=== PATIENT | male | born 1945 | race Caucasian/White ===

== ENCOUNTER 2017-12-21 21:33 | Inpatient (IN) | payer MEDICARE ==
[2017-12-21 22:20] LABS: #Monocytes 0.5 thou/uL (0.11-0.59); #Neutrophils 6.8 thou/uL (1.40-6.50); %Basophils 0.1 % (0.0-1.0); %Eosinophils 0.4 % (0.0-10.0); %Lymphocytes 20.9 % (21.0-51.0); %Monocytes 5.8 % (0.0-10.0); %Neutrophils 72.8 % (42.0-75.0); Hemoglobin 8.9 g/dL (14.0-18.0); Mean Corpuscular HGB CONC 33.8 g/dL (32.0-36.0); Mean Corpuscular Hemoglobin 31.7 pg (27.0-31.0); Mean Corpuscular Volume 93.7 fL (78.0-98.0); Mean Platelet Volume 8.4 fL (7.4-10.4); Platelet Count 152 thou/uL (130-400); RBC Distribution Width 14.9 % (11.5-14.5); Red Blood Cell (RBC) Count 2.79 mill/uL (4.70-6.10); White Blood Cell (WBC) Count 9.3 thou/uL (4.8-10.8)
[2017-12-21 22:24] LABS: INR-International Normal Ratio 1.2; Prothrombin Time 14.9 SEC (12.0-14.7)
[2017-12-21] MEDS ORDERED: Pantoprazole 40 MG VIAL ONE (22:38)
[2017-12-21 22:44] LABS: ALT (SGPT) 21 U/L (8-55); AST (SGOT) 24 U/L (5-34); Albumin 3.3 g/dL (3.4-4.8); Alkaline Phosphatase 69 U/L (40-150); Anion Gap 12 mmol/L (10-20); BUN (Urea Nitrogen) 43 mg/dL (8.4-25.7); Bilirubin, Total 0.7 mg/dL (0.2-1.2); CK (CPK) 87 U/L (30-200); CKMB 2.8 ng/mL (0-6.6); Calc. Creatinine Clearance 0 mL/min (70-130); Calcium 8.4 mg/dL (7.8-10.44); Carbon Dioxide 26 mmol/L (23-31); Chloride 106 mmol/L (98-107); Estimated GFR-MDRD 70; Globulin 3.2 g/dL (2.4-3.5); Lipase 33 U/L (8-78); Magnesium 1.9 mg/dL (1.6-2.6); Potassium 4.5 mmol/L (3.5-5.1); Protein, Total 6.5 g/dL (5.8-8.1); Sodium 139 mmol/L (136-145); Troponin I Less than 0.010 ng/mL (< 0.028)
[2017-12-21 22:48] LABS: Glucose 152 mg/dL (83-110)
[2017-12-22] MEDS ORDERED: Sodium Chloride 0.45% 1,000 ML IV SCH (00:45)
[2017-12-22 02:04] LABS: #Eosinphils 0.1 thou/uL (0.0-0.7); #Lymphocytes 1.6 thou/uL (1.20-3.40); #Monocytes 0.5 thou/uL (0.11-0.59); #Neutrophils 6.4 thou/uL (1.40-6.50); %Basophils 0.1 % (0.0-1.0); %Eosinophils 1.5 % (0.0-10.0); %Lymphocytes 18.3 % (21.0-51.0); %Monocytes 5.6 % (0.0-10.0); %Neutrophils 74.5 % (42.0-75.0); Hemoglobin 7.9 g/dL (14.0-18.0); Mean Corpuscular HGB CONC 34.6 g/dL (32.0-36.0); Mean Corpuscular Hemoglobin 32.4 pg (27.0-31.0); Mean Corpuscular Volume 93.5 fL (78.0-98.0); Mean Platelet Volume 8.7 fL (7.4-10.4); Platelet Count 153 thou/uL (130-400); RBC Distribution Width 14.8 % (11.5-14.5); Red Blood Cell (RBC) Count 2.44 mill/uL (4.70-6.10); White Blood Cell (WBC) Count 8.5 thou/uL (4.8-10.8)
[2017-12-22 02:25] VITALS: BMI 47.0
[2017-12-22] MEDS ORDERED: Senokot 8.6 MG TAB PO PRN (03:20)
[2017-12-22] MEDS ORDERED: Acetaminophen 325 MG TAB PO PRN (03:20)
[2017-12-22] MEDS ORDERED: Nitroglycerin 0.4 MG TAB (25 Tab Bottle) PO PRN (03:20)
[2017-12-22] MEDS ORDERED: Mag-Al 1200 mg/1200 mg/30 ML UDCUP PO PRN (03:20)
[2017-12-22] MEDS ORDERED: Ondansetron HCl/PF 4 MG/2 ML Vial IVP PRN (03:20)
[2017-12-22] MEDS ORDERED: Calcium Carbonate 500 MG ChewTAB PO PRN (03:20)
[2017-12-22] MEDS ORDERED: Ondansetron ODT 4 MG TAB PO PRN (03:20)
[2017-12-22] MEDS ORDERED: Acetaminophen 650 MG Suppository PR PRN (03:20)
[2017-12-22] MEDS: Sodium Chloride 0.9% 1,000 ML IV SCH ×2 (05:16→11:50)
[2017-12-22] MEDS: Pantoprazole 80 MG in Sodium Chloride 0.9% 100 ML IVP SCH (05:16)
[2017-12-22 06:10] LABS: Hemoglobin 7.3 g/dL (14.0-18.0)
--- NOTE | 2017-12-22 07:01 | PDOC.EVN ---
Event Note - Event Note Event Note: Patient seen and examined. Note dictated. Full code. DPOA - spouse.
--- NOTE | 2017-12-22 08:15 | HP ---
DATE OF ADMISSION: 12/22/2017 PRIMARY CARE PHYSICIAN: Dr. Jansen PRIMARY FIRE PREVENTION FORESTER: Dr. Yong Sharpe. CHIEF COMPLAINT: Near syncopal episode with dark stool of 5 days' duration. HISTORY OF PRESENT ILLNESS: Patient is a 72-year-old male with degenerative joint disease on chronic NSAIDs presented to the emergency room with above complaints. Over the last 5-6 days, patient has been feeling weak and lightheaded along with dark stool. He also has a history of hemorrhoids in the past. He felt nauseous and has lost his appetite. No chest carline n, palpitations or syncope reported. The lightheadedness was mainly on standing. No change in bowel habits or weight loss reported. PAST MEDICAL HISTORY: 1. Morbid obesity. 2. Benign prostatic hypertrophy. 3. Morbid obesity with BMI 47.1. 4. Degenerative joint disease. PAST SURGICAL HISTORY: Colonoscopy. ALLERGIES: No known drug allergies. CURRENT HOME MEDICATIONS: Flomax daily, multivitamin daily and Aleve twice a day. SOCIAL HISTORY: The patient drinks alcohol socially. He is a former smoker. No drug use. FAMILY HISTORY: Negative for GI malignancies. REVIEW OF SYSTEMS: The following complete review of systems was negative, unless otherwise mentioned in the HPI or below: Constitutional: Weight loss or gain, ability to conduct usual activities. Skin: Rash, itching. Eyes: Double vision, pain. ENT/Mouth: Nose bleeding, neck stiffness, pain, tenderness. Cardiovascular: Palpitations, dyspnea on exertion, orthopnea. Respiratory: Shortness of breath, wheezing, cough, hemoptysis, fever or night sweats. Gastrointestinal: Poor appetite, abdominal pain, heartburn, nausea, vomiting, constipation, or diarr hea. Genitourinary: Urgency, frequency, dysuria, nocturia. Musculoskeletal: Pain, swelling. Neurologic/Psychiatric: Anxiety, depression. Allergy/Immunologic: Skin rash, bleeding tendency. PHYSICAL EXAMINATION: VITAL SIGNS: Temperature 98.3, pulse rate of 93, blood pressure 110/66. Orthostatic vitals were pos itive, O2 saturation 95% on room air. GENERAL: A 72-year-old male in no apparent distress. HEENT: Head is atraumatic, normocephalic, Sclerae are anicteric. Moist mucous membranes. Conjuncti va pale. No oral lesion. NECK: Supple, no JVD, no carotid bruit. LUNGS: Clear to auscultation bilaterally, no wheezing, rales or rhonchi. HEART: S1, S2 present. Regular rate and rhythm. No murmur, rubs, or gallops appreciated. ABDOMEN: Soft, nontender, bowel sounds present. EXTREMITIES: No edema or calf tenderness. NEUROLOGIC: Grossly nonfocal, moves all four extremities. PSYCHIATRY: Alert, awake, oriented x3. SKIN: Warm and dry. LYMPH NODES: No palpable lymph nodes in the neck. PERIPHERAL VASCULAR: Radial pulses palpable bilaterally. MUSCULOSKELETAL: No joint swelling or tenderness. LABORATORY DATA AND IMAGING DATA: H&H 7.3, on admission it was 8.9. INR 1.2, BUN 43, creatinine 1.0 4. Sodium and potassium normal range. Stool for occult blood in the emergency room was negative. T elemetry monitoring by my review showed sinus rhythm. IMPRESSION: 1. Near syncope secondary to upper gastrointestinal bleed. 2. Anemia secondary to acute gastrointestinal blood loss. 3. Chronic kidney disease stage 2. 4. Positive orthostatic vitals. 5. Hypotension secondary to #1. 6. Morbid obesity with body mass index of 47.1. 7. Degenerative joint disease. 8. Benign prostatic hypertrophy. PLAN: The patient will be monitored as inpatient on telemetry unit. We will keep him n.p.o. Contin ue Protonix drip with IV fluids. We will transfuse 1 unit of PRBC since his hemoglobin and hematocri t has dropped to 7.3. Will repeat labs in a.m. We will repeat hemoglobin and hematocrit this afterno on. Consult Gastroenterology. Plan of care was discussed with the patient in detail. He stated understanding. The patient will require 2-3 days for stabilization.
[2017-12-22] MEDS ORDERED: Pantoprazole 40 MG VIAL IVP SCH (09:00)
[2017-12-22] MEDS: Tamsulosin HCl 0.4 MG CAP PO SCH (10:27)
[2017-12-22] MEDS: Multivitamin W/ Minerals 1 TAB PO SCH (10:27)
[2017-12-22] MEDS ORDERED: PROPOFOL 200 MG/20 ML VIAL ONE (13:23)
--- NOTE | 2017-12-22 14:44 | CON ---
DATE OF CONSULTATION: 12/22/2017. GI INPATIENT CONSULTATION NOTE. REQUESTING PHYSICIAN: Dr. Linton. REASON FOR CONSULTATION: Upper GI bleeding. HISTORY OF PRESENT ILLNESS: Henok Lopez is a very pleasant 72-year-old man with a history of obes ity and degenerative joint disease. He takes Aleve twice per day. He has been seen in the past by m GI colleague, Dr. Yong Sharpe for screening colonoscopies. His last colonoscopy was in 07/2016. He had a small ascending colon polyp which was removed, also some diverticulosis and internal hemorrhoi ds. He has no chronic gastrointestinal symptoms. However, about 5 days ago, he started having a jet -black stools. This was new for him. He also started to feel progressively weak over the past few d ays with some orthostatic lightheadedness. He feels fine if he is lying down. Along with this, he h as had some mild nausea and a big decline in appetite. His last black stool was last night, but his orthostatic lightheadedness got a lot worse yesterday and this prompted his presentation last night. Admission hemoglobin was found to be 8.9 and just over the course of the night it has declined to 7. 3, BUN is elevated out of proportion to creatinine at 43 with creatinine only 1.04. Lipase and LFTs are normal. The patient has no prior history of gastrointestinal bleeding. He is currently on a Pro tonix drip and a second IV is being placed for planned blood transfusion. He is being moved to the [facility]. REVIEW OF SYSTEMS: Full review of systems including constitutional, head, eyes, ears, nose, throat, GI, , cardiovascular, respiratory, musculoskeletal, and neurologic systems is negative except as no roseann in the HPI. PAST MEDICAL HISTORY: Morbid obesity, benign prostatic hypertrophy, degenerative joint disease, colo n polyp 07/2016, colonic diverticulosis, internal hemorrhoids. ALLERGIES: No known drug allergies. OUTPATIENT MEDICATIONS: Aleve twice daily, Flomax, multivitamin. SOCIAL HISTORY: Alcohol use is social. He is a former smoker. No drug use. FAMILY HISTORY: Negative for GI malignancy. PHYSICAL EXAMINATION: VITAL SIGNS: Temperature 98.2, pulse 88, blood pressure 127/69. Last orthostatics from a couple of hours ago demonstrated a pulse 108 standing with blood pressure 86/53 standing. GENERAL: Obese 72-year-old man lying in bed comfortably, in no distress. SKIN: A bit pale, no jaundice, no rash visible or palpable. EYES: No scleral icterus. Extraocular movements intact. ENT: Mucous membranes moist, no oral lesions. LYMPH: No submandibular, supraclavicular lymphadenopathy. THYROID: Nontender to palpation. HEART: Regular rate and rhythm. LUNGS: Clear to auscultation bilaterally. ABDOMEN: Bowel sounds present, soft and nontender to palpation throughout. EXTREMITIES: No peripheral edema. VESSELS: Radial pulses 2+ bilaterally. NEUROLOGICAL: Cranial nerves II-XII intact bilaterally. No focal deficits. LABORATORY STUDIES: Sodium 139, potassium 4.5, BUN 43, creatinine 1.04, magnesium 2.0, glucose 152, total bilirubin 0.7, alkaline phosphatase 69, AST 24, ALT 21, albumin 3.3, lipase 33. Troponin negat avtar. INR is 1.2. Initial hemoglobin was 8.9 and this declined to 7.3, WBC is 8.5, platelets 153. ASSESSMENT AND PLAN: 1. Upper gastrointestinal bleeding. 2. Acute blood loss anemia. The patient's presentation does appear consistent with subacute upper GI bleeding over the past sever al days. He is now orthostatic with acute blood loss anemia. I agree with the IV PPI and with plan to blood transfusion. He is being moved to telemetry. We will plan for diagnostic upper endoscopy l ater today, with endoscopic intervention, depending on findings. Further recommendations following E GD. Thank you for the consultation. Please call any time with questions or concerns.
[2017-12-22 15:02] LABS: Hemoglobin 8.5 g/dL (14.0-18.0)
--- NOTE | 2017-12-22 15:16 | OP ---
DATE OF PROCEDURE: 12/22/2017 GI ENDOSCOPY NOTE SURGEON: Hernan Perkins M.D. RELOCATION ASSOCIATE SURGEON: None. PROCEDURE: Esophagogastroduodenoscopy with control of hemorrhage and biopsies. INDICATIONS: 1. Upper gastrointestinal bleeding. 2. Acute blood loss anemia. MEDICATIONS: See anesthesia record. FINDINGS: After discussion of the risks, benefits and alternatives of the procedure, informed consen t was obtained and witnessed. Pre-endoscopic cardiopulmonary examination was satisfactory. Timeout was performed before sedation was achieved. Sedation was achieved with anesthesia assistance in the endoscopy unit. A Pentax adult therapeutic upper endoscope was placed into the oropharynx and passed through the cricopharyngeus under direct visualization. The esophageal mucosa appeared normal throu ghout with a normal-appearing Z-line. There is no evidence of any esophageal varices. The endoscope was advanced into the stomach. Forward and retroflexed views of the entire gastric mucosa were obta ined. There was no evidence of any gastric varices. In the gastric fundus and body, there is some d iffuse erythema consistent with gastritis. Biopsies were obtained from the gastric antrum, body and fundus to rule out H. pylori infection. At the incisura, there is a deeply cratered ulcer measuring about 1 cm at the base. There is a large visible vessel at the base with only some mild oozing of bl ood around the ulcer bed. This visible vessel is felt to be the cause for his acute bleeding. I ayah ckly, but carefully examined the gastric antrum, which appeared relatively normal. It would be on th e pylorus and into the first and second portions of the duodenum, which also appeared normal. Attent ion was then directed back to the incisural ulcer with visible vessel. I used a 10-[place] bipolar pr obe to cauterize the visible vessel in the ulcer bed. Good hemostasis was achieved. At this point. The endoscope was completely withdrawn and the patient allowed to recover. The patient tolerated th e procedure well. There were no immediate post-procedure complications. IMPRESSION: 1. One cm deep ulcer at the gastric incisura, with visible vessel and slow oozing. Cauterized with 10-[place] bipolar probe with good hemostasis. 2. Gastritis in the fundus and body, biopsied to rule out Helicobacter pylori. 3. Otherwise, normal esophagogastroduodenoscopy. RECOMMENDATIONS: 1. Continue on the IV Protonix drip for another 48 hours, then transition to Protonix 40 mg twice da jatin for at least the next 2 months. 2. N.p.o. today. If doing well tomorrow morning, advance diet to clear liquids. 3. Monitor H&H and transfuse as needed. 4. Follow up pathology on the gastric biopsies. If these are positive for Helicobacter pylori, fantasma t for triple therapy and confirm eradication. 5. Stop all nonsteroidal anti-inflammatory drugs, including his Aleve. 6. We will plan to repeat EGD in 2 months to document ulcer healing. 7. GI will continue to follow along. Please call any time with questions or concerns.
--- NOTE | 2017-12-22 20:53 | PDOC.EVN ---
Event Note - Event Note Event Note: pt seen an examined. pt going for EGD today.
[2017-12-23] MEDS: Pantoprazole 80 MG in Sodium Chloride 0.9% 100 ML IVP SCH ×3 (03:09→19:47)
[2017-12-23 05:24] LABS: ALT (SGPT) 15 U/L (8-55); AST (SGOT) 21 U/L (5-34); Alkaline Phosphatase 59 U/L (40-150); Anion Gap 7 mmol/L (10-20); BUN (Urea Nitrogen) 35 mg/dL (8.4-25.7); Bilirubin, Total 0.7 mg/dL (0.2-1.2); Calc. Creatinine Clearance 126 mL/min (70-130); Calcium 8.1 mg/dL (7.8-10.44); Carbon Dioxide 27 mmol/L (23-31); Chloride 111 mmol/L (98-107); Estimated GFR-MDRD 66; Globulin 2.9 g/dL (2.4-3.5); Glucose 106 mg/dL (83-110); Potassium 4.3 mmol/L (3.5-5.1); Protein, Total 5.9 g/dL (5.8-8.1); Sodium 141 mmol/L (136-145)
[2017-12-23 05:54] LABS: Band 1 % (5-11); Eosinophils 4 % (0-10); Hemoglobin 7.6 g/dL (14.0-18.0); Lymphocytes 19 % (21-51); MDiff Complete? YES; Mean Corpuscular HGB CONC 34.9 g/dL (32.0-36.0); Mean Corpuscular Hemoglobin 32.6 pg (27.0-31.0); Mean Corpuscular Volume 93.6 fL (78.0-98.0); Mean Platelet Volume 8.2 fL (7.4-10.4); Metamyelocyte 1 % (0-0); Monocytes 10 % (0-10); Neutrophil 65 % (42-75); PLT Morphology Comment Appears Adequate; Platelet Count 137 thou/uL (130-400); RBC Distribution Width 15.9 % (11.5-14.5); RBC Morphology Normal; Red Blood Cell (RBC) Count 2.32 mill/uL (4.70-6.10); White Blood Cell (WBC) Count 7.5 thou/uL (4.8-10.8)
[2017-12-23] MEDS: Sodium Chloride 0.9% 1,000 ML IV SCH ×3 (08:51→16:54)
[2017-12-23] MEDS: Multivitamin W/ Minerals 1 TAB PO SCH (08:52)
[2017-12-23] MEDS: Tamsulosin HCl 0.4 MG CAP PO SCH (08:52)
--- NOTE | 2017-12-23 11:28 | PRG ---
DATE OF SERVICE: 12/23/2017 SUBJECTIVE: Mr. Lopez is feeling alright. He has been getting up and walking around. He has been tolerating his clear liquid diet. There is no abdominal pain or nausea. He has not had any bowel mo vements since his endoscopy yesterday. Hemoglobin did decline back down from 8.5-7.6. BUN declined down to 35. He has remained hemodynamically stable. OBJECTIVE: VITAL SIGNS: Temperature 98.0, pulse 70, blood pressure 99/50 standing and 102/54 supine, pulse 70, 97% oxygen saturation on room air. GENERAL: No acute distress. HEART: Regular rate and rhythm. LUNGS: Clear to auscultation bilaterally. ABDOMEN: Soft and nontender to palpation throughout. EXTREMITIES: No peripheral edema. LABORATORY STUDIES: Hemoglobin 7.6, WBC 7.5, platelets 137. INR 1.2. Sodium 141, potassium 4.3, BU N 35, creatinine 1.10. LFTs all normal. ASSESSMENT AND PLAN: 1. Gastric ulcer with hemorrhage, status post bipolar cautery on EGD yesterday, 12/22/2017. 2. Gastritis in the gastric fundus and body. 3. Acute blood loss anemia. I see no clear evidence of recurrent gastrointestinal bleeding this morning. Continue to monitor the H and H. Continue the Protonix drip. We will advance his diet to a full liquid diet today. Again, recommend no further nonsteroidal anti-inflammatory drugs going forward. Awaiting results on gastri c biopsies as well. Still planning for repeat EGD at a 2-month interval.
--- NOTE | 2017-12-23 15:28 | PDOC.PN ---
- Subjective Encounter Start Date: 12/23/17 Encounter Start Time: 07:20 Pt seen for followup re: symtpomatic anemia. Denies chest pain, shortness of breath, fevers or chills. No nausea or vomiting. - Objective Resuscitation Status: Resuscitation Status FULL:Full Resuscitation MAR Reviewed: Yes Vital Signs & Weight: Vital Signs (12 hours) Temp Pulse Resp BP BP BP BP 12/23/17 12:00 97.8 F 75 18 119/64 12/23/17 10:47 127/57 L 12/23/17 08:00 98.0 F 70 14 12/23/17 07:50 98.0 F 70 14 99/50 L 100/52 L 102/54 L 12/23/17 04:00 97.6 F 81 16 123/59 L Pulse Ox 12/23/17 12:00 95 12/23/17 10:47 12/23/17 08:00 97 12/23/17 07:50 97 12/23/17 04:00 98 Weight Weight 332 lb 6.4 oz I&O: 12/22/17 12/23/17 12/24/17 06:59 06:59 06:59 Intake Total 1265 Balance 1265 Result Diagrams: 12/23/17 04:47 12/23/17 04:47 EKG Reviewed by me: Yes (Tele: NSR) Phys Exam - Physical Examination Morbid obesity HEENT: moist MMs, sclera anicteric, oral pharynx no lesions, 2+ tonsils Neck: no nodes, no JVD, supple, full ROM Respiratory: no wheezing, no rales, no rhonchi, clear to auscultation bilateral Cardiovascular: RRR, no rub S1, S2 Gastrointestinal: soft, non-tender, positive bowel sounds distention Neurological: moves all 4 limbs Psychiatric: normal affect Dx/Plan (1) Symptomatic anemia Code(s): D64.9 - ANEMIA, UNSPECIFIED Status: Acute Comment: s/p EGD with cautery of bleeding vessel. Follow H/H. Continue IV PPI drip. Avoid NSAIDs. (2) Gastric ulcer Code(s): K25.9 - GASTRIC ULCER, UNSP ACUTE OR CHRONIC, W/O HEMOR OR PERF Status: Acute Comment: Follow biopsy report. s/p cautery (3) BPH (benign prostatic hyperplasia) Code(s): N40.0 - BENIGN PROSTATIC HYPERPLASIA WITHOUT LOWER URINRY TRACT SYMP Status: Chronic Comment: stable (4) DJD (degenerative joint disease) Code(s): M19.90 - UNSPECIFIED OSTEOARTHRITIS, UNSPECIFIED SITE Status: Chronic Comment: avoid NSAIDs - Plan * . Review of Systems - Review of Systems Constitutional: negative: fever, chills, sweats, weakness, malaise Respiratory: negative: Cough, Shortness of Breath, SOB with Excertion, Sputum, Wheezing Cardiovascular: negative: chest pain, palpitations, orthopnea, paroxysmal nocturnal dyspnea, edema, light headedness Gastrointestinal: negative: Nausea, Vomiting, Abdominal Pain, Diarrhea, Constipation, Melena, Hematochezia Genitourinary: negative: Dysuria, Frequency, Incontinence, Hematuria, Retention Neurological: negative: Weakness, Numbness, Incoordination, Change in Speech, Confusion, Seizures - Medications/Allergies Allergies/Adverse Reactions: Allergies Allergy/AdvReac Type Severity Reaction Status Date / Time No Known Allergies Allergy Verified 12/22/17 02:22 Medications: Current Medications Acetaminophen (Tylenol) 650 mg PO Q4H PRN PRN Reason: Headache/Fever or Pain Acetaminophen (Tylenol) 650 mg [place] Q4H PRN PRN Reason: Headache/Fever or Pain Al Hydroxide/Mg Hydroxide (Maalox) 30 ml PO Q6H PRN PRN Reason: Heartburn or Indigestion Calcium Carbonate (Tums) 1,000 mg PO Q4H PRN PRN Reason: Heartburn or Indigestion Sodium Chloride (Normal Saline 0.9%) 1,000 mls @ 125 mls/hr IV .Q8H [facility] Last Admin: 12/23/17 08:52 Dose: 1,000 mls Pantoprazole Sodium 80 mg/ (Sodium Chloride) 100 mls @ 10 mls/hr IVP INF [facility] Last Admin: 12/23/17 08:50 Dose: 100 mls Iron/Minerals/Multivitamins (Theragran M) 1 tab PO DAILY [facility] Last Admin: 12/23/17 08:52 Dose: 1 tab Nitroglycerin (Nitrostat) 0.4 mg PO Q5MIN PRN PRN Reason: Chest Pain Ondansetron HCl (Zofran Odt) 4 mg PO Q6H PRN PRN Reason: Nausea/Vomiting Ondansetron HCl (Zofran) 4 mg IVP Q6H PRN PRN Reason: Nausea/Vomiting Senna (Senokot) 2 tab PO HSPRN PRN PRN Reason: Constipation Sodium Chloride (Flush - Normal Saline) 10 ml IVF Q12HR [facility] Last Admin: 12/23/17 08:52 Dose: Not Given Sodium Chloride (Flush - Normal Saline) 10 ml IVF PRN PRN PRN Reason: Saline Flush Tamsulosin HCl (Flomax) 0.4 mg PO DAILY [facility] Last Admin: 12/23/17 08:52 Dose: 0.4 mg
[2017-12-24] MEDS: Sodium Chloride 0.9% 1,000 ML IV SCH ×2 (00:45→08:36)
[2017-12-24] MEDS: Pantoprazole 80 MG in Sodium Chloride 0.9% 100 ML IVP SCH (05:56)
[2017-12-24] MEDS: Multivitamin W/ Minerals 1 TAB PO SCH (08:35)
[2017-12-24] MEDS: Tamsulosin HCl 0.4 MG CAP PO SCH (08:35)
[2017-12-24 08:55] LABS: #Eosinphils 0.1 thou/uL (0.0-0.7); #Lymphocytes 1.4 thou/uL (1.20-3.40); #Monocytes 0.2 thou/uL (0.11-0.59); #Neutrophils 4.7 thou/uL (1.40-6.50); %Basophils 0.1 % (0.0-1.0); %Eosinophils 1.5 % (0.0-10.0); %Lymphocytes 22.1 % (21.0-51.0); %Monocytes 3.7 % (0.0-10.0); %Neutrophils 72.6 % (42.0-75.0); Hemoglobin 7.3 g/dL (14.0-18.0); Mean Corpuscular HGB CONC 33.6 g/dL (32.0-36.0); Mean Corpuscular Hemoglobin 31.9 pg (27.0-31.0); Mean Platelet Volume 8.2 fL (7.4-10.4); Platelet Count 138 thou/uL (130-400); White Blood Cell (WBC) Count 6.4 thou/uL (4.8-10.8)
[2017-12-24 09:07] LABS: Anion Gap 7 mmol/L (10-20); BUN (Urea Nitrogen) 16 mg/dL (8.4-25.7); Calc. Creatinine Clearance 135 mL/min (70-130); Carbon Dioxide 26 mmol/L (23-31); Chloride 110 mmol/L (98-107); Estimated GFR-MDRD 70; Glucose 122 mg/dL (83-110); Potassium 3.9 mmol/L (3.5-5.1); Sodium 139 mmol/L (136-145)
--- NOTE | 2017-12-24 16:07 | PDOC.PN ---
- Subjective Encounter Start Date: 12/24/17 Encounter Start Time: 08:20 Pt seen for followup re: symptomatic anemia. Denies chest pain, shortness of breath, fevers, chills, nausea, vomiting or diarrhea. - Objective Resuscitation Status: Resuscitation Status FULL:Full Resuscitation MAR Reviewed: Yes Vital Signs & Weight: Vital Signs (12 hours) Temp Pulse Resp BP Pulse Ox 12/24/17 15:15 97.5 F L 62 16 118/65 96 12/24/17 11:29 98.3 F 66 12 117/58 L 99 12/24/17 08:28 97.8 F 68 12 111/54 L 99 Weight Weight 332 lb 6.4 oz I&O: 12/23/17 12/24/17 12/25/17 06:59 06:59 06:59 Intake Total 1265 2609 Balance 1265 2609 Result Diagrams: 12/24/17 08:28 12/24/17 08:28 EKG Reviewed by me: Yes (Tele: NSR) Phys Exam - Physical Examination Morbid obesity HEENT: moist MMs Neck: supple Respiratory: clear to auscultation bilateral Cardiovascular: RRR Gastrointestinal: soft Neurological: moves all 4 limbs Psychiatric: normal affect Dx/Plan (1) Symptomatic anemia Code(s): D64.9 - ANEMIA, UNSPECIFIED Status: Acute Comment: disontinue IV PPI drip today evening, avoid NSAIDs. Start BID PPI today evening (2) Gastric ulcer Code(s): K25.9 - GASTRIC ULCER, UNSP ACUTE OR CHRONIC, W/O HEMOR OR PERF Status: Acute Comment: await path report (3) BPH (benign prostatic hyperplasia) Code(s): N40.0 - BENIGN PROSTATIC HYPERPLASIA WITHOUT LOWER URINRY TRACT SYMP Status: Chronic Comment: stable (4) DJD (degenerative joint disease) Code(s): M19.90 - UNSPECIFIED OSTEOARTHRITIS, UNSPECIFIED SITE Status: Chronic Comment: stable, avoid NSAIDs - Plan * . Review of Systems - Review of Systems Cardiovascular: negative: chest pain, palpitations, orthopnea, paroxysmal nocturnal dyspnea, edema, light headedness Gastrointestinal: negative: Nausea, Vomiting, Abdominal Pain, Diarrhea, Constipation, Melena, Hematochezia - Medications/Allergies Allergies/Adverse Reactions: Allergies Allergy/AdvReac Type Severity Reaction Status Date / Time No Known Allergies Allergy Verified 12/22/17 02:22 Medications: Current Medications Acetaminophen (Tylenol) 650 mg PO Q4H PRN PRN Reason: Headache/Fever or Pain Acetaminophen (Tylenol) 650 mg RI Q4H PRN PRN Reason: Headache/Fever or Pain Al Hydroxide/Mg Hydroxide (Maalox) 30 ml PO Q6H PRN PRN Reason: Heartburn or Indigestion Calcium Carbonate (Tums) 1,000 mg PO Q4H PRN PRN Reason: Heartburn or Indigestion Iron/Minerals/Multivitamins (Theragran M) 1 tab PO DAILY [facility] Last Admin: 12/24/17 08:35 Dose: 1 tab Nitroglycerin (Nitrostat) 0.4 mg PO Q5MIN PRN PRN Reason: Chest Pain Ondansetron HCl (Zofran Odt) 4 mg PO Q6H PRN PRN Reason: Nausea/Vomiting Ondansetron HCl (Zofran) 4 mg IVP Q6H PRN PRN Reason: Nausea/Vomiting Pantoprazole Sodium (Protonix) 40 mg PO BID [facility] Senna (Senokot) 2 tab PO HSPRN PRN PRN Reason: Constipation Sodium Chloride (Flush - Normal Saline) 10 ml IVF Q12HR [facility] Last Admin: 12/24/17 08:35 Dose: 10 ml Sodium Chloride (Flush - Normal Saline) 10 ml IVF PRN PRN PRN Reason: Saline Flush Tamsulosin HCl (Flomax) 0.4 mg PO DAILY [facility] Last Admin: 12/24/17 08:35 Dose: 0.4 mg
--- NOTE | 2017-12-24 20:01 | PRG ---
DATE OF SERVICE: 12/24/2017 SUBJECTIVE: The patient is feeling well. He is not having any problems swallowing or eating. OBJECTIVE: VITAL SIGNS: Temperature 97.5, pulse 62, respiratory rate 16, blood pressure 118/65. CHEST: Clear. CARDIOVASCULAR: Regular rate and rhythm. ABDOMEN: Soft, nontender, without organomegaly or masses. LABORATORY DATA: Shows hemoglobin 7.3, hematocrit 21.9. ASSESSMENT: 1. Gastric ulcer. 2. GI blood loss. RECOMMENDATIONS: 1. Continue proton pump inhibitor. 2. Advance diet. 3. Home, possibly tomorrow evening.
[2017-12-24] MEDS ORDERED: Diltiazem HCl 125 MG, Admixture Fee 1 EACH in Sodium Chloride 0.9% 100 ML IVPB SCH (22:15)
[2017-12-25] MEDS ORDERED: Digoxin 0.5 MG/2 ML AMP ONE (00:16)
[2017-12-25 05:08] LABS: #Eosinphils 0.1 thou/uL (0.0-0.7); #Lymphocytes 1.2 thou/uL (1.20-3.40); #Monocytes 0.3 thou/uL (0.11-0.59); %Basophils 0.4 % (0.0-1.0); %Lymphocytes 21.4 % (21.0-51.0); %Monocytes 5.9 % (0.0-10.0); %Neutrophils 71.3 % (42.0-75.0); Hemoglobin 7.4 g/dL (14.0-18.0); Mean Corpuscular HGB CONC 34.5 g/dL (32.0-36.0); Mean Corpuscular Hemoglobin 32.8 pg (27.0-31.0); Mean Corpuscular Volume 95.2 fL (78.0-98.0); Mean Platelet Volume 8.3 fL (7.4-10.4); Platelet Count 139 thou/uL (130-400); Red Blood Cell (RBC) Count 2.25 mill/uL (4.70-6.10); White Blood Cell (WBC) Count 5.7 thou/uL (4.8-10.8)
[2017-12-25 05:21] LABS: Anion Gap 10 mmol/L (10-20); BUN (Urea Nitrogen) 12 mg/dL (8.4-25.7); Calc. Creatinine Clearance 136 mL/min (70-130); Calcium 8.4 mg/dL (7.8-10.44); Carbon Dioxide 25 mmol/L (23-31); Chloride 109 mmol/L (98-107); Estimated GFR-MDRD 71; Glucose 115 mg/dL (83-110); Potassium 4.1 mmol/L (3.5-5.1); Sodium 140 mmol/L (136-145)
[2017-12-25] MEDS: Tamsulosin HCl 0.4 MG CAP PO SCH (09:15)
[2017-12-25] MEDS: Multivitamin W/ Minerals 1 TAB PO SCH (09:15)
--- NOTE | 2017-12-25 12:09 | PRG ---
DATE OF SERVICE: 12/25/2017 SUBJECTIVE: The patient is feeling well, tolerating a regular diet. He has had no bowel movements t júnior. OBJECTIVE: VITAL SIGNS: Temperature 97.8, pulse 76, respiratory rate 16, blood pressure 123/58. CHEST: Clear. CARDIOVASCULAR: Regular rate and rhythm. ABDOMEN: Benign. LABORATORY DATA: Shows hemoglobin 7.4, hematocrit 21.5. ASSESSMENT: 1. Gastric ulcer. 2. Anemia secondary to gastrointestinal blood loss. 3. Atrial fibrillation. RECOMMENDATIONS: 1. Continue proton pump inhibitor. 2. Repeat EGD as an outpatient in 2-3 months.
--- NOTE | 2017-12-25 13:12 | CON ---
DATE OF CONSULTATION: 12/25/2017 REASON FOR CONSULTATION: Atrial fibrillation. PRIMARY GUN NUMBERER: None. HISTORY OF PRESENT ILLNESS: Mr. Lopez is a very pleasant 72-year-old gentleman with a history of li rosa obstructive sleep apnea who recently presented with a GI bleed. He was found to have a bleeding ulcer. He was cauterized. He has been on telemetry monitoring. His hemoglobin has been marginal i n the 7.9 to 8.4 range. He developed atrial fibrillation with rapid ventricular response last night. He was placed on IV Cardizem. It lasted for less than 12 hours. He spontaneously converted back t o sinus rhythm. He likely has a history of sleep apnea. His states his primary care provider had been trying to get a sleep study performed. He has been resistant in the past. PAST MEDICAL HISTORY: BPH, likely obstructive sleep apnea, DJD. ALLERGIES: None. MEDICATIONS: Flomax and Aleve. FAMILY HISTORY: Negative for CAD. SOCIAL HISTORY: No current tobacco or alcohol use. REVIEW OF SYSTEMS: Ten-point review of systems is reviewed and as above, otherwise negative. PHYSICAL EXAMINATION: GENERAL: Patient is a pleasant male who is in no acute distress. The patient appears his stated age . VITAL SIGNS: Blood pressure 123/58, pulse 76, temperature 97.8. NEUROLOGIC: The patient is alert and oriented times 3 with no focal neurologic deficits. HEENT: Sclerae without icterus. Mouth has moist mucous membranes with normal pallor. NECK: No JVD. Carotid upstroke brisk. No bruits bilaterally. LUNGS: Clear to auscultation with unlabored respirations. BACK: No scoliosis or kyphosis. CARDIAC: Regular rate and rhythm with normal S1 and S2. No S3 or S4 noted. No significant rubs, mu rmurs, thrills, or gallops noted throughout the precordium. PMI is not displaced. There is no jason ternal heave. ABDOMEN: Soft, nontender, nondistended. No peritoneal signs present. No hepatosplenomegaly. No ab normal striae. EXTREMITIES: 2+ femoral and 2+ dorsalis pedis pulses. No cyanosis, clubbing, or edema. SKIN: No gross abnormalities. PERTINENT LABS: Hemoglobin 7.4, sodium 140, creatinine 1.03. IMPRESSION: 1. New onset atrial fibrillation. 2. Gastrointestinal bleed. RECOMMENDATIONS: Mr. Lopez's recent episode of atrial fibrillation is likely multifactorial. He antonio lee has obstructive sleep apnea. He is obese with a short neck. His states he snores and has apneic episodes. This is also likely complicated by low hemoglobin. At this point, I would recommen d low dose beta silvano therapy. We will avoid anticoagulation therapy given recent GI bleed. May c onsider 1 unit of packed red blood cells to increase his hemoglobin. Would monitor overnight. If st able overnight, would be okay from my standpoint to discharge home with an outpatient 3-week event re cyndie.
--- NOTE | 2017-12-25 15:11 | PDOC.PN ---
- Subjective Encounter Start Date: 12/25/17 Encounter Start Time: 15:09 pt seen for followup re: H. pylori gastritis. Denies chest pain, shortness of breath, fevers or chills. - Objective Resuscitation Status: Resuscitation Status FULL:Full Resuscitation MAR Reviewed: Yes Vital Signs & Weight: Vital Signs (12 hours) Temp Pulse Resp BP BP Pulse Ox 12/25/17 12:33 98.3 F 78 16 122/64 97 12/25/17 09:08 97.8 F 76 14 123/58 L 96 12/25/17 04:00 97.5 F L 72 20 95/59 L 99 Weight Weight 339 lb 6.4 oz I&O: 12/24/17 12/25/17 12/26/17 06:59 06:59 06:59 Intake Total 2609 1593 Balance 2609 1593 Result Diagrams: 12/25/17 04:50 12/25/17 04:50 EKG Reviewed by me: Yes (Tele: NSR) Phys Exam - Physical Examination Morbid obesity HEENT: moist MMs Neck: supple Respiratory: clear to auscultation bilateral Cardiovascular: RRR Gastrointestinal: soft Neurological: moves all 4 limbs Psychiatric: normal affect Dx/Plan (1) Helicobacter pylori gastritis Code(s): K29.70 - GASTRITIS, UNSPECIFIED, WITHOUT BLEEDING; B96.81 - HELICOBACTER PYLORI THE CAUSE OF DISEASES CLASSD ELSWHR Status: Acute Comment: start triple therapy, pt and family updated (2) Atrial fibrillation with RVR Code(s): I48.91 - UNSPECIFIED ATRIAL FIBRILLATION Status: Acute Comment: Pt started on low-dose beta silvano. Not on anticoagulation due to recent GI bleed. (3) Symptomatic anemia Code(s): D64.9 - ANEMIA, UNSPECIFIED Status: Acute Comment: hemoglobin stable (4) BPH (benign prostatic hyperplasia) Code(s): N40.0 - BENIGN PROSTATIC HYPERPLASIA WITHOUT LOWER URINRY TRACT SYMP Status: Chronic Comment: stable (5) DJD (degenerative joint disease) Code(s): M19.90 - UNSPECIFIED OSTEOARTHRITIS, UNSPECIFIED SITE Status: Chronic Comment: avoid NSAIDs - Plan * . Review of Systems - Review of Systems Cardiovascular: negative: chest pain, palpitations, orthopnea, paroxysmal nocturnal dyspnea, edema, light headedness Gastrointestinal: negative: Nausea, Vomiting, Abdominal Pain, Diarrhea, Constipation, Melena, Hematochezia - Medications/Allergies Allergies/Adverse Reactions: Allergies Allergy/AdvReac Type Severity Reaction Status Date / Time No Known Allergies Allergy Verified 12/22/17 02:22 Medications: Current Medications Acetaminophen (Tylenol) 650 mg PO Q4H PRN PRN Reason: Headache/Fever or Pain Acetaminophen (Tylenol) 650 mg MD Q4H PRN PRN Reason: Headache/Fever or Pain Al Hydroxide/Mg Hydroxide (Maalox) 30 ml PO Q6H PRN PRN Reason: Heartburn or Indigestion Amoxicillin (Amoxil) 1,000 mg PO BID [facility] Calcium Carbonate (Tums) 1,000 mg PO Q4H PRN PRN Reason: Heartburn or Indigestion Clarithromycin (Biaxin) 500 mg PO Q12HR [facility] Diltiazem HCl 125 mg/Miscellaneous Medication 1 each/ Sodium Chloride 125 mls @ 10 mls/hr IVPB INF [facility]; Protocol Last Admin: 12/25/17 00:30 Dose: 125 mls Iron/Minerals/Multivitamins (Theragran M) 1 tab PO DAILY [facility] Last Admin: 12/25/17 09:15 Dose: 1 tab Nitroglycerin (Nitrostat) 0.4 mg PO Q5MIN PRN PRN Reason: Chest Pain Ondansetron HCl (Zofran Odt) 4 mg PO Q6H PRN PRN Reason: Nausea/Vomiting Ondansetron HCl (Zofran) 4 mg IVP Q6H PRN PRN Reason: Nausea/Vomiting Pantoprazole Sodium (Protonix) 40 mg PO BID [facility] Last Admin: 12/25/17 09:15 Dose: 40 mg Senna (Senokot) 2 tab PO HSPRN PRN PRN Reason: Constipation Sodium Chloride (Flush - Normal Saline) 10 ml IVF Q12HR [facility] Last Admin: 12/25/17 09:15 Dose: 10 ml Sodium Chloride (Flush - Normal Saline) 10 ml IVF PRN PRN PRN Reason: Saline Flush Tamsulosin HCl (Flomax) 0.4 mg PO DAILY [facility] Last Admin: 12/25/17 09:15 Dose: 0.4 mg
[2017-12-25] MEDS: AMOXicillin 250 MG CAP PO SCH (20:31)
[2017-12-25] MEDS: Clarithromycin 500 MG TAB PO SCH (20:32)
[2017-12-26 05:26] LABS: #Eosinphils 0.1 thou/uL (0.0-0.7); #Lymphocytes 1.5 thou/uL (1.20-3.40); #Monocytes 0.5 thou/uL (0.11-0.59); #Neutrophils 4.5 thou/uL (1.40-6.50); %Basophils 0.1 % (0.0-1.0); %Eosinophils 1.2 % (0.0-10.0); %Lymphocytes 22.3 % (21.0-51.0); %Monocytes 7.4 % (0.0-10.0); %Neutrophils 68.9 % (42.0-75.0); Hemoglobin 7.6 g/dL (14.0-18.0); Mean Corpuscular HGB CONC 33.3 g/dL (32.0-36.0); Mean Corpuscular Volume 96.1 fL (78.0-98.0); Mean Platelet Volume 8.1 fL (7.4-10.4); Platelet Count 137 thou/uL (130-400); RBC Distribution Width 16.1 % (11.5-14.5); Red Blood Cell (RBC) Count 2.38 mill/uL (4.70-6.10); White Blood Cell (WBC) Count 6.6 thou/uL (4.8-10.8)
[2017-12-26 05:41] LABS: Anion Gap 11 mmol/L (10-20); BUN (Urea Nitrogen) 12 mg/dL (8.4-25.7); Calc. Creatinine Clearance 143 mL/min (70-130); Calcium 8.4 mg/dL (7.8-10.44); Carbon Dioxide 26 mmol/L (23-31); Chloride 106 mmol/L (98-107); Estimated GFR-MDRD 73; Glucose 104 mg/dL (83-110); Potassium 3.9 mmol/L (3.5-5.1); Sodium 139 mmol/L (136-145)
[2017-12-26] MEDS: Tamsulosin HCl 0.4 MG CAP PO SCH (08:49)
[2017-12-26] MEDS: AMOXicillin 250 MG CAP PO SCH (08:49)
[2017-12-26] MEDS: Clarithromycin 500 MG TAB PO SCH (08:49)
[2017-12-26] MEDS: Multivitamin W/ Minerals 1 TAB PO SCH (08:49)
[2017-12-26 11:33] VITALS: BP 105/63; TEMP 98.9
--- NOTE | 2017-12-26 12:03 | DIS ---
DATE OF ADMISSION: 12/22/2017 DATE OF DISCHARGE: 12/26/2017 PRIMARY CARE PROVIDER: Timmy Jansen M.D. DISCHARGE DIAGNOSIS: Symptomatic anemia. DISCHARGE DIAGNOSES: 1. Anemia of acute blood loss. 2. Gastric ulcer. 3. Helicobacter pylori gastritis. 4. Atrial fibrillation. 5. Supraventricular tachycardia. CONDITION OF PATIENT ON THE DAY OF DISCHARGE: Stable. I assessed Mr. Lopez on the day of discharge . He denies any chest pain or shortness of breath. Vital signs are stable. S1 and S2 are heard, re gular. Lungs are clear to auscultation bilaterally. CONSULTATIONS DURING THIS HOSPITALIZATION: Gastroenterology, Dr. Becerra; Cardiology, Dr. Carrington schultz. DISCHARGE MEDICATIONS: Multivitamins 1 tablet daily, Flomax 0.4 mg daily, amoxicillin 1000 mg 2 time s a day for 13 more days, Biaxin 500 mg 2 times a day for 13 more days, Toprol-XL 25 mg daily, Proton ix 40 mg 2 times a day. The patient has been advised to stop nonsteroidal anti-inflammatory agents. HOSPITAL COURSE: Mr. Lopez is a pleasant 72-year-old gentleman who was admitted to [facility] for a syncopal episode secondary to anemia of acute blood loss due to gastrointesti nal bleed. Please refer to Dr. Lawrence's history and physical note dated 12/22/2017 for further detail s. He was seen by Gastroenterology Service. He underwent esophagogastroduodenoscopy on 12/22/2017. He had 1 cm deep ulcer at the gastric incisura with visible vessel and slow oozing, cauterized with good hemostasis. He also had biopsies to rule out Helicobacter pylori. Biopsy report showed Helicob acter pylori, chronic active gastritis and focal intestinal metaplasia. There was no histologic evid ence of dysplasia or lymphoproliferative disorder. He has been started on triple therapy. Towards the end of the hospitalization, he had a run of atrial fibrillation as well as supraventricul ar tachycardia. He was seen by Cardiology Service. He has been started on a beta silvano. Because of recent GI bleed, he has not been started on anticoagulation. He received 1 unit packed RBC transfusion during this hospitalization. On the day of discharge, he has white count 6,600, hemoglobin 7.6, platelet count 137,000 and normal Chem-7. Many thanks for allowing me to participate in your patient's care. Please feel free to contact me wi th any questions or concerns. DISCHARGE DESTINATION: Home. TOTAL AMOUNT OF TIME SPENT COORDINATING THIS DISCHARGE: 33 minutes.
== END 2017-12-26 13:45 | disposition home or self-care (01) | DRG 378 ==
LOC: ERS 21:33 → 2SW 12-22 00:43 → OBSVTOIN 12-22 02:52 → 2NO 12-22 10:26
PROVIDERS: ADMIT Internal Medicine; ATTEND Internal Medicine
PROC: 0W3P8ZZ Control Bleeding in Gastrointestinal Tract, Via Natural or Artificial Opening Endoscopic (ICD-10-PCS; principal; 2017-12-22)
PROC: 0DB78ZX Excision of Stomach, Pylorus, Via Natural or Artificial Opening Endoscopic, Diagnostic (ICD-10-PCS; 2017-12-22)
PROC: 30233N1 Transfusion of Nonautologous Red Blood Cells into Peripheral Vein, Percutaneous Approach (ICD-10-PCS; 2017-12-22)
DX: K25.4 Chronic or unspecified gastric ulcer with hemorrhage (principal); D62 Acute posthemorrhagic anemia; Z68.42 Body mass index [BMI] 45.0-49.9, adult; N17.9 Acute kidney failure, unspecified; I47.1 Supraventricular tachycardia; E66.01 Morbid (severe) obesity due to excess calories; N40.0 Benign prostatic hyperplasia without lower urinary tract symptoms; Z87.891 Personal history of nicotine dependence; I95.1 Orthostatic hypotension; I12.9 Hypertensive chronic kidney disease with stage 1 through stage 4 chronic kidney disease, or unspecified chronic kidney disease; N18.2 Chronic kidney disease, stage 2 (mild); K29.70 Gastritis, unspecified, without bleeding; I48.91 Unspecified atrial fibrillation; K29.60 Other gastritis without bleeding; K31.89 Other diseases of stomach and duodenum; G47.33 Obstructive sleep apnea (adult) (pediatric); M19.90 Unspecified osteoarthritis, unspecified site; B96.81 Helicobacter pylori [H. pylori] as the cause of diseases classified elsewhere
CPT/HCPCS: 36415; 36430; 80048; 80053; 82274; 82550; 82553; 83690; 83735; 84484; 85025; 85610; 86850; 86900; 86901; 88305; 88312; 94760; 96361; 96374; A4216; C9113; J1160; J2704; J3490; J7050; P9016

== ENCOUNTER 2019-01-28 01:22 | Inpatient (IN) | payer MEDICARE ==
[2019-01-28] MEDS ORDERED: Piperacillin/Tazobactam 4.5 GM VIAL ONE (01:42)
[2019-01-28 01:47] LABS: Hemoglobin 12.8 g/dL (14.0-18.0); Mean Corpuscular HGB CONC 33.6 g/dL (32.0-36.0); Mean Corpuscular Hemoglobin 30.3 pg (27.0-31.0); Mean Corpuscular Volume 90.2 fL (78.0-98.0); RBC Distribution Width 14.7 % (11.5-14.5); Red Blood Cell (RBC) Count 4.21 mill/uL (4.70-6.10); White Blood Cell (WBC) Count 6.3 thou/uL (4.8-10.8)
[2019-01-28 02:05] LABS: ALT (SGPT) 66 U/L (8-55); AST (SGOT) 115 U/L (5-34); Albumin 3.3 g/dL (3.4-4.8); Alkaline Phosphatase 126 U/L (40-150); Anion Gap 18 mmol/L (10-20); BUN (Urea Nitrogen) 23 mg/dL (8.4-25.7); Bilirubin, Total 2.7 mg/dL (0.2-1.2); Calc. Creatinine Clearance 0 mL/min (70-130); Calcium 8.5 mg/dL (7.8-10.44); Carbon Dioxide 19 mmol/L (23-31); Chloride 97 mmol/L (98-107); Estimated GFR-MDRD 53; Globulin 4.1 g/dL (2.4-3.5); Glucose 111 mg/dL (83-110); Potassium 3.9 mmol/L (3.5-5.1); Protein, Total 7.4 g/dL (5.8-8.1); Sodium 130 mmol/L (136-145)
[2019-01-28 02:10] LABS: Band 25 % (5-11); Lymphocytes 7 % (21-51); MDiff Complete? YES; Mean Platelet Volume 9.1 fL (7.4-10.4); Monocytes 1 % (0-10); Neutrophil 67 % (42-75); Platelet Count 97 thou/uL (130-400); Platelet Morphology Comment Appears Decreased
[2019-01-28 02:27] LABS: CKMB 4.9 ng/mL (0-6.6)
[2019-01-28 03:33] LABS: Bilirubin Moderate (Negative); Blood, Urine Large (Negative); Glucose, Urine (Dipstick) 100 mg/dL (Negative); Leukocyte Large (Negative); Nitrite Positive (Negative); Protein, Urine (Dipstick) > or equal to 300 mg/dL (Neg-Trace)
[2019-01-28 03:36] LABS: Clarity Cloudy (Clear)
[2019-01-28 03:42] LABS: Bacteria/HPF 2+ HPF (None Seen); Renal Epithelial None Seen HPF (None Seen); Transitional Epithelial None Seen HPF (None Seen); WBC/HPF Greater than 50 HPF (0-3)
[2019-01-28 03:43] LABS: Other Microscopic Description Less than 2 mL rec'd
[2019-01-28] MEDS ORDERED: Norepinephrine 8 MG in Dextrose 5% in Water 242 ML IVPB PRN (03:53)
[2019-01-28] MEDS ORDERED: Acetaminophen 650 MG Suppository PR PRN (03:55)
[2019-01-28] MEDS ORDERED: MEROPENEM 1 GM/50 ML 1 GM in Premix Bag 1 BAG IVPB SCH (04:30)
--- NOTE | 2019-01-28 04:41 | PDOC.EVN ---
Event Note - Event Note Event Note: [id number] H&P dictated
--- NOTE | 2019-01-28 05:06 | HP ---
CHIEF COMPLAINT: Weakness. HISTORY OF PRESENT ILLNESS: Mr. Lopez is a 73-year-old male with past medical history of atrial fibrillation on Eliquis, bleeding ulcer, benign prostatic hypertrophy, among others, presented to the emergency room with weakness and ?fall. The patient reported that he called EMS after sliding off the bed and not being able to get up. He also reported fever and chills and shakiness. Workup in the emergency room, the patient was febrile, tachycardic, and hypotensive. The patient was found to have urinary tract infection. Blood pressure was low with systolic in the 80s. Central venous catheter was placed by the ED physician, the patient was given IV fluids, blood pressure remains low. The patient is going to be started on IV vasopressors. The patient has been complaining of burning micturition for the last 2 months? PAST MEDICAL HISTORY: 1. Atrial fibrillation, on Eliquis. 2. Benign prostatic hypertrophy. 3. Bleeding ulcer. PAST SURGICAL HISTORY: Reviewed and as per in the chart. SOCIAL HISTORY: He drinks socially. He is a former smoker. FAMILY HISTORY: Reviewed and noncontributory. ALLERGIES: NO KNOWN ALLERGIES. HOME MEDICATIONS: Please see home medication reconciliation form for updated medications. REVIEW OF SYSTEMS: Review of 14 systems negative except what is mentioned in the history of present illness. PHYSICAL EXAMINATION: GENERAL: The patient is awake, alert, not in acute distress. HEAD AND NECK: Normocephalic, atraumatic. NECK: Supple. CHEST: Fair bilateral air entry. HEART: S1, S2 regular, tachycardic. ABDOMEN: Obese, soft. Bowel sounds present. Nontender. NEUROLOGIC: Awake, alert, and oriented x3. No focal deficits. PSYCHIATRIC: Normal mood. EXTREMITIES: No clubbing, no cyanosis. ASSESSMENT: A 73-year-old male with history of atrial fibrillation, on Eliquis, presenting with weakness. The patient was found to be hypotensive, tachycardic, septic. 1. Septic shock secondary to urinary tract infection. The patient was given 3 L IV fluids. Blood pressure remains low. 2. Acute urinary tract infection. 3. Atrial fibrillation. 4. History of bleeding ulcers in the past, but the patient is still on Eliquis. PLAN: 1. Admit to the ICU. 2. Septic workup including blood cultures and urine cultures. 3. Start the patient on IV antibiotics, meropenem, and vancomycin, awaiting culture results. 4. IV fluids. 5. IV Levophed, titrate to MAP more than 65. 6. Reconcile home medications. 7. DVT prophylaxis. Continue with home anticoagulant. 8. GI prophylaxis. 9. Expected length of stay 3 midnights or more. Job ID: [id number]
[2019-01-28 05:27] LABS: Troponin I 0.214 ng/mL (< 0.028)
[2019-01-28] MEDS ORDERED: Meropenem 1 GM in Sodium Chloride 0.9% 100 ML IVPB SCH (06:00)
[2019-01-28 08:04] LABS: Hemoglobin 11.6 g/dL (14.0-18.0); Mean Corpuscular Hemoglobin 30.1 pg (27.0-31.0); Mean Corpuscular Volume 88.4 fL (78.0-98.0); Platelet Count 98 thou/uL (130-400); RBC Distribution Width 14.6 % (11.5-14.5); Red Blood Cell (RBC) Count 3.86 mill/uL (4.70-6.10)
--- NOTE | 2019-01-28 08:12 | RAD ---
Frontal radiograph chest: 01/28/2019 at 1:54 AM COMPARISON: None HISTORY: Cough, fall FINDINGS: Linear density overlies the right lung base suggesting artifact. There is prominence of the cardiac silhouette. No lobar consolidation or alveolar edema. Prominent degenerative change of bilateral acromioclavicular joints. IMPRESSION: No focal consolidation or alveolar edema.
[2019-01-28 08:17] LABS: Troponin I 0.205 ng/mL (< 0.028)
--- NOTE | 2019-01-28 08:18 | RAD ---
Portable upright frontal chest radiograph: 01/28/2019 3:55 AM COMPARISON: 01/28/2019 1:54 AM HISTORY: Evaluate chest following central line placement FINDINGS: New left-sided vascular catheter present, distal tip overlying the region of the origin of the SVC. Stable mild increased linear interstitial density. Stable nonspecific prominence of the cardiac silhouette. No lobar consolidation, or alveolar edema, or evidence of pneumothorax. IMPRESSION: Portable chest radiograph as above.
[2019-01-28 08:20] LABS: ALT (SGPT) 70 U/L (8-55); AST (SGOT) 119 U/L (5-34); Alkaline Phosphatase 124 U/L (40-150); Anion Gap 11 mmol/L (10-20); BUN (Urea Nitrogen) 21 mg/dL (8.4-25.7); Bilirubin, Total 3.4 mg/dL (0.2-1.2); Calc. Creatinine Clearance 102 mL/min (70-130); Calcium 7.9 mg/dL (7.8-10.44); Carbon Dioxide 23 mmol/L (23-31); Chloride 103 mmol/L (98-107); Estimated GFR-MDRD 59; Globulin 3.4 g/dL (2.4-3.5); Glucose 109 mg/dL (83-110); Potassium 3.4 mmol/L (3.5-5.1); Protein, Total 6.4 g/dL (5.8-8.1); Sodium 134 mmol/L (136-145)
[2019-01-28 08:29] LABS: Band 29 % (5-11); Lymphocytes 3 % (21-51); MDiff Complete? YES; Monocytes 7 % (0-10); Neutrophil 60 % (42-75); Platelet Morphology Comment Appears Decreased; Polychromasia SLIGHT = 2-3 cells (100X) (0-2/hpf); Reactive Lymphocytes 1 % (0-10)
[2019-01-28] MEDS: Sodium Chloride 0.9% 1,000 ML IV SCH ×2 (08:45→14:07)
[2019-01-28] MEDS ORDERED: Famotidine/PF 20 mg/2ml Vial SLOW IVP SCH (09:00)
[2019-01-28] MEDS ORDERED: Enoxaparin Sodium 40 MG/0.4 ML SYRINGE SC SCH (09:00)
[2019-01-28] MEDS ORDERED: Vancomycin HCl 1 GM in Sodium Chloride 0.9% 250 ML 250 ML IVPB SCH (09:00)
[2019-01-28] MEDS: Apixaban 5 MG TAB PO SCH ×2 (09:27→20:09)
[2019-01-28] MEDS: MEROPENEM 1 GM/50 ML 1 GM in Premix Bag 1 BAG IVPB SCH ×2 (14:07→22:08)
--- NOTE | 2019-01-28 17:28 | PDOC.EVN ---
Event Note - Event Note Event Note: Patient seen and examined, same day followup. Much improved; off pressors, transferred out of ICU. Urine culture and blood culture pending. De-escalate antibiotics once additional data available. Diet/out of bed/supportive care. Family at bedside. Restart home flomax. Remainder of home meds reviewed.
--- NOTE | 2019-01-28 17:42 | CON ---
DATE OF CONSULTATION: 01/28/2019 HISTORY OF PRESENT ILLNESS: Mr. Lopez is a pleasant 73-year-old. He says he has no history of frequent urinary tract infections, but he is on tamsulosin for prostate issues. He is followed by Dr. Jansen. He presented early in the morning after sliding out of bed and being unable to get up. He said prior to getting out of bed, he was having shaking chills as well. In the emergency room, he was tachycardic and hypotensive. He subsequently was hydrated. PAST MEDICAL HISTORY: 1. Remarkable for atrial fibrillation, on Eliquis. 2. History of BPH. 3. History of ulcer disease. 4. Status post hospitalization in December of 2017 with gastric ulcer and Helicobacter gastritis. He had syncope associated with that admission. 5. History of obesity. 6. History of DJD. 7. History of colon polyp and diverticulosis. 8. History of internal hemorrhoids. SOCIAL HISTORY: He drinks occasionally. He is a former smoker. ALLERGIES: HE HAS NO DRUG ALLERGIES. MEDICATIONS: Have been reviewed. FAMILY HISTORY: Negative for lung disease in early age. REVIEW OF SYSTEMS: Ten-point is otherwise negative. PHYSICAL EXAMINATION: GENERAL: Actually said he felt fine when I saw him this morning. VITAL SIGNS: He was on 2 mcg of Levophed. Blood pressure is 130 systolic. Blood pressure currently is 126/76. He is off Levophed. Heart rate is 82. He is afebrile. Respiratory rate is 18. Room air oximetry is 95. Intake and output were -80 when recorded this morning. Urine culture is pending. HEAD AND NECK: Unremarkable. LUNGS: Clear. HEART: Regular rhythm. S1 and S2 are normal. ABDOMEN: Soft and nontender. EXTREMITIES: Without clubbing, cyanosis, or edema. NEURO: Grossly nonfocal. LABORATORY DATA: White count 14, hemoglobin 11.6, and platelets 98,000. Sodium 134, potassium 3.4, chloride 103, bicarb 23, BUN 20, and creatinine 1.2. Urinalysis showed greater than 50 white cells per high-powered field. IMPRESSION AND PLAN: Hypotension with fever, shaking, chills, and tachycardia likely secondary to his urinary tract. It is unclear whether or not he has a history of urinary retention. He is not aware that he might benefit from Urology, who had input in the near future. His thrombocytopenia is new in reviewing lab from June of this year. It is not a clinical issue at this point in time. He also is mildly anemic, but was aggressively hydrated in the emergency department most likely accounting for his drop in his hemoglobin. I agree with antimicrobial therapy. He can be transferred out of the critical care unit if he remains stable throughout the day. This is a 70 minute consult, with greater than 50% of time spent on unit coordinating care. Job ID: [id number] MTDD
[2019-01-28] MEDS: Famotidine 20 MG TAB PO SCH (20:09)
[2019-01-29] MEDS: MEROPENEM 1 GM/50 ML 1 GM in Premix Bag 1 BAG IVPB SCH ×3 (05:13→21:31)
[2019-01-29 05:55] LABS: #Lymphocytes 0.9 thou/uL (1.20-3.40); #Monocytes 0.7 thou/uL (0.11-0.59); #Neutrophils 3.3 thou/uL (1.40-6.50); %Basophils 0.1 % (0.0-1.0); %Eosinophils 0.1 % (0.0-10.0); %Lymphocytes 17.7 % (21.0-51.0); %Monocytes 14.7 % (0.0-10.0); %Neutrophils 67.4 % (42.0-75.0); Mean Corpuscular HGB CONC 33.9 g/dL (32.0-36.0); Mean Corpuscular Hemoglobin 30.7 pg (27.0-31.0); Mean Corpuscular Volume 90.6 fL (78.0-98.0); Mean Platelet Volume 8.9 fL (7.4-10.4); Platelet Count 101 thou/uL (130-400); RBC Distribution Width 14.7 % (11.5-14.5); Red Blood Cell (RBC) Count 3.57 mill/uL (4.70-6.10); White Blood Cell (WBC) Count 4.9 thou/uL (4.8-10.8)
[2019-01-29 06:15] LABS: Anion Gap 10 mmol/L (10-20); BUN (Urea Nitrogen) 15 mg/dL (8.4-25.7); Calc. Creatinine Clearance 133 mL/min (70-130); Calcium 7.8 mg/dL (7.8-10.44); Carbon Dioxide 24 mmol/L (23-31); Chloride 106 mmol/L (98-107); Estimated GFR-MDRD 88; Glucose 90 mg/dL (83-110); Potassium 3.6 mmol/L (3.5-5.1); Sodium 136 mmol/L (136-145)
[2019-01-29] MEDS: Famotidine 20 MG TAB PO SCH ×2 (08:12→20:08)
[2019-01-29] MEDS: Multivit, Therapeutic 1 TAB PO SCH (08:12)
[2019-01-29] MEDS: Apixaban 5 MG TAB PO SCH (08:12)
[2019-01-29] MEDS ORDERED: Tamsulosin HCl 0.4 MG CAP PO SCH ×2 (09:00→21:00)
--- NOTE | 2019-01-29 10:31 | PRG ---
DATE OF SERVICE: 01/29/2019 SUBJECTIVE: The patient is seen and examined at the bedside. He feels significantly better. He was moved out from intensive care unit to the medical floor. OBJECTIVE: VITAL SIGNS: Blood pressure is 113/73, pulse 76, temperature is 97.9, maximal temperature is 98.8 for the last 24 hours, respiratory rate is 16, and O2 saturation is 97% on room air. He is obese. His BMI is 39.0, which gives him 271 pounds. HEENT: His head is atraumatic and normocephalic. Eyes; PERRLA. Sclerae are nonicteric. Oral mucosa is moist. NECK: Supple. LUNGS: Clear. HEART: S1 and S2, somewhat irregular. No S3. No S4. ABDOMEN: Obese and nontender. Bowel sounds are present. No organomegaly. EXTREMITIES: No clubbing, cyanosis, or edema. NEUROLOGIC: He follows my commands. He moves his all 4 extremities. There are no any motor or sensory deficits. I noticed that he is quite immobile, just sitting up in the bed is a problem for this patient. LABORATORY DATA: White count of 4.9, hemoglobin 11.0, hematocrit 32.3, platelet count is 101. No bands. Normal chemistry. His liver function test was not done this morning, but yesterday it was elevated with total bilirubin of 3.4, AST 119 and ALT of 70 with normal alkaline phosphatase. Two troponins came back positive at 0.182 and 0.205. Microbiology, two blood cultures came back so far negative. Influenza type A and B, direct EIA negative. IMPRESSION: 1. Septic shock secondary most likely to urinary tract infection. The patient was in intensive care unit. He received fluid resuscitation and vasopressors. His blood pressure improved, and he was transferred to the medical floor. He is on broad-spectrum antibiotics. Blood cultures are negative. I do not see any urine culture results back. 2. Acute urinary tract infection. We will do a postvoiding ultrasound on his bladder. Also, we will do ultrasound of the abdomen to include his biliary tree and liver along with kidneys to rule out any obstruction. If there is some obstruction, we will ask urologist to be involved in this case. 3. Elevated bilirubin, AST and ALT of unclear etiology at this point. We will obtain additional testing with ultrasound testing, and we will follow those levels. We will get hepatitis panel. 4. History of atrial fibrillation, currently in sinus rhythm on Eliquis. 5. History of bleeding ulcer in the past. 6. History of benign prostatic hypertrophy. PLAN: As I mentioned above, we will do postvoiding urine residuals. We will do abdominal ultrasound. Continue his broad-spectrum antibiotics. We will check on urine culture if it was done. If there is some urinary tract obstruction different than enlarged prostate, we will get neurologist involved and I am going to increase his Flomax to twice a day dosing and start him on finasteride 5 mg once a day. Job ID: [id number]
--- NOTE | 2019-01-29 12:20 | ULT ---
ULTRASOUND ABDOMEN: Date: 01/29/19 HISTORY: Urosepsis. FINDINGS: The liver demonstrates homogeneous echotexture without focal mass or intrahepatic ductal dilatation. The spleen is enlarged measuring 13.8 cm. The gallbladder is contracted with prominent gallbladder wa ll measuring 3 mm in thickness. The common duct measures 4 mm in diameter. The visualized portions of the pancreas, aorta, and IVC are unremarkable. No hydronephrosis seen on either side. There is a 5.5 cm cyst arising from the right kidney. The urinary bladder is unremarkable. No free fluid is seen. IMPRESSION: 1. Splenomegaly. 2. Right renal cyst. 3. Contracted gallbladder. Gallbladder ultrasound should be repeated after adequate fasting. POS: OFF
--- NOTE | 2019-01-29 14:44 | PRG ---
DATE OF SERVICE: 01/29/2019 SUBJECTIVE: Henok Lopez is doing well. He has no complaints. Still no urine culture reported, although I was told by the lab that there was a urine culture that is pending. OBJECTIVE: VITAL SIGNS: Stable. LUNGS: Clear. HEART: Regular rhythm. ABDOMEN: Soft and nontender. . IMPRESSION: Status post presentation with sepsis. He was tamsulosin prior to his admission . Abdominal ultrasound shows enlarged spleen. stable. Workup . The large spleen probably explains the borderline thrombocytopenia. Prostatitis is likely the cause of clinical presentation. We will probably follow from a distance . He can touch base with the urologist as an outpatient. Job ID: [id number]
[2019-01-29] MEDS: Enoxaparin Sodium 120 MG/0.8 ML SYRINGE SC SCH (20:08)
[2019-01-29] MEDS ORDERED: Atorvastatin Calcium 40 MG TAB PO SCH (21:00)
--- NOTE | 2019-01-29 22:53 | CON ---
DATE OF CONSULTATION: HISTORY OF PRESENT ILLNESS: Henok Lopez is a 73-year-old male , who was first evaluated by Dr. Ferreira in December 2017. He presented with GI bleed and was found to have a bleeding ulcer, which was cauterized. He developed atrial fibrillation with fast ventricular response and was placed on IV Cardizem. The atrial fibrillation lasted for approximately 12 hours and then spontaneously converted to sinus rhythm. He was on low-dose beta silvano and sent home on a monitor. He had no further atrial fibrillation, but did have an episode of nonsustained ventricular tachycardia and episodes of paroxysmal atrial tachycardia. He was asymptomatic with both of those. With the nonsustained ventricular tachycardia, he was unable to walk on treadmill and he underwent a PET scan. This was on February 08, 2018. This was abnormal with evidence of mild ischemia along the inferior wall. Discussion was held with the patient and it was felt best to treat him medically and a statin was started. Ultimately, he was placed on Eliquis once it was deemed safe from a GI bleed standpoint. He now was admitted on January 28, 2019, with weakness at home, sliding off his bed, not being able to get up. He had fever, chills, and rigors. He was tachycardic and hypotensive in the emergency room and was given intravenous fluids. He has been found to have urinary tract infection and was placed on vasopressors as well as given intravenous fluids. Ultimately, vasopressors were tapered and discontinued. He had abnormal troponin I and was transferred from the ICU to medical floor. Mr. Lopez denies any palpitations. He denies any chest discomfort or shortness of breath. PAST MEDICAL HISTORY: Lone episode of atrial fibrillation in December 2017, when he had a GI bleed; history of bleeding ulcer; and benign prostatic hypertrophy. MEDICATIONS: 1. Amoxicillin 1000 mg q.12 hours. 2. Biaxin 500 q.12. 3. Metoprolol 25 daily. 4. Atorvastatin 40 daily. 5. Eliquis 5 b.i.d. 6. Flomax 0.4 daily. ALLERGIES: NONE. SOCIAL HISTORY: He is a former smoker. He occasionally drinks. FAMILY HISTORY: Unremarkable. REVIEW OF SYSTEMS: A 12-point review of systems is unremarkable. PHYSICAL EXAMINATION: VITAL SIGNS: Blood pressure of 113/73 and pulse of 76. HEENT: PERRL. NECK: Supple. CHEST: Clear. CARDIAC: S1 and S2 normal without any S3, S4, or murmurs. ABDOMEN: Obese. Normal bowel sounds. No tenderness. EXTREMITIES: Revealed 1+ pretibial edema with chronic stasis changes. NEUROLOGIC: Grossly intact. SKIN: Warm and dry. LABORATORY DATA: EKG revealed sinus tachycardia with rate of 110 per minute. While in intensive care unit, he continued to remain in normal sinus rhythm. Hemoglobin 11.0, hematocrit 32.3, white count 4900, and platelets 101,000. Sodium 136, potassium 3.6, chloride 106, carbon dioxide 24, BUN 15, creatinine 0.85, ALT 119 , AST 70, troponin I is up to 0.214. Lactic acid 5.2, down to 1.4. Culture has grown presumptive Proteus mirabilis. IMPRESSION: 1. Urinary tract infection with probably Proteus mirabilis. 2. Lone episode of atrial fibrillation in December 2017, during the episode of gastrointestinal bleeding from an ulcer. 3. Chronic anticoagulation. 4. Nonsustained ventricular tachycardia seen on monitor. 5. Abnormal cardiac PET scan with finding of mild ischemia of the inferior wall in January 2018. 6. Hypercholesterolemia. 7. Elevated liver function test, probably due to sepsis. 8. Benign prostatic hypertrophy. 9. Venous insufficiency. 10. [id number] elevation myocardial infarction, probably type 2. RECOMMENDATIONS: With history of atrial fibrillation, nonsustained ventricular tachycardia, and uncertainty regarding non-STEMI, I do feel he should be moved to telemetry. Historically, he did not appear to have any significant cardiac symptoms; however, he does have an abnormal cardiac PET scan. Consideration may need to be given to cardiac catheterization and for that reason, I would discontinue the Eliquis and instead place him on Lovenox. He also has elevated liver function test, and I will not restart the atorvastatin 40 daily that he was previously taking at this time. Fasting lipid profile will be obtained in the morning. Dr. Ferreira will see the patient tomorrow. Job ID: [id number] [facility]
[2019-01-30] MEDS: MEROPENEM 1 GM/50 ML 1 GM in Premix Bag 1 BAG IVPB SCH ×3 (05:08→21:57)
[2019-01-30 05:15] VITALS: BMI 43.3
[2019-01-30 05:48] LABS: Vancomycin, Trough 8.3 ug/mL
[2019-01-30 05:54] LABS: ALT (SGPT) 97 U/L (8-55); AST (SGOT) 115 U/L (5-34); Albumin 2.9 g/dL (3.4-4.8); Alkaline Phosphatase 150 U/L (40-150); Anion Gap 9 mmol/L (10-20); BUN (Urea Nitrogen) 15 mg/dL (8.4-25.7); Bilirubin, Total 1.1 mg/dL (0.2-1.2); Calc. Creatinine Clearance 150 mL/min (70-130); Calcium 8.3 mg/dL (7.8-10.44); Carbon Dioxide 27 mmol/L (23-31); Cardiac Risk 7.5 (Less than 4.5); Chloride 106 mmol/L (98-107); Cholesterol 75 mg/dl (< 200 Desired); Estimated GFR-MDRD 89; Globulin 3.7 g/dL (2.4-3.5); Glucose 105 mg/dL (83-110); HDL Cholesterol 10 mg/dL (>60 Neg Risk); LDL Cholesterol, Calculated 39 mg/dL; Potassium 3.4 mmol/L (3.5-5.1); Protein, Total 6.6 g/dL (5.8-8.1); Sodium 139 mmol/L (136-145); Triglycerides 132 mg/dL (Less than 150)
[2019-01-30] MEDS: Vancomycin HCl 1.5 GM in Sodium Chloride 0.9% 250 ML 300 ML IVPB SCH ×2 (06:22→17:36)
[2019-01-30] MEDS ORDERED: Diltiazem HCl 125 MG, Admixture Fee 1 EACH in Sodium Chloride 0.9% 100 ML IVPB SCH (07:15)
[2019-01-30] MEDS ORDERED: Digoxin 0.5 MG/2 ML AMP SLOW IVP SCH (08:15)
[2019-01-30] MEDS ORDERED: Sodium Chloride 0.9% 500 ML IVPB SCH (08:15)
[2019-01-30] MEDS: Enoxaparin Sodium 120 MG/0.8 ML SYRINGE SC SCH (08:22)
[2019-01-30] MEDS: Multivit, Therapeutic 1 TAB PO SCH (08:23)
[2019-01-30] MEDS: Tamsulosin HCl 0.4 MG CAP PO SCH (08:23)
[2019-01-30] MEDS: Finasteride 5 MG TAB PO SCH (08:23)
[2019-01-30] MEDS: Famotidine 20 MG TAB PO SCH ×2 (08:23→20:09)
--- NOTE | 2019-01-30 10:05 | PDOC.CPN ---
- Subjective Date: 01/30/19 Time: 12:45 Interval history: Doing weel from a symptoms standpoint. Pt developed afib with RVR but now SR. No previous complaints of CP, sob noted in the past prior to recent hospitalization for sepsis - Objective Allergies/Adverse Reactions: Allergies Allergy/AdvReac Type Severity Reaction Status Date / Time No Known Allergies Allergy Verified 01/28/19 10:41 Visit Medications: Current Medications Acetaminophen (Tylenol) 650 mg MD Q4H PRN PRN Reason: Headache/Fever/Mild Pain (1-3) Digoxin (Lanoxin) 0.25 mg SLOW IVP NOW [facility] Stop: 01/30/19 10:00 Last Admin: 01/30/19 08:17 Dose: 0.25 mg Enoxaparin Sodium (Lovenox) 120 mg SC 0900,2100 [facility] Last Admin: 01/30/19 08:22 Dose: 120 mg Famotidine (Pepcid) 20 mg PO BID [facility] Last Admin: 01/30/19 08:23 Dose: 20 mg Finasteride (Proscar) 5 mg PO DAILY [facility] Last Admin: 01/30/19 08:23 Dose: 5 mg Meropenem 1 gm/ Device 50 mls @ 100 mls/hr IVPB Q8HR [facility] Last Admin: 01/30/19 05:08 Dose: 50 mls Vancomycin HCl 1.5 gm/ Sodium (Chloride) 300 mls @ 200 mls/hr IVPB 0600,1800 [facility] Last Admin: 01/30/19 06:22 Dose: 300 mls Diltiazem HCl 125 mg/Miscellaneous Medication 1 each/ Sodium Chloride 125 mls @ 5 mls/hr IVPB INF [facility]; Protocol Last Admin: 01/30/19 07:52 Dose: 125 mls Sodium Chloride (Normal Saline 0.9%) 500 mls @ 500 mls/hr IVPB NOW [facility] Stop: 01/30/19 10:00 Last Admin: 01/30/19 08:19 Dose: 500 mls Miscellaneous Medication (Pharmacy To Dose) 1 each IVPB PRN PRN PRN Reason: sepsis Multivitamins (Theragran) 1 tab PO DAILY [facility] Last Admin: 01/30/19 08:23 Dose: 1 tab Pantoprazole Sodium (Protonix) 40 mg PO BID [facility] Last Admin: 01/30/19 08:23 Dose: 40 mg Tamsulosin HCl (Flomax) 0.4 mg PO DAILY [facility] Last Admin: 01/30/19 08:23 Dose: 0.4 mg Vital Signs & Weight: Vital Signs Temp Pulse Resp BP Pulse Ox 01/30/19 08:17 141 H 01/30/19 03:41 97.4 F L 65 18 122/66 94 L Admit Weight 271 lb 9.752 oz Weight 302 lb 3.2 oz - Physical Exam HEENT: mucus membranes moist Neck: supple neck Cardiac: regular rate, regular rhythm Lungs: clear to auscultation Neuro: grossly intact Abdomen: active bowel sounds Musculoskeletal: normal range of motion - Labs Result Diagrams: 01/29/19 05:30 01/30/19 04:30 Troponin/CKMB CK-MB (CK-2) 4.9 ng/mL (0-6.6) 01/28/19 01:29 Troponin I 0.205 ng/mL (< 0.028) H 01/28/19 07:31 - Problem (1) Abnormal stress test Assessment and Plan: No current symptoms. 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 (2) Atrial fibrillation with RVR Code(s): I48.91 - UNSPECIFIED ATRIAL FIBRILLATION Assessment and Plan: Contiue NOAC Add BB Defer angio
[2019-01-30] MEDS ORDERED: Sodium Chloride 0.9% 500 ML IV SCH (10:15)
[2019-01-30] MEDS ORDERED: Potassium Chloride 20 MEQ TAB PO SCH (11:15)
--- NOTE | 2019-01-30 15:27 | PRG ---
DATE OF SERVICE: 01/30/2019 SUBJECTIVE: The patient is seen and examined at the bedside. He was moved to telemetry floor yesterday and this morning, he went into atrial fibrillation with RVR with hypotension. He was given digoxin and started on Cardizem drip. OBJECTIVE: VITAL SIGNS: Blood pressure is 102/72, pulse is 120, respirations 18, O2 saturation is 93% on room air, and temperature is 97.7. HEENT: Head is atraumatic and normocephalic. Eyes are PERRLA. Sclerae are nonicteric. Oral mucosa is moist. NECK: Supple. LUNGS: Clear. HEART: S1 and S2 irregularly irregular. No S3. No S4. Tachycardic. ABDOMEN: Obese and nontender. EXTREMITIES: No clubbing, cyanosis, or edema. NEUROLOGIC: He follows my commands. He moves all 4 extremities. There are no any motor or sensory deficits. LABORATORY DATA: Labs showed sodium of 139, potassium 3.4, chloride 106, CO2 of 27, BUN 15, creatinine 0.84. Total bilirubin 1.1, AST down to 115, and ALT 97, alkaline phosphatase 150, albumin 2.9, globulin 3.7. The rest of chemistry is within normal limits. Microbiology, urine culture is growing 25,000 to 50,000 mixed skin and enteric js. Two blood cultures are negative. IMPRESSION: 1. Septic shock. Urinary tract infection is still suspected to be the source although the urine culture came back negative, but prostatitis is possible diagnosis. The patient improved quickly. He does not require any vasopressors or fluid resuscitation at this point. We will get Urology consultation, although his postvoiding residuals were very small. Septic shock of unclear etiology. It was thought that urinary tract infection was the source, but urine culture is coming back negative. He received IV fluid resuscitation and vasopressors, improved quickly, so far etiology is unknown. Urology consultation was placed. Dr. Guerra is going to see him. 2. Acute urinary tract infection, although the cultures came back negative. Postvoiding ultrasound was negative and ultrasound of the liver did not show any abnormalities, although a repeated test is recommended since gallbladder was contracted. Also, there is a finding of splenomegaly. 3. Elevated bilirubin, AST, and ALT, felt to be related to sepsis. Ultrasound did not show any abnormalities except for splenomegaly and contracted bladder. 4. History of atrial fibrillation. 5. History of bleeding ulcer in the past. 6. History of benign prostatic hypertrophy. DISCUSSION: The patient did not have postvoiding residuals, possible option for his sepsis is still prostatitis and Urology is consulted. We will continue broad-spectrum antibiotics for today and we will try to trim down the regimen tomorrow if all cultures negative. He went to atrial fibrillation this morning with hypotension and started on digoxin and Cardizem drip. This seems to be under better control. Cardiology is following. His troponins were elevated, which is most likely non-STEMI, which is type 2 myocardial infarction, or that is related to his sepsis. Currently, he is on Eliquis 5 mg twice a day per Cardiology, on Cardizem drip, meropenem and vancomycin. After he is evaluated by urologist, we will make decision about the antibiotic treatment. Job ID: [id number]
[2019-01-30] MEDS: Apixaban 5 MG TAB PO SCH (20:10)
[2019-01-30] MEDS ORDERED: Metoprolol Tartrate 25 MG TAB PO SCH (21:00)
--- NOTE | 2019-01-31 02:39 | CON ---
DATE OF CONSULTATION: 01/30/2019 REASON FOR CONSULTATION: 1. Apparent urinary tract infection. 2. Benign appearing renal cyst. 3. Apparent prostate hyperplasia with obstructive voiding symptoms. 4. Phimosis. PROBLEM LIST: Acute cystitis without hematuria, N30.00 Urinary retention, R33.9 Prostate hyperplasia with urinary obstruction, N40.1, N13.8 Phimosis, N47.1 HISTORY OF PRESENT ILLNESS: Mr. Henok Lopez is a pleasant 73-year-old Ethiopian-speaking male, admitted on 01/28/2019 through the emergency department for apparent urosepsis. The patient reported a cough for 2 or 3 days prior to admission and also has been having obstructive voiding symptoms for about 18 months. He was placed on tamsulosin by his primary physician about 18 months ago. The patient reported increasing obstructive voiding symptoms over that time. He also has chronically elevated PSA with a PSA of about of 7. He was concerned on this admission that he might have prostate cancer. The patient underwent initial emergency room evaluation where his sepsis was apparent and had very unstable vital signs. He underwent resuscitation in the emergency department and later had an elevated white count that became apparent. The patient was almost immediately started on Zosyn and later meropenem, received appropriate intravenous antibiotics and had significant tachycardia during the period of admission. He is now on the telemetry floor for evaluation. Mr. 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 The patient has not seen a urologist previously. PAST MEDICAL HISTORY: 1. Atrial fibrillation, on Eliquis. 2. History of bladder outlet obstruction, presumably a benign prostatic hypertrophy. 3. Bleeding ulcer history. 4. Chronically elevated PSA. PAST SURGICAL HISTORY: Colon polyp status post colonoscopy and polyp biopsy, 07/21/2016. SOCIAL HISTORY: The patient does not smoke or drink. He is . 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 PHYSICAL EXAMINATION: VITAL SIGNS: Temperature is 98.7, pulse 76, respirations 20, O2 saturation on room air is 96%, blood pressure currently 135/76. A chart review shows the patient being reportedly febrile at home prior to admission and there are no recorded fevers during this admission on the electronic record. The patient had markedly abnormal pulse rate ranging from 151 to 181 during the hospitalization, did have lowering of his blood pressure to 87/55, suggestive of a sepsis event on 01/30/2019 at 7:55 in the morning. HEAD, EYES, EARS, NOSE, AND THROAT: Extraocular movements are intact. Sclerae are anicteric. Oropharynx is clear. NECK: Supple. CHEST/LUNGS: Clear to auscultation bilaterally. There are body morphology associated changes with the auscultation. CARDIAC: There is an irregularly irregular rhythm, not necessarily consistent with atrial fibrillation. There is more or less a regular rhythm by and large portion of the time. ABDOMEN: Soft and nontender. Percussion reveals increased resonance in the upper quadrants. GENITOURINARY: Phallus is uncircumcised and the foreskin cannot be retracted. There is a pinpoint foreskin meatus and possibly smaller opening inside. I was unable to retract the foreskin. Testes are present bilaterally in the scrotum and are benign, anodular, nontender. Palpation of inguinal canals finds no gross inguinal canal hernia. Digital rectal examination is limited once again by the patient's body morphology. Despite 9 cm fingers, I can only get to the apex portion of the patient's prostate gland which generally feels benign and noninfected. It is not overly enlarged. LABORATORY FINDINGS: The patient's white count was elevated to 14,000 on 01/28/2019. There was 29 band and neutrophils at that point. A urinalysis was obtained from patient's uncircumcised foreskin by void and this showed the presence of nitrite and white blood cells at a rate of greater than 50 with 11-20 red blood cells seen. There was 2+ bacteria present. As this was not a proper clean- catch specimen, this urinalysis is suspect as is the culture drawn by this method. A urine culture shows mixed skin and enteric js, which is compatible with the patient's uncircumcised state. Blood cultures remain negative at 48 hours. The patient's urine culture was obtained at 3:11 a.m. on 01/28/2019. Blood cultures were obtained in proximity to the patient's hospital admission at 1:29 a.m. and 1:36 a.m. The patient apparently received Zosyn at 0149 hours, which would have been prior to the patient's urine culture being collected. RADIOLOGIC STUDIES: I reviewed the patient's renal ultrasound study which was obtained on 01/29/2019 at 9:48 a.m., this shows the presence of a Bosniak class 1 right-sided renal cyst. The patient's bladder shows a single ureteral jet. There are no gross abnormalities observed in the patient's bladder itself. ASSESSMENT AND PLAN: 1. Apparent urosepsis episode with the patient complaining of high-level obstructive voiding symptoms for about 6 months and having had some degree of obstructive voiding symptoms for about a year and a half. The patient has phimosis and we were not able to retract his foreskin. His cultures that were obtained are not obtained in a method which would allow us to identify whether he actually had a urinary tract infection as they were taken from an uncircumcised foreskin of patient and also antibiotics were administered prior to obtaining a culture. At the present time , empiric antibiotic therapy seems appropriate as the patient has responded to that. 2. Longer-term considerations. The patient probably will need to undergo circumcision based on the findings today. The patient can be scheduled in my office to be evaluated for that. 3. Voiding history. The patient should undergo ambulatory urodynamics at least in my office and we will determine whether there is an obstructive component present. For the present time, continuing the patient's tamsulosin at 0.4 mg p.o. daily and starting finasteride as has been done at 5 mg per day appears appropriate. 4. Morbid obesity. Dieting is recommended for this patient. 5. Renal cyst, Bosniak class 1. No further imaging studies required. TIME SPENT: Over 70 minutes of initial evaluation and assessment time was spent in the care of this patient, over of which was in face to face evaluation, or in coordination of care, or in communication with the patient's family regarding care, exclusive of any procedures performed, [id number]. Job ID: [id number] [facility]
[2019-01-31] MEDS: Vancomycin HCl 1.5 GM in Sodium Chloride 0.9% 250 ML 300 ML IVPB SCH (05:45)
[2019-01-31] MEDS: MEROPENEM 1 GM/50 ML 1 GM in Premix Bag 1 BAG IVPB SCH ×2 (05:46→14:20)
--- NOTE | 2019-01-31 06:54 | PDOC.CPN ---
- Subjective Date: 01/31/19 Time: 07:46 Interval history: doing well Maintaining SR No complaints - Objective Allergies/Adverse Reactions: Allergies Allergy/AdvReac Type Severity Reaction Status Date / Time No Known Allergies Allergy Verified 01/28/19 10:41 Visit Medications: Current Medications Acetaminophen (Tylenol) 650 mg [place] Q4H PRN PRN Reason: Headache/Fever/Mild Pain (1-3) Apixaban (Eliquis) 5 mg PO BID [facility] Last Admin: 01/30/19 20:10 Dose: 5 mg Famotidine (Pepcid) 20 mg PO BID [facility] Last Admin: 01/30/19 20:09 Dose: 20 mg Finasteride (Proscar) 5 mg PO DAILY [facility] Last Admin: 01/30/19 08:23 Dose: 5 mg Meropenem 1 gm/ Device 50 mls @ 100 mls/hr IVPB Q8HR [facility] Last Admin: 01/31/19 05:46 Dose: 50 mls Vancomycin HCl 1.5 gm/ Sodium (Chloride) 300 mls @ 200 mls/hr IVPB 0600,1800 [facility] Last Admin: 01/31/19 05:45 Dose: 300 mls Metoprolol Tartrate (Lopressor) 25 mg PO BID [facility] Last Admin: 01/30/19 20:09 Dose: 25 mg Miscellaneous Medication (Pharmacy To Dose) 1 each IVPB PRN PRN PRN Reason: sepsis Multivitamins (Theragran) 1 tab PO DAILY [facility] Last Admin: 01/30/19 08:23 Dose: 1 tab Pantoprazole Sodium (Protonix) 40 mg PO BID [facility] Last Admin: 01/30/19 20:11 Dose: 40 mg Tamsulosin HCl (Flomax) 0.4 mg PO DAILY [facility] Last Admin: 01/30/19 08:23 Dose: 0.4 mg Vital Signs & Weight: Vital Signs Temp Pulse Resp BP Pulse Ox 01/31/19 06:02 58 L 143/84 H 01/31/19 03:39 97.5 F L 57 L 18 167/81 H 96 01/30/19 23:24 98.4 F 54 L 18 122/60 96 01/30/19 19:48 98.7 F 76 20 135/76 96 Admit Weight 271 lb 9.752 oz Weight 302 lb 3.2 oz - CHADS-VASc Hypertension: 1 Age 65-74: 1 Risk Score: 2 - Quality Measures Condition: Atrial Fibrillation/Flutter (hx or current) CV meds: Beta Mckenna: Yes, Anticoagulant: Yes - Physical Exam General: alert & oriented x3 Neck: supple neck Cardiac: no murmur Lungs: normal exam Neuro: grossly intact Abdomen: unremarkable Skin: clear Musculoskeletal: no pain - Labs Result Diagrams: 01/29/19 05:30 01/30/19 04:30 Troponin/CKMB CK-MB (CK-2) 4.9 ng/mL (0-6.6) 01/28/19 01:29 Troponin I 0.205 ng/mL (< 0.028) H 01/28/19 07:31 - Problem (1) Atrial fibrillation with RVR Code(s): I48.91 - UNSPECIFIED ATRIAL FIBRILLATION Assessment and Plan: Continue BB Decrease to toprol 25mg 1.5 tabs qpm NOAC No other recommendations fu in office in 1-2 weeks Reconsult if questions arise (2) Abnormal stress test Assessment and Plan: See last note
[2019-01-31 06:59] LABS: Hep C IgG Ab Non-Reactive (NonReactive); Hep C Index 0.18 S/CO (0-0.79)
[2019-01-31] MEDS: Tamsulosin HCl 0.4 MG CAP PO SCH (08:53)
[2019-01-31] MEDS: Finasteride 5 MG TAB PO SCH (08:53)
[2019-01-31] MEDS: Multivit, Therapeutic 1 TAB PO SCH (08:54)
[2019-01-31] MEDS: Apixaban 5 MG TAB PO SCH ×2 (08:54→20:17)
[2019-01-31] MEDS: Famotidine 20 MG TAB PO SCH ×2 (08:55→20:17)
[2019-01-31 09:57] LABS: #Eosinphils 0.1 thou/uL (0.0-0.7); #Lymphocytes 1.4 thou/uL (1.20-3.40); #Monocytes 0.3 thou/uL (0.11-0.59); #Neutrophils 4.4 thou/uL (1.40-6.50); %Lymphocytes 22.5 % (21.0-51.0); %Monocytes 5.3 % (0.0-10.0); %Neutrophils 70.3 % (42.0-75.0); Hemoglobin 11.7 g/dL (14.0-18.0); Mean Corpuscular HGB CONC 33.4 g/dL (32.0-36.0); Mean Corpuscular Hemoglobin 30.6 pg (27.0-31.0); Mean Corpuscular Volume 91.7 fL (78.0-98.0); Mean Platelet Volume 8.4 fL (7.4-10.4); Platelet Count 153 thou/uL (130-400); RBC Distribution Width 14.8 % (11.5-14.5); Red Blood Cell (RBC) Count 3.82 mill/uL (4.70-6.10); White Blood Cell (WBC) Count 6.3 thou/uL (4.8-10.8)
[2019-01-31 10:16] LABS: Anion Gap 9 mmol/L (10-20); BUN (Urea Nitrogen) 12 mg/dL (8.4-25.7); Calc. Creatinine Clearance 138 mL/min (70-130); Calcium 8.8 mg/dL (7.8-10.44); Carbon Dioxide 28 mmol/L (23-31); Chloride 106 mmol/L (98-107); Estimated GFR-MDRD 81; Glucose 91 mg/dL (83-110); Potassium 3.7 mmol/L (3.5-5.1); Sodium 139 mmol/L (136-145)
--- NOTE | 2019-01-31 12:53 | PRG ---
DATE OF SERVICE: 01/31/2019 SUBJECTIVE: The patient is seen and examined at the bedside. He converted to normal sinus rhythm. He is feeling somewhat better. OBJECTIVE: VITAL SIGNS: Blood pressure is 138/78, pulse is 68, respiratory rate is 17, temperature is 97.3, O2 saturation is 95% on room air. HEENT: His head is atraumatic and normocephalic. Eyes, PERRLA. Sclerae are nonicteric. Oral mucosa is moist. NECK: Supple. LUNGS: Right lower lobe area with rales and crackles. HEART: S1 and S2, normal. No S3. No S4. ABDOMEN: Obese, nontender, nondistended. EXTREMITIES: 1+ peripheral edema similar bilaterally. NEUROLOGIC: He is alert and oriented x4. There are no any motor or sensory deficits. LABORATORY DATA: Showed white count of 6.3, hemoglobin of 11.7, hematocrit 35.1, platelet count is 153,000. His electrolytes are within normal limits. BUN of 12, creatinine 0.91. Hepatitis C antibody nonreactive. Microbiology, no new findings. Negative urine culture and negative 2 blood cultures. ASSESSMENT: 1. Sepsis, most likely related to his urinary tract infection. Appreciate input from Urology. Dr. Guerra saw the patient and he recommends for continuation of antibiotic coverage with followup in his office to fix the patient's phimosis. I am going to stop his vancomycin. We will continue meropenem. 2. Acute urinary tract infection. 3. Splenomegaly of unclear etiology. At this point, this will need to be followed up on outpatient basis. 4. Elevated bilirubin, elevated AST and ALT, felt to be related to sepsis. 5. History of atrial fibrillation, currently in sinus rhythm, on beta silvano. 6. History of bleeding ulcer in the past. 7. History of benign prostatic hypertrophy, on Proscar and finasteride. 8. Phimosis. 9. Possible type 2 myocardial infarction. PLAN: To discontinue vancomycin. Continue meropenem. Continue beta-silvano. Continue Eliquis. He will be monitored for the next 48 hours and we might consider sending him home in the next probably 2 to 3 days if he is doing well and his atrial fibrillation is not recurrent. Job ID: [id number]
[2019-01-31 17:24] LABS: Vancomycin, Trough 20.4 ug/mL
[2019-02-01] MEDS: MEROPENEM 1 GM/50 ML 1 GM in Premix Bag 1 BAG IVPB SCH ×4 (00:09→23:02)
[2019-02-01] MEDS: Multivit, Therapeutic 1 TAB PO SCH (08:49)
[2019-02-01] MEDS: Tamsulosin HCl 0.4 MG CAP PO SCH (08:49)
[2019-02-01] MEDS: Apixaban 5 MG TAB PO SCH ×2 (08:49→23:01)
[2019-02-01] MEDS: Famotidine 20 MG TAB PO SCH ×2 (08:50→23:01)
[2019-02-01] MEDS: Finasteride 5 MG TAB PO SCH (08:50)
[2019-02-01 11:01] LABS: #Eosinphils 0.1 thou/uL (0.0-0.7); #Lymphocytes 1.1 thou/uL (1.20-3.40); #Monocytes 0.3 thou/uL (0.11-0.59); #Neutrophils 3.9 thou/uL (1.40-6.50); %Basophils 0.3 % (0.0-1.0); %Lymphocytes 20.7 % (21.0-51.0); %Monocytes 5.9 % (0.0-10.0); %Neutrophils 71.2 % (42.0-75.0); Hemoglobin 11.7 g/dL (14.0-18.0); Mean Corpuscular HGB CONC 32.9 g/dL (32.0-36.0); Mean Corpuscular Hemoglobin 30.4 pg (27.0-31.0); Mean Corpuscular Volume 92.3 fL (78.0-98.0); Mean Platelet Volume 7.9 fL (7.4-10.4); Platelet Count 165 thou/uL (130-400); RBC Distribution Width 14.9 % (11.5-14.5); Red Blood Cell (RBC) Count 3.86 mill/uL (4.70-6.10); White Blood Cell (WBC) Count 5.5 thou/uL (4.8-10.8)
[2019-02-01 11:41] LABS: ALT (SGPT) 93 U/L (8-55); AST (SGOT) 99 U/L (5-34); Alkaline Phosphatase 142 U/L (40-150); Anion Gap 11 mmol/L (10-20); BUN (Urea Nitrogen) 13 mg/dL (8.4-25.7); Bilirubin, Total 0.8 mg/dL (0.2-1.2); Calc. Creatinine Clearance 151 mL/min (70-130); Calcium 8.7 mg/dL (7.8-10.44); Carbon Dioxide 28 mmol/L (23-31); Chloride 106 mmol/L (98-107); Estimated GFR-MDRD Greater than 90; Globulin 4.3 g/dL (2.4-3.5); Glucose 98 mg/dL (83-110); Protein, Total 7.3 g/dL (5.8-8.1); Sodium 141 mmol/L (136-145)
--- NOTE | 2019-02-01 12:19 | EKG ---
Test Reason : Blood Pressure : / mmHG Vent. Rate : 110 BPM Atrial Rate : 110 BPM P-R Int : 144 ms QRS Dur : 086 ms QT Int : 322 ms P-R-T Axes : 021 -08 004 degrees QTc Int : 435 ms Sinus tachycardia Low voltage QRS Inferior infarct , age undetermined Abnormal ECG Confirmed by RAMONA VALLEJO M.D. ([id number]), purchase request editor TATIANA DELEON ([id number]) on 02/01/2019 12:19:07 PM Referred By: Confirmed By:RAMONA VALLEJO M.D.
--- NOTE | 2019-02-01 16:27 | PRG ---
DATE OF SERVICE: 02/01/2019 SUBJECTIVE: The patient is seen and examined at bedside. He is feeling gradually better. His appetite is fair. He does some PT. OBJECTIVE: VITAL SIGNS: Blood pressure is 135/78, pulse is 69, temperature is 97.7, respiratory rate is 18, O2 saturation is 96% on room air. HEENT: His head is atraumatic and normocephalic. Eyes are PERRLA. Sclerae are nonicteric. Oral mucosa is moist. NECK: Supple. LUNGS: Breath sounds diminished at both bases. HEART: S1 and S2 normal. ABDOMEN: Obese, soft, nontender. EXTREMITIES: No clubbing or cyanosis. 1+ peripheral edema similar bilaterally. NEUROLOGICAL: He follows my commands. He moves his all 4 extremities. There are no any motor deficits. LABORATORY DATA: Labs showed white count of 5.5, hemoglobin 11.7, hematocrit 35.7, platelet count 165,000. Normal electrolytes. AST of 99, ALT 93. IMAGING STUDIES: Echocardiogram showed technically difficult study with poor endocardial definition. Ejection fraction is estimated over 45% to 50%. IMPRESSION: 1. Sepsis, most likely related to urinary tract infection. We will continue meropenem today. Most likely, he will be able to go home tomorrow and follow up with Dr. Guerra for his phimosis. 2. Urinary tract infection. 3. Splenomegaly, most likely related to sepsis. This needs to be evaluated later when the infection is not affecting his internal organs. 4. Elevated bilirubin. His AST and ALT again needs to be repeated later when he does follow up with the primary doctor in a week or so. 5. History of atrial fibrillation, currently in sinus rhythm on beta-silvano. 6. History of bleeding ulcer in the past. 7. History of benign prostatic hypertrophy on Proscar and finasteride. 8. Phimosis. 9. Possible type 2 myocardial infarction. PLAN: As mentioned above, continue his beta-silvano, Eliquis. Continue PT. Continue meropenem. If he does well, he will be discharged tomorrow on oral antibiotic. Job ID: [id number]
[2019-02-02] MEDS: MEROPENEM 1 GM/50 ML 1 GM in Premix Bag 1 BAG IVPB SCH ×2 (06:00→14:59)
[2019-02-02] MEDS: Multivit, Therapeutic 1 TAB PO SCH (08:52)
[2019-02-02] MEDS: Finasteride 5 MG TAB PO SCH (08:55)
[2019-02-02] MEDS: Tamsulosin HCl 0.4 MG CAP PO SCH (08:55)
[2019-02-02] MEDS: Famotidine 20 MG TAB PO SCH (08:55)
[2019-02-02] MEDS: Apixaban 5 MG TAB PO SCH (08:55)
[2019-02-02] MEDS ORDERED: Lisinopril 5 MG TAB PO SCH (11:15)
[2019-02-02 16:43] VITALS: BP 136/75; TEMP 97.8
--- NOTE | 2019-02-02 22:01 | DIS ---
DATE OF ADMISSION: 01/28/2019 DATE OF DISCHARGE: 02/02/2019 DIAGNOSES AT THE TIME OF DISCHARGE: 1. Severe sepsis with hypotension secondary to urinary tract infection. 2. Urinary tract infection. 3. Splenomegaly, most likely related to sepsis. 4. Elevated bilirubin, AST, and ALT, again related to sepsis. 5. History of atrial fibrillation, currently in sinus rhythm. 6. Cardiomyopathy with LVEF estimated at 45% to 50%. 7. History of bleeding ulcer in the past. 8. History of benign prostatic hypertrophy. 9. Phimosis. 10. Type 2 myocardial infarction. CONSULTANTS: 1. Dr. Riki Panotja, Pulmonary/Critical Care. 2. Dr. Jerry Eldridge, Cardiology Service. 3. Dr. Carrington Ferreira, Cardiology Service. 4. Dr. Hernan Guerra, Urology Service. HOSPITAL COURSE: The patient is a 73-year-old male with past medical history of atrial fibrillation, on Eliquis, bleeding ulcer, benign prostatic hypertrophy, among others, who presents to the emergency room with weakness and status post fall. Apparently, after sliding off the bed and not being able to get up, he called EMS. He reported fever, chills, and shakiness. While in the emergency room, he was found to be febrile, tachycardic and hypotensive. He was found to have urinary tract infection. Blood pressure was running low 80s, systolic. Central venous catheter was placed by ED physician. The patient was given IV fluids and he required IV vasopressors subsequently. At the time of emergency room evaluation, his lab work showed white count of 6.3, hemoglobin 12.8, hematocrit 38.0, platelet count 97,000. Sodium 130, potassium 3.9, chloride 97, CO2 19, BUN 23, creatinine 1.32, glucose 111, lactic acid 5.2, total bilirubin 2.7, AST 115, ALT 66, troponin I 0.182. Albumin 3.3, globulin 4.1. Urinalysis showed more than 300 of proteins, 100 of glucose, trace of ketones, large amount of blood, positive for nitrites, moderate amount of bilirubin 2.0, urobilinogen, large amount of leukocyte esterase, RBCs 11 to 20, WBCs greater than 50, 4 to 6 squamous cells, 2+ bacteria. The patient got admitted to the hospital. At the time of admission, his chest x-ray showed no focal consolidation or alveolar edema. He was placed on vancomycin and meropenem, IV fluids, Levophed to titrate MAP to more than 65. He was admitted to intensive care unit. He was seen by Dr. Pantoja for Pulmonary/Critical Care evaluation, who recommended Urology consultation. The patient was continued on fluid resuscitation and vasopressors. He improved quickly to the point that his vitals were stable and he was able to be transferred out to medical floor, but because of elevation of troponin I at 0.182, then 0.205, [employer] Inspector on-call was called in and was consulted. The patient was transferred to the telemetry floor subsequently and his primary metal tank erector, Dr. Ferreira increased the dose of his beta silvano to 37.5, and angiogram was deferred at this point. His vancomycin was stopped after the blood cultures came back negative. He was continued on meropenem. His urine culture came back negative, but culture was done in not appropriate way, it was done after he was started on antibiotics, and Urologist was consulted; Dr. Guerra said that his phimosis was most likely the cause of his urinary tract infection and subsequently sepsis, so the patient is doing well today, although he required additional medications for his blood pressure, which was lisinopril 5 mg. His blood pressure is down to 165/77, pulse is 77, respiratory rate is 18, temperature is 97.6, O2 saturation is 95% on room air. He is seen and examined before he is discharged. MEDICATIONS: At the time of discharge; 1. Finasteride 5 mg once a day. 2. Levofloxacin 500 mg once a day, starting today. 3. Lisinopril 5 mg once a day. 4. Multivitamin once a day. 5. Pantoprazole 40 mg twice a day. 6. Flomax 0.4 mg daily. 7. Eliquis 5 mg twice a day. 8. Metoprolol 37.5 mg daily. FOLLOWUP: He is going to follow up with his primary care physician in [address] Guerra for his phimosis repair in 2 weeks. TIME SPENT: Time spent on this discharge is more than 30 minutes. Job ID: [id number]
[2019-02-03] MEDS ORDERED: Lisinopril 5 MG TAB PO SCH (09:00)
[2019-02-04 05:10] LABS: Hep B Surface AG-Rflx Sendout Negative (Negative); Hepatitis B Core Total Negative (Negative); Hepatitis B Surface AB-Sendout Non Reactive (.)
== END 2019-02-02 19:40 | disposition home or self-care (01) | DRG 871 ==
LOC: ERS 01:22 → CCU 03:54 → T4-B 14:56 → 2NO 01-29 17:58
PROVIDERS: ADMIT Internal Medicine; ATTEND Internal Medicine
PROC: 02HV33Z Insertion of Infusion Device into Superior Vena Cava, Percutaneous Approach (ICD-10-PCS; principal; 2019-01-28)
PROC: 3E033XZ Introduction of Vasopressor into Peripheral Vein, Percutaneous Approach (ICD-10-PCS; 2019-01-28)
DX: A41.9 Sepsis, unspecified organism (principal); R65.21 Severe sepsis with septic shock; I21.A1 Myocardial infarction type 2; Z68.41 Body mass index [BMI] 40.0-44.9, adult; N13.8 Other obstructive and reflux uropathy; I42.9 Cardiomyopathy, unspecified; N30.00 Acute cystitis without hematuria; W06.XXXA Fall from bed, initial encounter; F32.9 Major depressive disorder, single episode, unspecified; I48.91 Unspecified atrial fibrillation; M19.90 Unspecified osteoarthritis, unspecified site; D69.6 Thrombocytopenia, unspecified; E78.00 Pure hypercholesterolemia, unspecified; N40.1 Benign prostatic hyperplasia with lower urinary tract symptoms; R33.9 Retention of urine, unspecified; N47.1 Phimosis; E66.01 Morbid (severe) obesity due to excess calories; N28.1 Cyst of kidney, acquired; R16.1 Splenomegaly, not elsewhere classified; Z79.899 Other long term (current) drug therapy; Z87.891 Personal history of nicotine dependence; Z79.01 Long term (current) use of anticoagulants
CPT/HCPCS: 36415; 36556; 71045; 76700; 80048; 80053; 80061; 80202; 81003; 81015; 82553; 83605; 84484; 85025; 86704; 86705; 86706; 86707; 86803; 87040; 87077; 87086; 87340; 87350; 87804; 93005; 93306; 96361; 96365; 96366; 96367; J1160; J1650; J2185; J2543; J3370; J3490; J7050; J7070; S0028

== ENCOUNTER 2019-04-05 21:51 | Emergency (ER) | payer MEDICARE ==
[2019-04-05 22:48] LABS: Bilirubin Negative (Negative); Blood, Urine Large (Negative); Glucose, Urine (Dipstick) Negative (Negative); Leukocyte Moderate (Negative); Nitrite Negative (Negative); Protein, Urine (Dipstick) 100 mg/dL (Neg-Trace); Urobilinogen 0.2 mg/dL (Less than 2)
[2019-04-05 22:56] LABS: #Eosinphils 0.1 thou/uL (0.0-0.7); #Lymphocytes 1.6 thou/uL (1.20-3.40); #Monocytes 0.5 thou/uL (0.11-0.59); #Neutrophils 5.8 thou/uL (1.40-6.50); %Basophils 0.1 % (0.0-1.0); %Eosinophils 0.8 % (0.0-10.0); %Lymphocytes 19.9 % (21.0-51.0); %Monocytes 6.7 % (0.0-10.0); %Neutrophils 72.5 % (42.0-75.0); Hemoglobin 12.5 g/dL (14.0-18.0); Mean Corpuscular HGB CONC 33.2 g/dL (32.0-36.0); Mean Corpuscular Hemoglobin 30.4 pg (27.0-31.0); Mean Corpuscular Volume 91.6 fL (78.0-98.0); Mean Platelet Volume 8.5 fL (7.4-10.4); Platelet Count 145 thou/uL (130-400); RBC Distribution Width 14.7 % (11.5-14.5)
[2019-04-05 23:01] LABS: Clarity Cloudy (Clear)
[2019-04-05 23:08] LABS: RBC/HPF 21-50 HPF (0-3)
[2019-04-05 23:09] LABS: Bacteria/HPF 3+ HPF (None Seen); Triple Phosphate Crystal 2+ HPF (None Seen)
[2019-04-05 23:19] LABS: ALT (SGPT) 51 U/L (8-55); AST (SGOT) 47 U/L (5-34); Albumin 3.6 g/dL (3.4-4.8); Alkaline Phosphatase 86 U/L (40-110); Anion Gap 10 mmol/L (10-20); BUN (Urea Nitrogen) 19 mg/dL (8.4-25.7); Bilirubin, Total 0.8 mg/dL (0.2-1.2); Calc. Creatinine Clearance 0 mL/min (70-130); Carbon Dioxide 27 mmol/L (23-31); Chloride 104 mmol/L (98-107); Estimated GFR-MDRD 68; Globulin 4.1 g/dL (2.4-3.5); Glucose 112 mg/dL (83-110); Potassium 4.1 mmol/L (3.5-5.1); Protein, Total 7.7 g/dL (5.8-8.1); Sodium 137 mmol/L (136-145)
== END 2019-04-05 23:40 | disposition home or self-care (01) ==
LOC: ERS 21:51
DX: N39.0 Urinary tract infection, site not specified (principal); F32.9 Major depressive disorder, single episode, unspecified; I48.91 Unspecified atrial fibrillation; E78.00 Pure hypercholesterolemia, unspecified
CPT/HCPCS: 36415; 80053; 81003; 81015; 85025; 87070; 87077; 87086; 99283

== ENCOUNTER 2019-04-28 05:52 | Day surgery (SDC) | payer MEDICARE ==
[2019-04-28] MEDS ORDERED: Heparin 10,000 UNITS/1 ML VIAL ONE (06:29)
[2019-04-28] MEDS ORDERED: Verapamil 5 MG/2 ML VIAL ONE (06:29)
[2019-04-28] MEDS ORDERED: Nitroglycerin 100MG/250ML BOT 250 ML ONE (06:30)
[2019-04-28] MEDS ORDERED: Heparin (Artline) 1,000 ML ONE (06:30)
[2019-04-28 06:39] LABS: #Eosinphils 0.1 thou/uL (0.0-0.7); #Lymphocytes 1.8 thou/uL (1.20-3.40); #Monocytes 0.4 thou/uL (0.11-0.59); #Neutrophils 4.3 thou/uL (1.40-6.50); %Basophils 0.1 % (0.0-1.0); %Lymphocytes 27.1 % (21.0-51.0); %Neutrophils 65.9 % (42.0-75.0); Mean Corpuscular HGB CONC 32.5 g/dL (32.0-36.0); Mean Corpuscular Hemoglobin 29.7 pg (27.0-31.0); Mean Corpuscular Volume 91.3 fL (78.0-98.0); Mean Platelet Volume 8.6 fL (7.4-10.4); Platelet Count 151 thou/uL (130-400); RBC Distribution Width 14.7 % (11.5-14.5); Red Blood Cell (RBC) Count 4.38 mill/uL (4.70-6.10); White Blood Cell (WBC) Count 6.5 thou/uL (4.8-10.8)
[2019-04-28 06:46] LABS: INR-International Normal Ratio 1.1; PTT 35.7 SEC (22.9-36.1); Prothrombin Time 14.3 SEC (12.0-14.7)
[2019-04-28 06:59] LABS: Anion Gap 12 mmol/L (10-20); BUN (Urea Nitrogen) 15 mg/dL (8.4-25.7); Calc. Creatinine Clearance 0 mL/min (70-130); Calcium 9.2 mg/dL (7.8-10.44); Carbon Dioxide 25 mmol/L (23-31); Chloride 104 mmol/L (98-107); Estimated GFR-MDRD 76; Glucose 107 mg/dL (83-110); Sodium 137 mmol/L (136-145)
[2019-04-28] MEDS ORDERED: Iopamidol 370 76% 100 ML VIAL ONE (09:03)
--- NOTE | 2019-04-28 15:12 | CON ---
DATE OF CONSULTATION: HISTORY OF PRESENT ILLNESS: This is a 74-year-old gentleman, who underwent cardiac catheterization today by Dr. Ferreira. The patient has a cardiac history dating back about a year ago when he had a bleeding peptic ulcer and post cauterization, he developed AFib with RVR. He had a slight troponin bump at that time. Stress PET scan showed inferior ischemia. However, it was felt at that time best to treat him medically. He did well and then was admitted about 2 months ago with probable urinary tract sepsis related to untreated phimosis. At that time, he had a slight troponin bump and a cardiac echo showed probably EF of 45% to 50%. Cardiac catheterization was to be scheduled on an outpatient basis, which was done today. His cardiovascular risk factors include dyslipidemia, mild hypertension, and morbid obesity. SOCIAL HISTORY: The patient is . He is retired from [employer] and has been retired since 2003 when the company closed. He weighed about 185 to 200 pounds at that time, then gained up to 350 and now is back down to about 285. He remains inactive. PAST SURGICAL HISTORY: Includes endoscopy on his left knee. FAMILY HISTORY: Positive for diabetes. ALLERGIES: NONE KNOWN. MEDICATIONS: Include; 1. Eliquis 5 b.i.d. 2. Atorvastatin 40. 3. Metoprolol succinate 25 mg 1-1/2 tablets daily. 4. Flomax 0.4 a day. 5. Lisinopril 5 a day. 6. Finasteride 5 mg a day. 7. Centrum vitamins. PHYSICAL EXAMINATION: GENERAL: On examination, he is alert, cooperative gentleman. VITAL SIGNS: Blood pressure 140/70, heart rate 78 and regular. Weight 285, BMI 41, height 70 inches. NECK: No carotid bruits. LUNGS: Clear to auscultation. CARDIAC: Regular rate and rhythm. No murmurs. ABDOMEN: Obese, nontender. EXTREMITIES: He has no edema, but has skin pigmentation in both lower legs consistent with chronic venous insufficiency. He has strong popliteal pulses and I am unable to palpate pedal pulses today. I have reviewed his cardiac catheterization and he appears to have some mild distal left main disease, 80% LAD after takeoff of a high diagonal. Circumflex consists of a large obtuse marginal branch and a smaller second obtuse marginal. His right coronary artery has about 80% stenosis and a sizable acute margin and then is occluded just above the PDA, posterolateral bifurcation and these vessels fill both from right, but predominantly from left-sided collaterals and appeared to communicate. Potential targets include the LAD, possibly diagonal, probably obtuse marginal and PDA. The patient does have phimosis and was scheduled for surgery on this week. However, this will be postponed due to his need for coronary artery bypass grafting. The patient's review of systems at this time is positive for dysuria and he is going to have his urinary culture checked this week by his primary care physician, which probably would then make his surgical intervention after the holidays. He is asymptomatic with no chest pain. He does have some dyspnea, but as mentioned, does not exert himself really. Concerns for surgical intervention will be his morbid obesity, probable need for left atrial appendage ligation, and question about the quality of his vein due to his skin changes in his lower legs. We will also probably need something done to allow Bauman catheter placement with his phimosis and will probably need gram-negative coverage at the time of surgery in addition to his Ancef. Job ID: [id number]
== END 2019-04-28 13:45 | disposition home or self-care (01) ==
LOC: CCL 05:52
PROVIDERS: ATTEND Internal Medicine Cardiovascular Disease
PROC: 4A023N7 Measurement of Cardiac Sampling and Pressure, Left Heart, Percutaneous Approach (ICD-10-PCS; principal; 2019-04-28)
PROC: B2101ZZ Fluoroscopy of Single Coronary Artery using Low Osmolar Contrast (ICD-10-PCS; 2019-04-28)
DX: I48.0 Paroxysmal atrial fibrillation (principal); I47.2 Ventricular tachycardia; N40.0 Benign prostatic hyperplasia without lower urinary tract symptoms; M19.90 Unspecified osteoarthritis, unspecified site; E66.9 Obesity, unspecified; Z68.41 Body mass index [BMI] 40.0-44.9, adult; Z79.01 Long term (current) use of anticoagulants; Z79.899 Other long term (current) drug therapy; Z87.891 Personal history of nicotine dependence
CPT/HCPCS: 36415; 80048; 85025; 85610; 85730; 93005; 93010; 93454; C1769; J1644; Q9967

== ENCOUNTER 2019-05-19 05:51 | Inpatient (IN) | payer MEDICARE ==
[2019-05-19] MEDS ORDERED: Norepinephrine 4 MG/4 ML VIAL ONE (06:19)
[2019-05-19] MEDS ORDERED: Nitroglycerin 50 MG/250 ML BOT 250 ML ONE (06:20)
[2019-05-19 07:10] LABS: Hemoglobin 12.9 g/dL (14.0-18.0); Mean Corpuscular HGB CONC 33.1 g/dL (32.0-36.0); Mean Corpuscular Hemoglobin 29.5 pg (27.0-31.0); Mean Corpuscular Volume 89.2 fL (78.0-98.0); Platelet Count 148 thou/uL (130-400); RBC Distribution Width 14.6 % (11.5-14.5); Red Blood Cell (RBC) Count 4.36 mill/uL (4.70-6.10); White Blood Cell (WBC) Count 10.7 thou/uL (4.8-10.8)
[2019-05-19 07:11] LABS: #Eosinphils 0.1 thou/uL (0.0-0.7); #Lymphocytes 0.7 thou/uL (1.20-3.40); #Monocytes 0.7 thou/uL (0.11-0.59); #Neutrophils 9.2 thou/uL (1.40-6.50); %Basophils 0.3 % (0.0-1.0); %Eosinophils 0.5 % (0.0-10.0); %Lymphocytes 6.7 % (21.0-51.0); %Monocytes 6.6 % (0.0-10.0)
[2019-05-19 07:23] LABS: Anion Gap 13 mmol/L (10-20); BUN (Urea Nitrogen) 18 mg/dL (8.4-25.7); Calc. Creatinine Clearance 113 mL/min (70-130); Calcium 9.1 mg/dL (7.8-10.44); Carbon Dioxide 23 mmol/L (23-31); Chloride 102 mmol/L (98-107); Estimated GFR-MDRD 70; Glucose 121 mg/dL (83-110); Potassium 4.2 mmol/L (3.5-5.1); Sodium 134 mmol/L (136-145)
[2019-05-19] MEDS ORDERED: B & O 30 MG SUPP PR PRN (07:57)
[2019-05-19] MEDS ORDERED: NS 0.9% w/ 20 MEQ KCL 1,000 ML/1,000 ML BAG IV SCH (09:30)
--- NOTE | 2019-05-19 09:56 | RAD ---
XR Chest Pa Lat STANDARD History: Fever Comparison: Radiograph January 18, 2019 Findings: Lungs are clear. No pneumothorax or effusion. Cardiac silhouette and mediastinal contours a re within normal limits. No acute osseous abnormality. Impression: No acute intrathoracic abnormality.
--- NOTE | 2019-05-19 11:15 | HP ---
ADMISSION DIAGNOSES: 1. History of urinary retention. 2. Apparent urosepsis following procedure. 3. Coronary artery disease with pending CABG. HISTORY OF PRESENT ILLNESS: Mr. Henok Lopez is a very pleasant 74-year-old Portuguese-speaking male who I evaluated due to severe phimosis, buried penis, and urinary retention. The patient underwent previous hospitalization here at [facility] for urosepsis on his last admission. 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 Based on these findings, a Bauman catheter was placed and the patient did receive a suprapubic tube as well. The patient's catheter has been draining urine with an appropriate amount of blood given the procedures. On Sunday night, the night after the patient's procedure, he had a chill and though he was on oral Augmentin, developed subjective fever though not documented by temperature measurement. The patient has continued to have these symptoms and presented this morning for coronary artery bypass grafting. However, due to temperature in the preop area of 100.6 degrees, we opted to delay his coronary bypass procedure in concurrence with Dr. Dawson. The patient is admitted to the service for evaluation and assessment probable incipient urosepsis. ALLERGY HISTORY: No known drug allergies. HOME MEDICATION LIST: Includes the following. 1. Finasteride 5 mg per day. 2. Lisinopril 5 mg p.o. daily. 3. Multivitamin. 4. Pantoprazole 40 mg twice daily. 5. Flomax 0.4 mg twice daily. 6. Eliquis 5 mg twice daily, currently suspended. 7. Metoprolol 37.5 mg p.o. daily. 8. Augmentin 875 p.o. twice daily. PAST MEDICAL HISTORY: 1. Atrial fibrillation. 2. History of bladder outlet obstruction due to phimosis and benign prostatic hypertrophy. 3. History of bleeding ulcer. 4. Chronically elevated PSA. 5. Coronary artery disease, awaiting coronary bypass. PAST SURGICAL HISTORY: 1. Polypectomy with colonoscopy, 07/21/2016. 2. Dorsal slit procedure and suprapubic tube insertion, 05/16/2019. SOCIAL HISTORY: The patient does not smoke or drink. He is and has very supportive family. He is retired from the [employer] business. PHYSICAL EXAMINATION: VITAL SIGNS: Pulse is 90, blood pressure is 128/72. GENERAL: This is a pleasant, heavyset white male, in no apparent distress. Grossly to my immediate examination, he does not appear to be ill, though he does report suprapubic discomfort at the SP tube insertion site which remains dressed and plugged and also pain at the tip of the penis associated with what appeared to be bladder spasms. He reports urine passing around the catheter periodically when he has pain in his bladder. HEAD, EYES, EARS, NOSE, AND THROAT: Extraocular movements are intact. Sclerae are anicteric. Oropharynx is clear. NECK: Supple. LUNGS: Appear clear bilaterally. The patient does have body morphology associated changes. HEART: Appears to have an irregular rhythm which would be consistent with atrial fibrillation. ABDOMEN: On percussion finds resonance in all four quadrants. GENITOURINARY: A suprapubic tube is in place as described and is plugged. Small amount of red blood cells seen in the catheter. The urine is not grossly purulent. Bauman catheter is present. The patient's phallus has undergone recent dorsal slit procedure. Glans is visible, although the buried penis feature is still there. Digital rectal examination is not repeated. The patient does have a history of elevated PSA, which is known. EXTREMITIES: There are venous stasis changes about both the left and right lower extremities. There is trace edema present. The patient does not report any wounds or other problems on any part of his body. REVIEW OF SYSTEMS: HEAD, EARS, NOSE, AND THROAT: Negative. CARDIAC: No chest pain complaint, though he is scheduled for coronary bypass. The patient does not report radiation into his neck or left arm of any pain symptoms. The patient does not report any abdominal pain above the umbilicus. The patient reports normal bowel movements over the last 48 hours. There are no reports of blood in the stool, although he frequently does have it from hemorrhoids. There has been no nausea or vomiting. From a Pulmonary standpoint, the patient does report that he has been coughing up some sputum, which does not have significant coloration to it. GENITOURINARY: Bladder spasm type complaint is noted. This seems to be the patient's only pain complaint and these are intermittent. EXTREMITIES: The lower extremities are within normal limits except for the venous stasis features which have been present for a long time. The patient usually wears compression hose, but has not been wearing those for the last couple of days. LABORATORY DATA: The patient's last positive urine culture here on 04/29/2019 grew Enterococcus faecalis. This has been treated adequately and was sensitive to multiple antibiotics including fluoroquinolones, nitrofurantoin, gentamicin, linezolid, and imipenem. Also sensitive to piperacillin and vancomycin, resistant to tetracycline. The patient's urine culture from [facility] [place] from 05/16/2019 grew no organisms. Gram stain evaluation showed no white cells present in urine. Today, the patient's electrolytes appear to be within normal limits except for a sodium of 134 and glucose of 121. Potassium was 4.2. The hematologic profile showed a normal white count of 10,700 and a neutrophil percentage of 86% with an ANC of 9200, which is elevated. ASSESSMENT AND PLAN: 1. Apparent incipient urosepsis to gross clinical findings given recent dorsal slit procedure where the tissue beneath the foreskin could not be prepped. This could be the potential origin of urinary tract infection or presumed urinary tract infection. The patient's urine today does have some red cells in it. Urinalysis would be uninformative given the surgical procedures and indwelling catheters, but culture may be beneficial. The patient has been on Augmentin over the weekend, so this may limit the utility of cultures. Plan will be to culture blood in urine and obtain a chest x-ray given the cough complaint that the patient has. He may have had Enterococcus faecalis or other organism trapped beneath his uncircumcised foreskin and this may be the source origin for possible UTI. The patient did undergo suprapubic tube insertion, although under ultrasound guidance, and was believed to have had a proper procedure without flaw. There is always a chance of adjacent structure injury and this will need to be followed over time. At the present time, he does not have findings to suggest that. 2. Possible atelectasis and/or other hidden source for the patient's findings. The patient reports that he has been lying around the house most of the weekend. There is always a risk of DVT or atelectasis in a patient who is not at his regular ambulatory status. Mr. Lopez ambulates with a walker and probably needs to be in a monitored situation while in hospital, but we do not want to overall limit his regular activities such that it would affect his later ability to have his bypass operation. In hospital, we probably should have him using YULY hose and sequential compression devices for DVT prophylaxis and this will be provided as well. Job ID: [id number]
[2019-05-19 12:43] VITALS: BMI 39.9
[2019-05-19] MEDS ORDERED: HYDROcodone/Acetaminophen 5/325 mg Tablet PO PRN (15:21)
[2019-05-19] MEDS: Phenazopyridine HCl 97.5 MG TABLET PO SCH ×2 (15:52→18:14)
[2019-05-19] MEDS: Aztreonam 2 GM in Sodium Chloride 0.9% 100 ML IVPB SCH ×2 (17:00→22:41)
[2019-05-19] MEDS: NS 0.9% w/ 20 MEQ KCL 1,000 ML/1,000 ML BAG IV SCH (18:14)
[2019-05-19] MEDS: Atorvastatin Calcium 40 MG TAB PO SCH (20:58)
[2019-05-19] MEDS: Trospium 20 MG TAB PO SCH (20:58)
[2019-05-19] MEDS ORDERED: Metoprolol Tartrate 25 MG TAB PO SCH ×2 (21:00)
--- NOTE | 2019-05-20 00:20 | PRG ---
DATE OF SERVICE: 05/19/2019 BRIEF HISTORY: Mr. Lopez was originally intended to have a coronary bypass operation this morning, however, was found to be febrile with a temperature of 100.6 in the preoperative holding area. He had undergone a dorsal slit procedure and suprapubic tube placement in my office. In addition, the patient had lower abdominal pain consistent with bladder spasms. I admitted him to my service for observation due to the findings suggestive of urinary tract infection with possible urosepsis as the patient had been previously admitted with this diagnosis. He was on antibiotics at admission with concern for possible recurrence of his previous infection. The patient has done well during hospitalization today. PHYSICAL EXAMINATION: VITAL SIGNS: The patient has remained afebrile since the start of IV antibiotics today. Current temperature 98.8, pulse 77, respirations 18, O2 saturation on room air is 94%, blood pressure is 133/78. The patient does not report any interval febrile episodes. HEAD, EYES, EARS, NOSE, AND THROAT: Extraocular movements are intact. Sclerae anicteric. Oropharynx is clear. NECK: Supple. CARDIAC: There is an irregularly irregular rhythm. LUNGS: Clear to auscultation with body morphology associated changes. ABDOMEN: Soft, obese, nontender. A suprapubic tube remains in place and is to catheter plug. GENITOURINARY: Bauman catheter remains in place and is to bag drainage. There is Azo-Pyridium staining of the urine as would be expected with much less blood then was observed this morning. EXTREMITIES: Sequential compression devices are present. LABORATORY STUDIES: There are no new labs since this morning. The white count this morning was 10,700 with 86% neutrophils. ASSESSMENT AND PLAN: 1. Apparent febrile episode associated with dorsal slit procedure. The patient had a pinpoint opening and was impossible to prep beneath the foreskin in this patient before performing surgical procedure on him. Appears to have developed urinary tract infection and/or sepsis from the procedure. There is no gross signs of infection on the penis itself today. Bauman catheter and SP tube remain in place. The patient was started on IV aztreonam, as well as IV ciprofloxacin. We are awaiting culture results. It is possible that with the antibiotics already on board, we may not culture an organism of this patient's blood or urine. No cultures remain pending. At the present time, we plan on keeping him on aztreonam and ciprofloxacin, and making a transition to appropriate oral medications when indicated. 2. Cardiac. We are going to try and minimize the additional IV fluid and we have cut the IV fluid rate down to 75 at this point, as he seems to be out of the sepsis picture for now. 3. Buried penis with phimosis. The phimosis has largely been dealt with by the dorsal slit procedure. Discussed with the patient in the future he may wish to have a circumcision, which is certainly something that is elective and may be performed after he has had his cardiac surgery. The best results would be obtained after substantial loss of weight, which may be possible in this patient following his cardiac surgery. 4. Anticoagulation status. The patient probably will be restarted on his Eliquis if he is not going to undergo coronary bypass soon and we will discuss that tomorrow. His gross hematuria has substantially resolved. Discussed with the patient mostly waiting on results of cultures at this point. Job ID: [id number]
[2019-05-20 04:44] LABS: #Eosinphils 0.1 thou/uL (0.0-0.7); #Lymphocytes 1.3 thou/uL (1.20-3.40); #Monocytes 0.7 thou/uL (0.11-0.59); #Neutrophils 5.3 thou/uL (1.40-6.50); %Basophils 0.2 % (0.0-1.0); %Eosinophils 1.6 % (0.0-10.0); %Lymphocytes 18.1 % (21.0-51.0); %Monocytes 9.4 % (0.0-10.0); %Neutrophils 70.8 % (42.0-75.0); Hemoglobin 11.9 g/dL (14.0-18.0); Mean Corpuscular HGB CONC 32.4 g/dL (32.0-36.0); Mean Corpuscular Hemoglobin 28.9 pg (27.0-31.0); Mean Corpuscular Volume 89.2 fL (78.0-98.0); Platelet Count 131 thou/uL (130-400); RBC Distribution Width 14.4 % (11.5-14.5); White Blood Cell (WBC) Count 7.4 thou/uL (4.8-10.8)
[2019-05-20 05:08] LABS: ALT (SGPT) 28 U/L (8-55); AST (SGOT) 32 U/L (5-34); Albumin 3.3 g/dL (3.4-4.8); Alkaline Phosphatase 87 U/L (40-110); Anion Gap 11 mmol/L (10-20); BUN (Urea Nitrogen) 17 mg/dL (8.4-25.7); Bilirubin, Total 1.5 mg/dL (0.2-1.2); Calc. Creatinine Clearance 127 mL/min (70-130); Calcium 8.6 mg/dL (7.8-10.44); Carbon Dioxide 25 mmol/L (23-31); Chloride 103 mmol/L (98-107); Estimated GFR-MDRD 82; Globulin 4.2 g/dL (2.4-3.5); Glucose 100 mg/dL (83-110); Potassium 3.9 mmol/L (3.5-5.1); Protein, Total 7.5 g/dL (5.8-8.1); Sodium 135 mmol/L (136-145)
[2019-05-20] MEDS: Aztreonam 2 GM in Sodium Chloride 0.9% 100 ML IVPB SCH ×2 (05:45→13:35)
[2019-05-20] MEDS: NS 0.9% w/ 20 MEQ KCL 1,000 ML/1,000 ML BAG IV SCH ×2 (06:38→20:08)
[2019-05-20] MEDS: Trospium 20 MG TAB PO SCH ×2 (08:34→20:04)
[2019-05-20] MEDS: Phenazopyridine HCl 97.5 MG TABLET PO SCH ×3 (08:34→18:03)
[2019-05-20] MEDS: Finasteride 5 MG TAB PO SCH (08:35)
[2019-05-20] MEDS: Lisinopril 5 MG TAB PO SCH (08:35)
[2019-05-20] MEDS: Tamsulosin HCl 0.4 MG CAP PO SCH (08:35)
[2019-05-20] MEDS: Multivit, Therapeutic 1 TAB PO SCH (08:35)
[2019-05-20] MEDS ORDERED: Prevnar 13-Val Conj/PF 0.5 ML SYRINGE IM ONE (11:45)
[2019-05-20] MEDS: Cipro 250 MG TAB PO SCH (20:04)
[2019-05-20] MEDS: Atorvastatin Calcium 40 MG TAB PO SCH (20:05)
--- NOTE | 2019-05-21 02:35 | CON ---
DATE OF CONSULTATION: 05/20/2019 BRIEF HISTORY: Mr. Henok Lopez is a very pleasant 74-year-old Latvian-speaking male with a history of severe phimosis, urinary retention and recent urosepsis, who underwent suprapubic tube placement and dorsal slit procedure on 05/16/2019. The patient over the weekend developed some bladder spasms and had subjective fever at home, was brought to the emergency department and had a temperature of 100.6 on the morning of his planned coronary bypass graft operation, which was yesterday, 05/19/2019. Due to the concern for possible impending sepsis, patient was admitted to my service and placed on IV antibiotics, which consist of aztreonam and ciprofloxacin. There was no further fever during the patient's hospitalization and the patient has done well. So far, cultures are only about 24 hours old from the blood and urine and show no growth. The patient was on Augmentin at home, so there was concern for a wonder drug type fever as well. The patient has a normal white count today and no evidence of left shift at present. Today, the patient reports his discomfort is under good control. He has been on low rate IV fluid during the day, which we are discontinuing as well. PHYSICAL EXAMINATION: VITAL SIGNS: The patient remains afebrile for the entirety of the hospitalization except for his first vital sign measurement. Current temperature of 97.7, pulse 84, respirations 18, O2 saturation on room air is 95%, blood pressure is 105/61. GENERAL: This is an awake, alert, Latvian-speaking male, no apparent distress. He was evaluated in the cardiac floor. The patient has telemetry monitoring present. LUNGS: Clear to auscultation. CARDIAC: There is a regular rate and rhythm. Review of the patient's cardiac strip over the last 24 hours shows that he has a normal sinus rhythm. There are no acute signs of an acute coronary syndrome. There is occasional PVC present. ABDOMEN: Soft and nontender. A suprapubic tube remains in place and is to catheter plug. The patient's Bauman catheter is draining Pyridium stained urine with no other abnormalities present. The patient's SP tube site remains dressed. It would be certainly okay to remove the dressing at this point, if needed. EXTREMITIES: Appear within normal limits. Sequential compression devices are available and on. LABORATORY DATA: Laboratory studies, cultures of blood x2 and urine x1 show no growth at 24 hours. [place] [address] and has decreased to 7400 during hospitalization. The patient has no elevation of the ANC, which was elevated to 9.2 at admission and is now down to 5.3. Serum chemistry showed the patient's potassium at 3.9 today, down from 4.2 yesterday. Glucose is normal at 100. Estimated glomerular filtration rate was at 82 today. Sodium is at 135, a little improved from 134 yesterday. ASSESSMENT AND PLAN: 1. Concerns for sepsis. This seems to have been nipped in the bud by conversion ciprofloxacin alternatively as the patient may have had a wonder drug type reaction to his Augmentin, dehydration or other cause. At the present time, there is no evidence of active sepsis. The patient has no positive cultures so far at 24 hours of culture. 2. I intend to reassess the patient tomorrow. In the meantime, we are going to discontinue the aztreonam and have the patient on oral ciprofloxacin. If the patient remains afebrile on oral ciprofloxacin, we may consider discharge home on that medication. 3. Suprapubic tube and Bauman catheter drainage of patient's bladder. Patient was in urinary retention when evaluated on 05/16/2019 and has indwelling [place] as well as indwelling suprapubic tube. The suprapubic tube does not have a mature tract and would require over wire exchange. 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 Over 35 minutes of evaluation, coordination of care and discussion with family and patient was spent today. Job ID: [id number]
[2019-05-21 04:39] LABS: #Eosinphils 0.2 thou/uL (0.0-0.7); #Lymphocytes 1.5 thou/uL (1.20-3.40); #Monocytes 0.7 thou/uL (0.11-0.59); #Neutrophils 5.5 thou/uL (1.40-6.50); %Basophils 0.4 % (0.0-1.0); %Eosinophils 2.4 % (0.0-10.0); %Lymphocytes 18.7 % (21.0-51.0); %Monocytes 8.5 % (0.0-10.0); Hemoglobin 11.1 g/dL (14.0-18.0); Mean Corpuscular HGB CONC 32.7 g/dL (32.0-36.0); Mean Corpuscular Hemoglobin 29.6 pg (27.0-31.0); Mean Corpuscular Volume 90.3 fL (78.0-98.0); Mean Platelet Volume 8.7 fL (7.4-10.4); Platelet Count 141 thou/uL (130-400); RBC Distribution Width 14.4 % (11.5-14.5); Red Blood Cell (RBC) Count 3.77 mill/uL (4.70-6.10); White Blood Cell (WBC) Count 7.9 thou/uL (4.8-10.8)
[2019-05-21] MEDS: Cipro 250 MG TAB PO SCH ×2 (05:11→21:13)
[2019-05-21] MEDS: Finasteride 5 MG TAB PO SCH (08:56)
[2019-05-21] MEDS: Lisinopril 5 MG TAB PO SCH (08:56)
[2019-05-21] MEDS: Trospium 20 MG TAB PO SCH ×2 (08:57→21:13)
[2019-05-21] MEDS: Phenazopyridine HCl 97.5 MG TABLET PO SCH ×3 (08:57→18:26)
[2019-05-21] MEDS: Tamsulosin HCl 0.4 MG CAP PO SCH (08:57)
[2019-05-21] MEDS: Multivit, Therapeutic 1 TAB PO SCH (08:57)
[2019-05-21 15:30] VITALS: TEMP 98.1
[2019-05-21 19:48] VITALS: BP 112/71
[2019-05-21] MEDS: Atorvastatin Calcium 40 MG TAB PO SCH (21:13)
--- NOTE | 2019-05-21 22:31 | DIS ---
DATE OF ADMISSION: 05/19/2019 DATE OF DISCHARGE: 05/21/2019 REASON FOR HOSPITAL ADMISSION: Concern for possible sepsis with left shift and elevated white blood cell count and potential source of infection. BRIEF HISTORY: Mr. Henok Lopez is a very pleasant 74-year-old Salvadorean-speaking male with a history of severe phimosis, urinary retention and recent urosepsis episode, who underwent suprapubic tube placement and dorsal slit procedure on 05/16/2019. The patient did well. He did notice some chills in the evening of 05/17/2019 and also 05/18/2019. On the morning of 05/19/2019, the patient presented to the [facility] for a planned coronary artery bypass graft operation by Dr. Issac Dawson and was found to have a temperature of 100.6. The patient's left shift was noted, as well as his lower abdominal discomfort. Due to that, we elected to admit him to the Urology service for evaluation and management. The patient had blood cultures x2 and urine cultures obtained and remained afebrile from the time of hospitalization. He was started on aztreonam and ciprofloxacin intravenously, was maintained that way for 2 days. The patient was transitioned to oral ciprofloxacin alone on the last 24 hours of his hospitalization and never developed additional fever. His white count remained in the normal range and he was discharged home in good condition. The plan is for a 2-week course of ciprofloxacin therapy. The patient's indwelling suprapubic tube was noted to be dislodged in the afternoon of 05/21/2019 and was discontinued leaving a Bauman catheter in place. The patient is otherwise doing well and is discharged home to the care of his family. PHYSICAL EXAMINATION: GENERAL: At the time of discharge, finds the patient in good health. He is afebrile and not in pain. Has not been requiring narcotic pain medication during hospitalization. He has been solely managed on bladder spasm medicine trospium and phenazopyridine. HEAD, EYES, EARS, NOSE, AND THROAT: Extraocular movements are intact. Sclerae anicteric. Oropharynx is clear. LUNGS: Clear bilaterally. CARDIAC: Regular rate and rhythm. Cardiac monitoring evaluation shows no abnormalities. Occasional PVC is present. ABDOMEN: Soft and nontender. Suprapubic tube site showed some drainage in the catheter was irrigated and no proper communication of the patient's indwelling Bauman catheter was established. Due to that, the indwelling SP tube was discontinued by deflating the balloon and removing it. A sterile dressing was applied over the exit site. The existing indwelling Bauman catheter was left in place. EXTREMITIES: The patient has bilateral venous stasis, but no obvious ulcers. He is appropriate for YULY hose use at this point. LABORATORY STUDIES: From today showed normal white count, it is 7900, hemoglobin of 11.1, hematocrit of 34. Neutrophil percentage was 70. ANC was 5.5. Serum chemistry showed the patient's electrolytes on 05/20/2019, essentially within normal limits except for sodium of 135. DISCHARGE MEDICATIONS: The patient is discharged home on the followin. p.o. q.4 to 6 hours p.r.n. for pain. 2. Ciprofloxacin 500 mg p.o. b.i.d. 3. Finasteride 5 mg p.o. daily. 4. Lisinopril 5 mg p.o. daily. 5. Metoprolol succinate 37.5 mg p.o. q.a.m. 6. Daily multivitamin and Theragran. 7. Protonix 40 mg p.o. b.i.d. 8. Phenazopyridine 97.5 mg p.o. b.i.d. 9. Tamsulosin 0.4 mg p.o. daily. 10. Trospium 20 mg p.o. b.i.d. DISCHARGE INSTRUCTIONS: He will follow up in my office at [facility] on 06/03/2019 for a possible voiding trial versus Bauman catheter exchange. Since the patient has undergone a dorsal slit procedure, exchange of the Bauman catheter remains a reasonable option. Over 35 minutes of discharge consultation, evaluation, and assessment as well as coordination of care time was spent in evaluation of the patient today. Job ID: [id number]
--- NOTE | 2019-05-22 02:05 | PQF ---
JOSEPH COSME DAVID LAWRENCE MD [id number] CLINICAL DOCUMENTATION CLARIFICATION FORM: POST DISCHARGE Addendum to original discharge summary date: ____ Late entry note date: __ DATE: 05/22/19 ATTN: Hernan Coates Please exercise your independent, professional judgment in responding to the clarification form. Clinical indicators are provided on the bottom of this form for your review Please check appropriate box(es): [ ] Sepsis due to UTI [ ] Sepsis due to Split dorsal procedure complication [ ] UTI due to Split dorsal procedure complication [ ] UTI only not related to procedure [ ] Other diagnosis [ ] Unable to determine In addition, please specify: Present on Admission (POA): [ ] Yes [ ] No [ ] Unable to determine For continuity of documentation, please document condition throughout progress notes and discharge summary. Thank You. CLINICAL INDICATORS - SIGNS / SYMPTOMS / LABS H&P p1 05/19 Dr Guerra Apparent Urosepsis following procedure H&P p1 05/19 Dr Guerra Evaluated due to severe phimosis, buried penis, and urinary retention underwent dorsal slit procedure H&P p1 05/19 Dr Guerra Based on findings, a phan catheter was placed and received a suprapubic catheter H&P p1 05/19 Dr Guerra Preop area with temperature of 100.6 degrees H&P p1 05/19 Dr Guerra Evaluation and assessment probable incipient urosepsis Discharge summary p1 05/21 concern for possible sepsis with left shift and elevated white blood cell count and potential infection RISK FACTORS H&P p1 05/19 - 74 year-old H&P p1 05/19 - Urosepsis TREATMENTS: JUL 12 IV Ciprofloxacin H&P p3 05/19 - Urine culture ordered (This form is maintained as a part of the permanent medical record) 2014 [employer]. All Rights Reserved [email or web address] [not provided] MTDD
== END 2019-05-21 22:38 | disposition home or self-care (01) | DRG 864 ==
LOC: SURG A 05:51 → 2NO 09:47
PROVIDERS: ADMIT Thoracic Surgery (Cardiothoracic Vascular Surgery); ATTEND Thoracic Surgery (Cardiothoracic Vascular Surgery)
PROC: 3E033XZ Introduction of Vasopressor into Peripheral Vein, Percutaneous Approach (ICD-10-PCS; principal; 2019-05-19)
DX: R50.82 Postprocedural fever (principal); T83.020A Displacement of cystostomy catheter, initial encounter; I25.10 Atherosclerotic heart disease of native coronary artery without angina pectoris; I48.91 Unspecified atrial fibrillation; N47.1 Phimosis; Y84.6 Urinary catheterization as the cause of abnormal reaction of the patient, or of later complication, without mention of misadventure at the time of the procedure; Z79.899 Other long term (current) drug therapy; Z79.01 Long term (current) use of anticoagulants; Z28.21 Immunization not carried out because of patient refusal
CPT/HCPCS: 36415; 71046; 80048; 80053; 83880; 85025; 87040; 87086; J0744; J3480; J3490

== ENCOUNTER 2019-06-11 10:30 | Inpatient (IN) | payer MEDICARE ==
--- NOTE | 2019-06-10 12:14 | HP ---
HISTORY OF PRESENT ILLNESS: This is a 74-year-old gentleman, who underwent cardiac catheterization in mid April by Dr. Ferreira and at that time was found to have coronary artery disease. His cardiac history did begin about a year earlier when he developed atrial fibrillation with rapid ventricular response and slight troponin bump. PET stress showed an abnormality inferiorly and he was initially treated medically. About 2 months earlier, he underwent evaluation for urinary tract sepsis related to untreated phimosis. Once again, he had a slight troponin bump and a cardiac echo showed diminished EF at 45%. This ultimately led to his cardiac catheterization. Risk factors include obesity, hypertension, dyslipidemia. Obesity is morbid. SOCIAL HISTORY: The patient is . He is retired from [employer] and is retired since 2003. His weight has varied between 185 and 350 and currently is 285. Inactive lifestyle. PAST SURGICAL HISTORY: Left knee arthroscopy. FAMILY HISTORY: Diabetes. ALLERGIES: NONE KNOWN. MEDICATIONS: 1. Eliquis 5 b.i.d., which should be on hold. 2. Atorvastatin 40 daily. 3. Metoprolol 25 one and half tablet daily. 4. Metoprolol succinate. 5. Flomax 0.4 daily. 6. Lisinopril 5 daily. 7. Finasteride 5 daily. ADDITIONAL PAST SURGICAL HISTORY: Includes a suprapubic tube and dorsal slit more recently by Dr. Hernan Guerra. PHYSICAL EXAMINATION: GENERAL: On examination, blood pressure is 140/70, heart rate 78, weight 286, and BMI 41. NECK: No carotid bruits. LUNGS: Clear lungs to auscultation. CARDIAC: Regular rate and rhythm. No murmurs. ABDOMEN: Obese, nontender. EXTREMITIES: No edema, but he does have significant pigmentation of both lower legs consistent with chronic venous insufficiency. I am unable to palpate pedal pulses, but he has strong popliteal pulses. Cardiac catheterization demonstrates mild distal left main disease with an 80% LAD lesion at the takeoff of a high diagonal. The circumflex consists of a large obtuse marginal and a smaller obtuse marginal. His right coronary artery has about 80% stenosis with a sizable acute marginal and then is occluded just above the PDA, posterolateral bifurcation and these vessels fill from the right as well as from the left, but predominantly left-sided. Potential targets include the LAD, probably OM, PDA, and possibly diagonal. Informed consent has been obtained. Job ID: [id number]
[2019-06-11 11:58] LABS: Hemoglobin 14.6 g/dL (14.0-18.0); Mean Corpuscular HGB CONC 32.1 g/dL (32.0-36.0); Mean Corpuscular Hemoglobin 29.2 pg (27.0-31.0); Mean Corpuscular Volume 90.9 fL (78.0-98.0); Mean Platelet Volume 9.1 fL (7.4-10.4); Platelet Count 168 thou/uL (130-400); RBC Distribution Width 14.8 % (11.5-14.5); Red Blood Cell (RBC) Count 4.99 mill/uL (4.70-6.10); White Blood Cell (WBC) Count 7.5 thou/uL (4.8-10.8)
[2019-06-11 12:23] LABS: Anion Gap 12 mmol/L (10-20); BUN (Urea Nitrogen) 19 mg/dL (8.4-25.7); Calc. Creatinine Clearance 0 mL/min (70-130); Calcium 9.6 mg/dL (7.8-10.44); Carbon Dioxide 26 mmol/L (23-31); Chloride 102 mmol/L (98-107); Estimated GFR-MDRD 58; Glucose 104 mg/dL (83-110); Potassium 4.1 mmol/L (3.5-5.1); Sodium 136 mmol/L (136-145)
[2019-06-17] MEDS ORDERED: Albumin 5% 500 ML ONE (06:26)
[2019-06-17] MEDS ORDERED: Midazolam HCl 2 mg/2 ml Vial ONE (06:40)
[2019-06-17] MEDS ORDERED: Fentanyl 250 MCG/5 ML VIAL ONE (06:40)
[2019-06-17] MEDS ORDERED: Phenylephrine HCL 10 MG/ML VIAL ONE (06:41)
[2019-06-17] MEDS ORDERED: Dexmedetomidine 200 MCG/2 ML VIAL ONE (06:41)
[2019-06-17] MEDS ORDERED: Heparin 10,000 UNITS/1 ML VIAL 30,000 UNITS in Sodium Chloride 0.9% 1,000 ML IVPB SCH (07:15)
[2019-06-17] MEDS ORDERED: Sodium Chloride 0.9% 10 ML ONE (07:39)
[2019-06-17] MEDS ORDERED: Insulin Regular 300 UNITS/3 ML VIAL ONE (09:54)
[2019-06-17] MEDS ORDERED: Mag-Al 1200 mg/1200 mg/30 ML UDCUP PO PRN (12:04)
[2019-06-17] MEDS ORDERED: HYDROcodone/Acetaminophen 5/325 mg Tablet PO PRN (12:04)
[2019-06-17] MEDS ORDERED: Fentanyl 100 MCG/2 ML VIAL SLOW IVP PRN ×2 (12:04)
[2019-06-17] MEDS ORDERED: Norepinephrine 8 MG/0.9% NS 250 ML IVPB PRN (12:04)
[2019-06-17] MEDS ORDERED: Hetastarch 6% 500 ML 500 ML IVPB PRN (12:04)
[2019-06-17] MEDS ORDERED: Morphine 2 MG/ML SYRINGE SLOW IVP PRN (12:04)
[2019-06-17] MEDS ORDERED: Promethazine HCl 25 MG/ML VIAL IM PRN (12:04)
[2019-06-17] MEDS ORDERED: Potassium Chloride 20 MEQ/100 ML PREMIX BAG IVPB PRN (12:04)
[2019-06-17] MEDS ORDERED: Post-Op Insulin Drip Protocol IVPB ONE (12:04)
[2019-06-17] MEDS ORDERED: Nitroglycerin 50 MG/250 ML BOT 250 ML IVPB PRN (12:04)
[2019-06-17] MEDS ORDERED: hydrALAZINE 20 MG/ML VIAL SLOW IVP PRN (12:04)
[2019-06-17] MEDS ORDERED: Acetaminophen 325 MG TAB PO PRN (12:04)
[2019-06-17] MEDS ORDERED: Ondansetron PF 4 MG/2 ML Vial IVP PRN (12:04)
[2019-06-17] MEDS ORDERED: Bisacodyl 10 MG SUPP PR PRN (12:04)
[2019-06-17] MEDS ORDERED: Bisacodyl 5 MG TAB PO PRN (12:04)
[2019-06-17] MEDS ORDERED: niCARdipine 25 MG in Sodium Chloride 0.9% 250 ML 240 ML IVPB PRN (12:04)
[2019-06-17] MEDS ORDERED: HUMULIN R 100 UNITS in Sodium Chloride 0.9% 100 ML IVPB SCH (12:31)
[2019-06-17] MEDS ORDERED: Dextrose 50% Abboject 50 ML SYRINGE SLOW IVP PRN (12:31)
[2019-06-17] MEDS ORDERED: Insulin Regular 300 UNITS/3 ML VIAL SC PRN (12:31)
[2019-06-17] MEDS ORDERED: Dextrose 5% in Water 1,000 ML IV PRN (12:31)
[2019-06-17] MEDS: Lactated Ringer's 1,000 ML IV SCH ×2 (12:40→23:40)
[2019-06-17] MEDS: DOPamine 400 MG/D5W 250 ML 250 ML IVPB PRN ×2 (12:42→20:15)
[2019-06-17] MEDS ORDERED: Magnesium 2 GM/50 ML 2 GM in Premix Bag 1 BAG IVPB SCH (12:45)
[2019-06-17] MEDS ORDERED: ePHEDrine/0.9% NaCl/PF SYRINGE 50 mg/10 ml ONE (12:46)
[2019-06-17] MEDS ORDERED: Cardioplegic Soln 1,000 ML BAG ONE (12:46)
[2019-06-17] MEDS ORDERED: Ondansetron PF 4 MG/2 ML Vial ONE (12:46)
[2019-06-17] MEDS ORDERED: PHENYLEPHRINE-NS 100 MCG/ML 10 ML SYRINGE ONE (12:46)
[2019-06-17] MEDS ORDERED: Ketorolac Tromethamine 30 MG/ML VIAL ONE (12:46)
[2019-06-17] MEDS ORDERED: Heparin 30,000 units/30 ml VIAL ONE (12:46)
[2019-06-17] MEDS ORDERED: Heparin 5,000 UNITS/ML VIAL ONE (12:46)
[2019-06-17] MEDS ORDERED: Sodium Bicarb 50 MEQ/50 ML Abboject 8.4% SYRINGE ONE (12:46)
[2019-06-17] MEDS ORDERED: Potassium Chloride 60 MEQ/30 ML VIAL ONE (12:46)
[2019-06-17] MEDS ORDERED: Magnesium Sulfate 1 GM/2 ML VIAL ONE (12:46)
[2019-06-17] MEDS ORDERED: Rocuronium Bromide 10 MG/ML (10ML VIAL) ONE (12:46)
[2019-06-17] MEDS ORDERED: Lidocaine 2% PF 5 ML VIAL ONE (12:46)
[2019-06-17] MEDS ORDERED: Protamine Sulfate 250 MG/25 ML VIAL ONE (12:46)
[2019-06-17] MEDS ORDERED: PROPOFOL 200 MG/20 ML VIAL ONE (12:46)
[2019-06-17] MEDS ORDERED: Thrombin 5000 UNITS/5 ML VIAL ONE (12:46)
[2019-06-17] MEDS ORDERED: Lidocaine 1% PF 5 ML VIAL ONE (12:46)
[2019-06-17] MEDS ORDERED: Aminocaproic Acid 5 GM/20 ML VIAL ONE (12:46)
[2019-06-17] MEDS ORDERED: Papaverine 60 MG/2 ML VIAL ONE (12:46)
[2019-06-17] MEDS ORDERED: Calcium Chloride 1 GM/10 ML Abboject SYRINGE ONE (12:46)
[2019-06-17 12:59] LABS: #Lymphocytes 1.2 thou/uL (1.20-3.40); #Neutrophils 14.1 thou/uL (1.40-6.50); %Basophils 0.1 % (0.0-1.0); %Eosinophils 0.3 % (0.0-10.0); %Lymphocytes 7.5 % (21.0-51.0); %Monocytes 5.9 % (0.0-10.0); %Neutrophils 86.2 % (42.0-75.0); Hemoglobin 11.1 g/dL (14.0-18.0); Mean Corpuscular HGB CONC 31.9 g/dL (32.0-36.0); Mean Corpuscular Volume 90.8 fL (78.0-98.0); Platelet Count 120 thou/uL (130-400); RBC Distribution Width 14.6 % (11.5-14.5); Red Blood Cell (RBC) Count 3.82 mill/uL (4.70-6.10); White Blood Cell (WBC) Count 16.3 thou/uL (4.8-10.8)
[2019-06-17 13:07] LABS: INR-International Normal Ratio 1.6; PTT 34.3 SEC (22.9-36.1); Prothrombin Time 18.6 SEC (12.0-14.7)
[2019-06-17 13:14] LABS: Actual Bicarbonate (HCO3a) 20.6 mEq/L (22-28); Base Excess (BEa) -4.2 mEq/L (-2.0 to +3.0); CO2 Tension 36.5 mmHg (35.0-45.0); Calcium, Ionized 1.07 mmol/L (1.12-1.30); Carboxyhemoglobin (COHb) 2.2 gm% (0.0-3.0); Hemoglobin (Hb) 11.4 g/dL (14.0-18.0); O2 Tension (PaO2) 90.6 mmHg (> 70.0); Potassium - ABG Lab 4.32 mmol/L (3.70-5.30); pH, Arterial 7.37 (7.35-7.45)
[2019-06-17 13:16] LABS: Puncture Site ALINE
[2019-06-17 13:17] LABS: Anion Gap 11 mmol/L (10-20); BUN (Urea Nitrogen) 16 mg/dL (8.4-25.7); Calc. Creatinine Clearance 123 mL/min (70-130); Calcium 7.8 mg/dL (7.8-10.44); Carbon Dioxide 25 mmol/L (23-31); Chloride 108 mmol/L (98-107); Estimated GFR-MDRD 81; Glucose 138 mg/dL (83-110); Potassium 4.6 mmol/L (3.5-5.1); Sodium 139 mmol/L (136-145)
[2019-06-17 13:17] LABS: ALV-art Gradient 220.275 (0-20)
[2019-06-17] MEDS: CEFAZOLIN 2 GM in Premix Bag 1 BAG IVPB SCH ×2 (13:19→21:00)
--- NOTE | 2019-06-17 13:33 | RAD ---
CHEST 1 VIEW: HISTORY: Postop open heart. COMPARISON: 05/19/2018. FINDINGS: Postop midline sternotomy. Tracheostomy and right central line are in place with chest tubes in plac e. Poor inspiratory effort with mild vascular congestion but no confluent pneumonia or pneumothorax. IMPRESSION: Poor inspiration with vascular congestion and postop changes, evidence for prior coronary artery bypa ss graft. POS: TPC
--- NOTE | 2019-06-17 15:29 | OP ---
DATE OF PROCEDURE: 06/17/2019 DIAGNOSES: Coronary artery disease and history of atrial fibrillation. PROCEDURES PERFORMED: Coronary artery bypass graft x4, left internal mammary artery to a 1.5 mm left anterior descending proximally, saphenous vein graft large to a 2.5 mm obtuse marginal, saphenous vein graft to a right posterior descending artery 2 mm, and saphenous vein graft to diagonal 1.5 and left atrial appendage ligation. SCHOOL GUIDANCE COUNSELOR: Pineda Day MD TRANSFUSION: One platelet pack. DESCRIPTION OF PROCEDURE: After adequate anesthesia had been obtained, the patient was prepped and draped. Dr. Day did an endovascular vein harvest, converted open on the left greater saphenous vein. The patient had rather large vein as anticipated given his chronic venous stasis changes in both lower legs. Simultaneously, I performed a median sternotomy and harvested the left internal mammary artery, which was somewhat difficult related to his body habitus. After harvesting the BOLIVAR, it was divided distally after heparinization. Thymus gland was resected to allow access to the mediastinum. Following aortic and right atrial cannulation, cardiopulmonary bypass was begun. The vessels were inspected for grafting and the aorta was crossclamped and a liter of cold blood cardioplegia was given. The left atrial appendage was oversewn at the base with a running double layer of 4-0 Prolene suture in a horizontal mattress fashion. Four distal anastomosis were then completed. Following which, the cross-clamp was removed and the partial occluding clamp was placed and 2 proximal anastomosis performed on the aortic root from the PDA and the OM. Cross-clamp was removed. Following which, the diagonal vein graft was anastomosed to the side of the OM vein graft. The patient was then weaned from cardiopulmonary bypass. Cannula was removed and protamine was given systemically. Aortic cannulation site was secured with a 4-0 Prolene suture. The patient had a lot of oozing at that point and platelets were ordered and given. The sternum was reapproximated with three #5 wires in the manubrium and then, three zip ties and then, a final wire at the xiphoid. Following vancomycin paste application at the bone edges, the sternum was reapproximated. Subcutaneous tissue was closed in layers with interrupted [id number] sutures. The patient was to be taken to the ICU in guarded condition. Job ID: [id number]
[2019-06-17 17:38] LABS: Actual Bicarbonate (HCO3a) 21.7 mEq/L (22-28); Base Excess (BEa) -3.3 mEq/L (-2.0 to +3.0); CO2 Tension 38.7 mmHg (35.0-45.0); Calcium, Ionized 1.07 mmol/L (1.12-1.30); Carboxyhemoglobin (COHb) 1.7 gm% (0.0-3.0); Hemoglobin (Hb) 11.4 g/dL (14.0-18.0); O2 Tension (PaO2) 118.7 mmHg (> 70.0); Potassium - ABG Lab 4.38 mmol/L (3.70-5.30); pH, Arterial 7.37 (7.35-7.45)
[2019-06-17 17:42] LABS: ALV-art Gradient 118.125 (0-20); Puncture Site ALINE
[2019-06-17 18:06] LABS: Hemoglobin 11.1 g/dL (14.0-18.0)
[2019-06-17 18:19] LABS: Potassium 4.4 mmol/L (3.5-5.1)
[2019-06-17] MEDS: Famotidine/PF 20 mg/2ml Vial SLOW IVP SCH (19:40)
[2019-06-17] MEDS: Simvastatin 40 MG TAB PO SCH (19:40)
--- NOTE | 2019-06-17 20:46 | PRG ---
DATE OF SERVICE: 06/17/2019 SUBJECTIVE: Mr. Lopez is doing well postoperatively and underwent successful bypass surgery. OBJECTIVE: VITAL SIGNS: Blood pressure is 107/64, pulse 84 and regular. LUNGS: Clear. CARDIAC: Normal S1 and S2. ASSESSMENT: Status post surgery, doing well. PLAN: Today, he will be followed up by his primary powder operator, Dr. Ferreira, tomorrow. Job ID: [id number]
[2019-06-17] MEDS: HYDROcodone/Acetaminophen 5/325 mg Tablet PO PRN (20:56)
[2019-06-18] MEDS: HYDROcodone/Acetaminophen 5/325 mg Tablet PO PRN ×3 (00:41→19:40)
[2019-06-18 02:43] LABS: #Lymphocytes 0.8 thou/uL (1.20-3.40); #Monocytes 0.6 thou/uL (0.11-0.59); #Neutrophils 7.5 thou/uL (1.40-6.50); %Basophils 0.2 % (0.0-1.0); %Eosinophils 0.1 % (0.0-10.0); %Lymphocytes 8.5 % (21.0-51.0); %Neutrophils 84.3 % (42.0-75.0); Hemoglobin 9.8 g/dL (14.0-18.0); Mean Corpuscular HGB CONC 31.7 g/dL (32.0-36.0); Mean Corpuscular Volume 91.5 fL (78.0-98.0); Mean Platelet Volume 8.9 fL (7.4-10.4); Platelet Count 125 thou/uL (130-400); RBC Distribution Width 14.6 % (11.5-14.5); Red Blood Cell (RBC) Count 3.38 mill/uL (4.70-6.10); White Blood Cell (WBC) Count 8.9 thou/uL (4.8-10.8)
[2019-06-18 03:06] LABS: Anion Gap 11 mmol/L (10-20); BUN (Urea Nitrogen) 13 mg/dL (8.4-25.7); Calc. Creatinine Clearance 140 mL/min (70-130); Calcium 7.7 mg/dL (7.8-10.44); Carbon Dioxide 25 mmol/L (23-31); Chloride 107 mmol/L (98-107); Estimated GFR-MDRD Greater than 90; Glucose 125 mg/dL (83-110); Potassium 4.4 mmol/L (3.5-5.1); Sodium 139 mmol/L (136-145)
[2019-06-18] MEDS: DOPamine 400 MG/D5W 250 ML 250 ML IVPB PRN ×3 (05:03→18:43)
[2019-06-18] MEDS: CEFAZOLIN 2 GM in Premix Bag 1 BAG IVPB SCH (05:04)
--- NOTE | 2019-06-18 08:17 | RAD ---
SINGLE VIEW OF THE CHEST: COMPARISON: 06/17/2019. HISTORY: Status post open heart surgery. FINDINGS: A single view of the chest shows an enlarged but stable cardiomediastinal silhouette. The patient is status post sternotomy. The endotracheal tube has been removed. The other lines and tubes are unch anged in position. No pneumothorax is seen. Atelectasis may be present in the left lung base. IMPRESSION: Stable exam status post extubation. POS: CET
[2019-06-18] MEDS: Aspirin Chewable 81 MG TAB PO SCH (09:28)
[2019-06-18] MEDS: Famotidine/PF 20 mg/2ml Vial SLOW IVP SCH ×2 (09:29→21:01)
[2019-06-18] MEDS ORDERED: Sodium Chloride 0.9% 500 ML IV SCH (10:30)
[2019-06-18] MEDS ORDERED: Insulin Glargine 12 UNITS in Pre-Filled Syringe 1 EACH SC SCH (12:15)
--- NOTE | 2019-06-18 13:39 | PDOC.CPN ---
- Subjective Date: 06/18/19 Time: 13:37 Interval history: No complaints Extubated. Pt on dopamine - Objective Allergies/Adverse Reactions: Allergies Allergy/AdvReac Type Severity Reaction Status Date / Time No Known Allergies Allergy Verified 06/11/19 10:36 Visit Medications: Current Medications Acetaminophen (Tylenol) 650 mg PO Q6H PRN PRN Reason: Headache/Fever Or Mild Pain Hydrocodone Bitart/Acetaminophen ([place] 5/325) 1 tab PO Q4H PRN PRN Reason: Moderate Pain (4-6) Hydrocodone Bitart/Acetaminophen ([place] 5/325) 2 tab PO Q4H PRN PRN Reason: Severe Pain (7-10) Last Admin: 06/18/19 10:47 Dose: 2 tab Al Hydroxide/Mg Hydroxide (Maalox) 30 ml PO Q4H PRN PRN Reason: Indigestion Albuterol/Ipratropium (Duoneb) 3 ml NEB [id number] PRN PRN Reason: SHORTNESS OF BREATH Aspirin (Aspirin Chewable) 81 mg PO DAILY [facility] Last Admin: 06/18/19 09:28 Dose: 81 mg Bisacodyl (Dulcolax) 10 mg PO Q12H PRN PRN Reason: Constipation Bisacodyl (Dulcolax) 10 mg [place] Q12H PRN PRN Reason: Constipation Dextrose/Water (Dextrose 50%) 25 gm SLOW IVP PRN PRN PRN Reason: PER HYPOGLYCEMIC PROTOCOL Famotidine (Pepcid) 20 mg SLOW IVP Q12HR [facility] Last Admin: 06/18/19 09:29 Dose: 20 mg Fentanyl (Sublimaze) 25 mcg SLOW IVP Q2H PRN PRN Reason: Moderate Pain (4-6) Stop: 06/19/19 11:53 Fentanyl (Sublimaze) 50 mcg SLOW IVP Q2H PRN PRN Reason: Severe Pain (7-10) Stop: 06/19/19 11:53 Last Admin: 06/17/19 17:50 Dose: 50 mcg Glucagon (Glucagon) 1 mg SC PRN PRN PRN Reason: PER HYPOGLYCEMIC PROTOCOL Guaifenesin/Dextromethorphan (Robitussin Dm) 15 ml PO Q4H PRN PRN Reason: Cough Hydralazine HCl (Apresoline) 10 mg SLOW IVP Q6H PRN PRN Reason: To Maintain SBP< 140mmHG Dopamine HCl/Dextrose (Dopamine 400 Mg/D5w 250 Ml) 250 mls @ 0 mls/hr IVPB PRN PRN; Protocol PRN Reason: To maintain SBP > 90 mmHG Last Admin: 06/18/19 12:55 Dose: 250 mls Lactated Ringer's (Lactated Ringer's) 1,000 mls @ 75 mls/hr IV .[id number] [facility] Last Admin: 06/17/19 23:40 Dose: 1,000 mls Norepinephrine Bitartrate (Levophed) 250 mls @ 0 mls/hr IVPB PRN PRN; Protocol PRN Reason: To maintain SBP > 90 mmHG Nicardipine HCl 25 mg/ Sodium (Chloride) 250 mls @ 0 mls/hr IVPB INF PRN; Protocol PRN Reason: To Maintain SBP< 140mmHG Nitroglycerin/Dextrose (Nitroglycerin 50 Mg/250 Ml Bot) 250 mls @ 0 mls/hr IVPB PRN PRN; Protocol PRN Reason: To Maintain SBP< 140mmHG Insulin Human Regular 100 (units/ Sodium Chloride) 101 mls @ 0 mls/hr IVPB INF [facility]; Protocol Last Admin: 06/17/19 16:52 Dose: 101 mls Dextrose/Water (D5w) 1,000 mls @ 0 mls/hr IV INF PRN PRN Reason: PRN HYPOGLYCEMIC PROTOCOL Insulin Glargine 12 units/ (Miscellaneous Medication) 0.12 mls @ 0 mls/hr SC NOW [facility] Stop: 06/18/19 14:15 Last Admin: 06/18/19 12:56 Dose: 0.12 mls Insulin Human Regular (Humulin R) 0 units SC Q4H PRN; Protocol PRN Reason: POST OP SLIDING SCALE Last Admin: 06/17/19 13:07 Dose: 3 unit Morphine Sulfate (Morphine) 2 mg SLOW IVP Q15MIN PRN PRN Reason: Severe Pain (7-10) Last Admin: 06/17/19 13:06 Dose: 2 mg Ondansetron HCl (Zofran) 4 mg IVP Q6H PRN PRN Reason: Nausea/Vomiting Last Admin: 06/18/19 05:41 Dose: 4 mg Pneumococcal 13-Valent Conj Vacc (Prevnar) 0.5 ml IM .ONCE ONE Stop: 06/18/19 14:01 Potassium Chloride (Kcl) 20 meq IVPB PRN PRN PRN Reason: K level </= 4.0 Promethazine HCl (Phenergan) 6.25 mg IM Q4H PRN PRN Reason: Nausea/Vomiting Simvastatin (Zocor) 40 mg PO QPM [facility] Last Admin: 06/17/19 19:40 Dose: 40 mg Sodium Chloride (Flush - Normal Saline) 10 ml IVF Q12HR [facility] Sodium Chloride (Flush - Normal Saline) 10 ml IVF PRN PRN PRN Reason: Saline Flush Vital Signs & Weight: Vital Signs Temp Pulse Ox 06/18/19 11:00 98.6 F 06/18/19 08:00 98 06/18/19 07:00 98.2 F 06/18/19 03:00 98.0 F Weight 282 lb 13.649 oz - Physical Exam General: alert & oriented x3 Neck: supple neck Cardiac: no murmur, regular rate, regular rhythm Lungs: normal exam, no wheeze, rales, rhonchi Neuro: grossly intact - Labs Result Diagrams: 06/18/19 02:15 06/18/19 02:15 - Assessment/Plan Assessment/Plan: Severe CAD Afib hypotension NS bolus Wean off dopamine statin and ASA treatment BB when BP stable
[2019-06-18] MEDS ORDERED: Prevnar 13-Val Conj/PF 0.5 ML SYRINGE IM ONE (14:00)
[2019-06-18] MEDS: Lactated Ringer's 1,000 ML IV SCH (18:19)
[2019-06-18] MEDS: Simvastatin 40 MG TAB PO SCH (21:01)
[2019-06-19] MEDS: DOPamine 400 MG/D5W 250 ML 250 ML IVPB PRN ×2 (00:33→07:50)
[2019-06-19] MEDS: HYDROcodone/Acetaminophen 5/325 mg Tablet PO PRN ×2 (03:23→11:49)
[2019-06-19 04:39] LABS: #Lymphocytes 1.2 thou/uL (1.20-3.40); #Monocytes 1.2 thou/uL (0.11-0.59); #Neutrophils 10.2 thou/uL (1.40-6.50); %Eosinophils 0.1 % (0.0-10.0); %Lymphocytes 9.7 % (21.0-51.0); %Monocytes 9.3 % (0.0-10.0); %Neutrophils 80.9 % (42.0-75.0); Hemoglobin 9.4 g/dL (14.0-18.0); Mean Corpuscular HGB CONC 32.2 g/dL (32.0-36.0); Mean Corpuscular Hemoglobin 29.3 pg (27.0-31.0); Mean Corpuscular Volume 91.2 fL (78.0-98.0); Platelet Count 140 thou/uL (130-400); RBC Distribution Width 14.8 % (11.5-14.5); Red Blood Cell (RBC) Count 3.22 mill/uL (4.70-6.10); White Blood Cell (WBC) Count 12.6 thou/uL (4.8-10.8)
[2019-06-19 05:07] LABS: Anion Gap 10 mmol/L (10-20); BUN (Urea Nitrogen) 11 mg/dL (8.4-25.7); Calc. Creatinine Clearance 143 mL/min (70-130); Calcium 7.9 mg/dL (7.8-10.44); Carbon Dioxide 26 mmol/L (23-31); Chloride 102 mmol/L (98-107); Estimated GFR-MDRD Greater than 90; Glucose 118 mg/dL (83-110); Potassium 4.5 mmol/L (3.5-5.1); Sodium 133 mmol/L (136-145)
[2019-06-19] MEDS ORDERED: Phenylephrine 10 MG/NS 250 ML 250 ML IVPB SCH (06:30)
[2019-06-19] MEDS: Guaifenesin DM 100-10/5 ML UDCUP PO PRN ×4 (07:12→21:56)
--- NOTE | 2019-06-19 07:40 | RAD ---
Chest one view HISTORY: Heart surgery. Follow-up. COMPARISON: 06/18/2019. FINDINGS: Cardiac silhouette is magnified and enlarged. Pulmonary vasculature remains engorged and ac centuated by shallow inspiration. Mediastinum is midline with postoperative changes and a right subclavian central venous catheter. Thoracostomy tube over the left base and atelectasis at the left base are unchanged. There is no evidence of pneumothorax. traffic signal mechanic leads overlie the chest. IMPRESSION: Stable postoperative appearance of the chest.
[2019-06-19] MEDS: Famotidine/PF 20 mg/2ml Vial SLOW IVP SCH ×2 (08:04→20:44)
[2019-06-19] MEDS: Aspirin Chewable 81 MG TAB PO SCH (08:04)
[2019-06-19] MEDS ORDERED: Sodium Chloride 0.9% 500 ML IV SCH (09:15)
--- NOTE | 2019-06-19 09:43 | PDOC.CPN ---
- Subjective Date: 06/19/19 Time: 08:43 Interval history: Pt without symptoms Still reliant on pressors Added noepynephrine and weaning of dopamine - Objective Allergies/Adverse Reactions: Allergies Allergy/AdvReac Type Severity Reaction Status Date / Time No Known Allergies Allergy Verified 06/11/19 10:36 Visit Medications: Current Medications Acetaminophen (Tylenol) 650 mg PO Q6H PRN PRN Reason: Headache/Fever Or Mild Pain Hydrocodone Bitart/Acetaminophen ([place] 5/325) 1 tab PO Q4H PRN PRN Reason: Moderate Pain (4-6) Hydrocodone Bitart/Acetaminophen ([place] 5/325) 2 tab PO Q4H PRN PRN Reason: Severe Pain (7-10) Last Admin: 06/19/19 03:23 Dose: 2 tab Al Hydroxide/Mg Hydroxide (Maalox) 30 ml PO Q4H PRN PRN Reason: Indigestion Albuterol/Ipratropium (Duoneb) 3 ml NEB [id number] PRN PRN Reason: SHORTNESS OF BREATH Aspirin (Aspirin Chewable) 81 mg PO DAILY [facility] Last Admin: 06/19/19 08:04 Dose: 81 mg Bisacodyl (Dulcolax) 10 mg PO Q12H PRN PRN Reason: Constipation Bisacodyl (Dulcolax) 10 mg [place] Q12H PRN PRN Reason: Constipation Dextrose/Water (Dextrose 50%) 25 gm SLOW IVP PRN PRN PRN Reason: PER HYPOGLYCEMIC PROTOCOL Famotidine (Pepcid) 20 mg SLOW IVP Q12HR [facility] Last Admin: 06/19/19 08:04 Dose: 20 mg Fentanyl (Sublimaze) 25 mcg SLOW IVP Q2H PRN PRN Reason: Moderate Pain (4-6) Stop: 06/19/19 11:53 Fentanyl (Sublimaze) 50 mcg SLOW IVP Q2H PRN PRN Reason: Severe Pain (7-10) Stop: 06/19/19 11:53 Last Admin: 06/17/19 17:50 Dose: 50 mcg Glucagon (Glucagon) 1 mg SC PRN PRN PRN Reason: PER HYPOGLYCEMIC PROTOCOL Guaifenesin/Dextromethorphan (Robitussin Dm) 15 ml PO Q4H PRN PRN Reason: Cough Last Admin: 06/19/19 07:12 Dose: 15 ml Hydralazine HCl (Apresoline) 10 mg SLOW IVP Q6H PRN PRN Reason: To Maintain SBP< 140mmHG Dopamine HCl/Dextrose (Dopamine 400 Mg/D5w 250 Ml) 250 mls @ 0 mls/hr IVPB PRN PRN; Protocol PRN Reason: To maintain SBP > 90 mmHG Last Admin: 06/19/19 07:50 Dose: 250 mls Norepinephrine Bitartrate (Levophed) 250 mls @ 0 mls/hr IVPB PRN PRN; Protocol PRN Reason: To maintain SBP > 90 mmHG Nitroglycerin/Dextrose (Nitroglycerin 50 Mg/250 Ml Bot) 250 mls @ 0 mls/hr IVPB PRN PRN; Protocol PRN Reason: To Maintain SBP< 140mmHG Insulin Human Regular 100 (units/ Sodium Chloride) 101 mls @ 0 mls/hr IVPB INF [facility]; Protocol Last Admin: 06/17/19 16:52 Dose: 101 mls Dextrose/Water (D5w) 1,000 mls @ 0 mls/hr IV INF PRN PRN Reason: PRN HYPOGLYCEMIC PROTOCOL Phenylephrine HCl 10 mg/ (Sodium Chloride) 251 mls @ 0 mls/hr IV INF [facility]; Protocol Last Admin: 06/19/19 07:12 Dose: 251 mls Insulin Human Regular (Humulin R) 0 units SC Q4H PRN; Protocol PRN Reason: POST OP SLIDING SCALE Last Admin: 06/17/19 13:07 Dose: 3 unit Morphine Sulfate (Morphine) 2 mg SLOW IVP Q15MIN PRN PRN Reason: Severe Pain (7-10) Last Admin: 06/17/19 13:06 Dose: 2 mg Ondansetron HCl (Zofran) 4 mg IVP Q6H PRN PRN Reason: Nausea/Vomiting Last Admin: 06/18/19 05:41 Dose: 4 mg Potassium Chloride (Kcl) 20 meq IVPB PRN PRN PRN Reason: K level </= 4.0 Promethazine HCl (Phenergan) 6.25 mg IM Q4H PRN PRN Reason: Nausea/Vomiting Simvastatin (Zocor) 40 mg PO QPM [facility]J Last Admin: 06/18/19 21:01 Dose: 40 mg Sodium Chloride (Flush - Normal Saline) 10 ml IVF Q12HR [facility] Last Admin: 06/18/19 21:21 Dose: Not Given Sodium Chloride (Flush - Normal Saline) 10 ml IVF PRN PRN PRN Reason: Saline Flush Vital Signs & Weight: Vital Signs Temp 06/19/19 04:00 99.1 F 06/19/19 00:00 100.1 F H Weight 278 lb 10.629 oz - Physical Exam General: alert & oriented x3 Cardiac: regular rate, regular rhythm Lungs: normal exam Abdomen: soft, non-tender Musculoskeletal: no pain - Labs Result Diagrams: 06/19/19 04:00 06/19/19 04:00 - Telemetry Sinus rhythms and dysrhythmias: sinus rhythm - Assessment/Plan Assessment/Plan: CAD s/p CABG Hypotension Consider adding dobutrex EF 45-50% in the past but difficult to quantify secondary to poor endocardial definition NS 500cc bolus Hb stable (not anemia as cause of hypotension)
[2019-06-19] MEDS: Lactated Ringer's 1,000 ML IV SCH (12:23)
[2019-06-19] MEDS: Simvastatin 40 MG TAB PO SCH (20:44)
[2019-06-20] MEDS: Guaifenesin DM 100-10/5 ML UDCUP PO PRN ×3 (02:39→18:16)
[2019-06-20 04:57] LABS: #Lymphocytes 1.9 thou/uL (1.20-3.40); #Monocytes 1.1 thou/uL (0.11-0.59); #Neutrophils 9.9 thou/uL (1.40-6.50); %Eosinophils 0.3 % (0.0-10.0); %Monocytes 8.7 % (0.0-10.0); %Neutrophils 75.9 % (42.0-75.0); Hemoglobin 8.6 g/dL (14.0-18.0); Mean Corpuscular HGB CONC 31.8 g/dL (32.0-36.0); Mean Corpuscular Hemoglobin 29.2 pg (27.0-31.0); Mean Corpuscular Volume 91.7 fL (78.0-98.0); Mean Platelet Volume 8.5 fL (7.4-10.4); Platelet Count 149 thou/uL (130-400); RBC Distribution Width 15.3 % (11.5-14.5); Red Blood Cell (RBC) Count 2.94 mill/uL (4.70-6.10)
[2019-06-20 05:15] LABS: Anion Gap 8 mmol/L (10-20); BUN (Urea Nitrogen) 14 mg/dL (8.4-25.7); Calc. Creatinine Clearance 141 mL/min (70-130); Calcium 7.6 mg/dL (7.8-10.44); Carbon Dioxide 26 mmol/L (23-31); Chloride 104 mmol/L (98-107); Estimated GFR-MDRD Greater than 90; Glucose 98 mg/dL (83-110); Potassium 4.2 mmol/L (3.5-5.1); Sodium 134 mmol/L (136-145)
[2019-06-20] MEDS: HYDROcodone/Acetaminophen 5/325 mg Tablet PO PRN (08:00)
--- NOTE | 2019-06-20 08:00 | PDOC.CPN ---
- Subjective Date: 06/20/19 Time: 07:53 Interval history: Pt still without symptoms Dopamine is off Still on neosynephrine - Objective Allergies/Adverse Reactions: Allergies Allergy/AdvReac Type Severity Reaction Status Date / Time No Known Allergies Allergy Verified 06/11/19 10:36 Visit Medications: Current Medications Acetaminophen (Tylenol) 650 mg PO Q6H PRN PRN Reason: Headache/Fever Or Mild Pain Hydrocodone Bitart/Acetaminophen ([place] 5/325) 1 tab PO Q4H PRN PRN Reason: Moderate Pain (4-6) Hydrocodone Bitart/Acetaminophen ([place] 5/325) 2 tab PO Q4H PRN PRN Reason: Severe Pain (7-10) Last Admin: 06/19/19 11:49 Dose: 2 tab Al Hydroxide/Mg Hydroxide (Maalox) 30 ml PO Q4H PRN PRN Reason: Indigestion Albuterol/Ipratropium (Duoneb) 3 ml NEB [id number] PRN PRN Reason: SHORTNESS OF BREATH Aspirin (Aspirin Chewable) 81 mg PO DAILY [facility] Last Admin: 06/19/19 08:04 Dose: 81 mg Bisacodyl (Dulcolax) 10 mg PO Q12H PRN PRN Reason: Constipation Last Admin: 06/19/19 22:15 Dose: 10 mg Bisacodyl (Dulcolax) 10 mg SD Q12H PRN PRN Reason: Constipation Dextrose/Water (Dextrose 50%) 25 gm SLOW IVP PRN PRN PRN Reason: PER HYPOGLYCEMIC PROTOCOL Famotidine (Pepcid) 20 mg SLOW IVP Q12HR [facility] Last Admin: 06/19/19 20:44 Dose: 20 mg Furosemide (Lasix) 40 mg SLOW IVP DAILY [facility] Glucagon (Glucagon) 1 mg SC PRN PRN PRN Reason: PER HYPOGLYCEMIC PROTOCOL Guaifenesin/Dextromethorphan (Robitussin Dm) 15 ml PO Q4H PRN PRN Reason: Cough Last Admin: 06/20/19 06:50 Dose: 15 ml Hydralazine HCl (Apresoline) 10 mg SLOW IVP Q6H PRN PRN Reason: To Maintain SBP< 140mmHG Dopamine HCl/Dextrose (Dopamine 400 Mg/D5w 250 Ml) 250 mls @ 0 mls/hr IVPB PRN PRN; Protocol PRN Reason: To maintain SBP > 90 mmHG Last Admin: 06/19/19 07:50 Dose: 250 mls Norepinephrine Bitartrate (Levophed) 250 mls @ 0 mls/hr IVPB PRN PRN; Protocol PRN Reason: To maintain SBP > 90 mmHG Nitroglycerin/Dextrose (Nitroglycerin 50 Mg/250 Ml Bot) 250 mls @ 0 mls/hr IVPB PRN PRN; Protocol PRN Reason: To Maintain SBP< 140mmHG Insulin Human Regular 100 (units/ Sodium Chloride) 101 mls @ 0 mls/hr IVPB INF [facility]; Protocol Last Admin: 06/17/19 16:52 Dose: 101 mls Dextrose/Water (D5w) 1,000 mls @ 0 mls/hr IV INF PRN PRN Reason: PRN HYPOGLYCEMIC PROTOCOL Phenylephrine HCl 20 mg/ (Sodium Chloride) 502 mls @ 0 mls/hr IV INF [facility]; Protocol Last Admin: 06/19/19 18:04 Dose: 502 mls Insulin Human Regular (Humulin R) 0 units SC Q4H PRN; Protocol PRN Reason: POST OP SLIDING SCALE Last Admin: 06/17/19 13:07 Dose: 3 unit Morphine Sulfate (Morphine) 2 mg SLOW IVP Q15MIN PRN PRN Reason: Severe Pain (7-10) Last Admin: 06/17/19 13:06 Dose: 2 mg Ondansetron HCl (Zofran) 4 mg IVP Q6H PRN PRN Reason: Nausea/Vomiting Last Admin: 06/18/19 05:41 Dose: 4 mg Potassium Chloride (Kcl) 20 meq IVPB PRN PRN PRN Reason: K level </= 4.0 Potassium Chloride (Klor-Con 10) 10 meq PO QA-[facility] Promethazine HCl (Phenergan) 6.25 mg IM Q4H PRN PRN Reason: Nausea/Vomiting Simvastatin (Zocor) 40 mg PO QPM [facility] Last Admin: 06/19/19 20:44 Dose: 40 mg Sodium Chloride (Flush - Normal Saline) 10 ml IVF Q12HR [facility] Last Admin: 06/20/19 00:17 Dose: Not Given Sodium Chloride (Flush - Normal Saline) 10 ml IVF PRN PRN PRN Reason: Saline Flush Last Admin: 06/19/19 11:51 Dose: 10 ml Vital Signs & Weight: Vital Signs Temp Pulse Ox 06/20/19 04:00 98.5 F 06/20/19 01:00 98.3 F 06/19/19 20:00 98 Weight 286 lb 9.615 oz - Physical Exam General: alert & oriented x3 Neck: no masses Cardiac: regular rate, regular rhythm Lungs: normal exam Neuro: grossly intact - Labs Result Diagrams: 06/20/19 04:40 06/20/19 04:40 - Assessment/Plan Assessment/Plan: CAD s/p CABG Hypotension Plan 06/20 remains hypotension requiring neosyneprhine Contiue to wean off aubrie Check cortisol level checek echo CXR yesterday without pneumo CXR this am pending Plan 06/19 Consider adding dobutrex EF 45-50% in the past but difficult to quantify secondary to poor endocardial definition NS 500cc bolus Hb stable (not anemia as cause of hypotension)
[2019-06-20] MEDS: Furosemide 40 MG/4 ML VIAL SLOW IVP SCH (08:03)
[2019-06-20] MEDS: Famotidine/PF 20 mg/2ml Vial SLOW IVP SCH ×2 (08:03→19:49)
[2019-06-20] MEDS: Potassium Chloride 10 MEQ TAB PO SCH (08:03)
[2019-06-20] MEDS: Aspirin Chewable 81 MG TAB PO SCH (08:03)
--- NOTE | 2019-06-20 10:08 | RAD ---
PORTABLE CHEST: DATE: 06/20/2019. PROVIDED CLINICAL HISTORY: Post open heart. FINDINGS: Comparison 06/19/2019. Evaluation is limited due to patient body habitus. Significant interval change with respect to the p rior examination is not definitely apparent. IMPRESSION: As above. POS: OFF
[2019-06-20] MEDS ORDERED: DOBUTamine 500 mg/250 ml 500 MG in Premix Bag 1 BAG IVPB SCH (12:15)
[2019-06-20] MEDS: Simvastatin 40 MG TAB PO SCH (19:49)
[2019-06-21 04:52] LABS: #Eosinphils 0.1 thou/uL (0.0-0.7); #Lymphocytes 1.5 thou/uL (1.20-3.40); #Monocytes 0.8 thou/uL (0.11-0.59); #Neutrophils 7.6 thou/uL (1.40-6.50); %Basophils 0.1 % (0.0-1.0); %Eosinophils 0.7 % (0.0-10.0); %Lymphocytes 15.1 % (21.0-51.0); %Monocytes 8.1 % (0.0-10.0); Mean Corpuscular HGB CONC 33.3 g/dL (32.0-36.0); Mean Corpuscular Hemoglobin 30.4 pg (27.0-31.0); Mean Corpuscular Volume 91.3 fL (78.0-98.0); Mean Platelet Volume 8.5 fL (7.4-10.4); Platelet Count 153 thou/uL (130-400); RBC Distribution Width 15.5 % (11.5-14.5); Red Blood Cell (RBC) Count 2.62 mill/uL (4.70-6.10)
[2019-06-21 05:34] LABS: Anion Gap 9 mmol/L (10-20); BUN (Urea Nitrogen) 16 mg/dL (8.4-25.7); Calc. Creatinine Clearance 159 mL/min (70-130); Calcium 7.4 mg/dL (7.8-10.44); Carbon Dioxide 26 mmol/L (23-31); Chloride 104 mmol/L (98-107); Estimated GFR-MDRD Greater than 90; Glucose 100 mg/dL (83-110); Potassium 3.6 mmol/L (3.5-5.1); Sodium 135 mmol/L (136-145)
[2019-06-21] MEDS: Aspirin Chewable 81 MG TAB PO SCH (09:25)
[2019-06-21] MEDS: HYDROcodone/Acetaminophen 5/325 mg Tablet PO PRN (09:25)
[2019-06-21] MEDS: Potassium Chloride 10 MEQ TAB PO SCH (09:25)
[2019-06-21] MEDS: Albumin 25% 25 GM/100 ML BOT IVPB SCH ×2 (09:26→20:54)
[2019-06-21] MEDS: Famotidine/PF 20 mg/2ml Vial SLOW IVP SCH ×2 (09:26→20:54)
[2019-06-21] MEDS: Furosemide 40 MG/4 ML VIAL SLOW IVP SCH (09:26)
[2019-06-21] MEDS: Guaifenesin DM 100-10/5 ML UDCUP PO PRN ×2 (09:26→21:18)
--- NOTE | 2019-06-21 11:00 | PDOC.CPN ---
- Subjective Date: 06/21/19 Time: 10:59 Interval history: Pt remains dependent on pressors. Started dobutrex yesterday and developed afib with RVR. DC and restarted aubrie No current symptoms. Pt seen sitting up - Objective Allergies/Adverse Reactions: Allergies Allergy/AdvReac Type Severity Reaction Status Date / Time No Known Allergies Allergy Verified 06/11/19 10:36 Visit Medications: Current Medications Acetaminophen (Tylenol) 650 mg PO Q6H PRN PRN Reason: Headache/Fever Or Mild Pain Hydrocodone Bitart/Acetaminophen ([place] 5/325) 1 tab PO Q4H PRN PRN Reason: Moderate Pain (4-6) Hydrocodone Bitart/Acetaminophen ([place] 5/325) 2 tab PO Q4H PRN PRN Reason: Severe Pain (7-10) Last Admin: 06/21/19 09:25 Dose: 2 tab Al Hydroxide/Mg Hydroxide (Maalox) 30 ml PO Q4H PRN PRN Reason: Indigestion Albumin Human (Albumin 25%) 25 gm IVPB Q12HR [facility] Stop: 06/22/19 09:01 Last Admin: 06/21/19 09:26 Dose: 25 gm Albuterol/Ipratropium (Duoneb) 3 ml NEB [id number] PRN PRN Reason: SHORTNESS OF BREATH Aspirin (Aspirin Chewable) 81 mg PO DAILY [facility] Last Admin: 06/21/19 09:25 Dose: 81 mg Bisacodyl (Dulcolax) 10 mg PO Q12H PRN PRN Reason: Constipation Last Admin: 06/19/19 22:15 Dose: 10 mg Bisacodyl (Dulcolax) 10 mg MA Q12H PRN PRN Reason: Constipation Dextrose/Water (Dextrose 50%) 25 gm SLOW IVP PRN PRN PRN Reason: PER HYPOGLYCEMIC PROTOCOL Famotidine (Pepcid) 20 mg SLOW IVP Q12HR [facility] Last Admin: 06/21/19 09:26 Dose: 20 mg Furosemide (Lasix) 40 mg SLOW IVP DAILY [facility] Last Admin: 06/21/19 09:26 Dose: 40 mg Glucagon (Glucagon) 1 mg SC PRN PRN PRN Reason: PER HYPOGLYCEMIC PROTOCOL Guaifenesin/Dextromethorphan (Robitussin Dm) 15 ml PO Q4H PRN PRN Reason: Cough Last Admin: 06/21/19 09:26 Dose: 15 ml Hydralazine HCl (Apresoline) 10 mg SLOW IVP Q6H PRN PRN Reason: To Maintain SBP< 140mmHG Insulin Human Regular 100 (units/ Sodium Chloride) 101 mls @ 0 mls/hr IVPB INF [facility]; Protocol Last Admin: 06/17/19 16:52 Dose: 101 mls Dextrose/Water (D5w) 1,000 mls @ 0 mls/hr IV INF PRN PRN Reason: PRN HYPOGLYCEMIC PROTOCOL Phenylephrine HCl 20 mg/ (Sodium Chloride) 502 mls @ 0 mls/hr IV INF [facility]; Protocol Last Admin: 06/21/19 06:03 Dose: 502 mls Morphine Sulfate (Morphine) 2 mg SLOW IVP Q15MIN PRN PRN Reason: Severe Pain (7-10) Last Admin: 06/17/19 13:06 Dose: 2 mg Ondansetron HCl (Zofran) 4 mg IVP Q6H PRN PRN Reason: Nausea/Vomiting Last Admin: 06/18/19 05:41 Dose: 4 mg Potassium Chloride (Kcl) 20 meq IVPB PRN PRN PRN Reason: K level </= 4.0 Potassium Chloride (Klor-Con 10) 10 meq PO QAM-WM [facility] Last Admin: 06/21/19 09:25 Dose: 10 meq Promethazine HCl (Phenergan) 6.25 mg IM Q4H PRN PRN Reason: Nausea/Vomiting Simvastatin (Zocor) 40 mg PO QPM [facility] Last Admin: 06/20/19 19:49 Dose: 40 mg Sodium Chloride (Flush - Normal Saline) 10 ml IVF Q12HR [facility] Last Admin: 06/21/19 09:26 Dose: 10 ml Sodium Chloride (Flush - Normal Saline) 10 ml IVF PRN PRN PRN Reason: Saline Flush Last Admin: 06/19/19 11:51 Dose: 10 ml Vital Signs & Weight: Vital Signs Temp 06/21/19 04:00 98.2 F 06/21/19 00:00 97.6 F Weight 289 lb 7.471 oz - Physical Exam General: alert & oriented x3 Neck: no JVD/HJR, no masses Cardiac: no murmur, regular rate, regular rhythm Lungs: normal exam Abdomen: soft - Labs Result Diagrams: 06/21/19 04:28 06/21/19 04:28 - Assessment/Plan Assessment/Plan: CAD s/p CABG Hypotension Plan 06/21 Wean off aubrie Cortisol level WNL Echo difficult to see Consider JEANIE on sunday if not able to wean off aubrie to assess the LV; will dicuss with CV Plan 06/20 remains hypotension requiring neosyneprhine Contiue to wean off aubrie Check cortisol level checek echo CXR yesterday without pneumo CXR this am pending Plan 06/19 Consider adding dobutrex EF 45-50% in the past but difficult to quantify secondary to poor endocardial definition NS 500cc bolus Hb stable (not anemia as cause of hypotension)
[2019-06-21] MEDS: Simvastatin 40 MG TAB PO SCH (20:54)
[2019-06-22 05:18] LABS: #Eosinphils 0.1 thou/uL (0.0-0.7); #Lymphocytes 1.1 thou/uL (1.20-3.40); #Monocytes 0.5 thou/uL (0.11-0.59); #Neutrophils 4.5 thou/uL (1.40-6.50); %Lymphocytes 17.8 % (21.0-51.0); %Neutrophils 72.2 % (42.0-75.0); Hemoglobin 7.4 g/dL (14.0-18.0); Mean Corpuscular HGB CONC 33.3 g/dL (32.0-36.0); Mean Corpuscular Hemoglobin 30.7 pg (27.0-31.0); Mean Corpuscular Volume 92.2 fL (78.0-98.0); Mean Platelet Volume 8.1 fL (7.4-10.4); Platelet Count 149 thou/uL (130-400); RBC Distribution Width 15.6 % (11.5-14.5); Red Blood Cell (RBC) Count 2.42 mill/uL (4.70-6.10); White Blood Cell (WBC) Count 6.3 thou/uL (4.8-10.8)
[2019-06-22] MEDS: HYDROcodone/Acetaminophen 5/325 mg Tablet PO PRN (05:37)
[2019-06-22 05:38] LABS: Anion Gap 8 mmol/L (10-20); BUN (Urea Nitrogen) 13 mg/dL (8.4-25.7); Calc. Creatinine Clearance 158 mL/min (70-130); Calcium 7.7 mg/dL (7.8-10.44); Carbon Dioxide 28 mmol/L (23-31); Chloride 104 mmol/L (98-107); Estimated GFR-MDRD Greater than 90; Glucose 93 mg/dL (83-110); Potassium 3.2 mmol/L (3.5-5.1); Sodium 137 mmol/L (136-145)
--- NOTE | 2019-06-22 06:58 | PDOC.CPN ---
- Subjective Date: 06/22/19 Time: 13:55 Interval history: doing much better Continuing to wean off aubrie - Review of Systems General: denies: fever/chills, weight/appetite/sleep changes, night sweats, fatigue Respiratory: denies: cough, congestion, shortness of breath, exercise intolerance Cardiovascular: denies: chest pain, palpitation, edema, paroxysmal nocturnal dyspnea, orthopnea - Objective Allergies/Adverse Reactions: Allergies Allergy/AdvReac Type Severity Reaction Status Date / Time No Known Allergies Allergy Verified 06/11/19 10:36 Visit Medications: Current Medications Acetaminophen (Tylenol) 650 mg PO Q6H PRN PRN Reason: Headache/Fever Or Mild Pain Hydrocodone Bitart/Acetaminophen ([place] 5/325) 1 tab PO Q4H PRN PRN Reason: Moderate Pain (4-6) Hydrocodone Bitart/Acetaminophen ([place] 5/325) 2 tab PO Q4H PRN PRN Reason: Severe Pain (7-10) Last Admin: 06/22/19 05:37 Dose: 2 tab Al Hydroxide/Mg Hydroxide (Maalox) 30 ml PO Q4H PRN PRN Reason: Indigestion Albumin Human (Albumin 25%) 25 gm IVPB Q12HR [facility] Stop: 06/22/19 09:01 Last Admin: 06/21/19 20:54 Dose: 25 gm Albuterol/Ipratropium (Duoneb) 3 ml NEB [id number] PRN PRN Reason: SHORTNESS OF BREATH Aspirin (Aspirin Chewable) 81 mg PO DAILY [facility] Last Admin: 06/21/19 09:25 Dose: 81 mg Bisacodyl (Dulcolax) 10 mg PO Q12H PRN PRN Reason: Constipation Last Admin: 06/19/19 22:15 Dose: 10 mg Bisacodyl (Dulcolax) 10 mg [place] Q12H PRN PRN Reason: Constipation Dextrose/Water (Dextrose 50%) 25 gm SLOW IVP PRN PRN PRN Reason: PER HYPOGLYCEMIC PROTOCOL Famotidine (Pepcid) 20 mg SLOW IVP Q12HR [facility] Last Admin: 06/21/19 20:54 Dose: 20 mg Furosemide (Lasix) 40 mg SLOW IVP DAILY [facility] Last Admin: 06/21/19 09:26 Dose: 40 mg Glucagon (Glucagon) 1 mg SC PRN PRN PRN Reason: PER HYPOGLYCEMIC PROTOCOL Guaifenesin/Dextromethorphan (Robitussin Dm) 15 ml PO Q4H PRN PRN Reason: Cough Last Admin: 06/21/19 21:18 Dose: 15 ml Hydralazine HCl (Apresoline) 10 mg SLOW IVP Q6H PRN PRN Reason: To Maintain SBP< 140mmHG Insulin Human Regular 100 (units/ Sodium Chloride) 101 mls @ 0 mls/hr IVPB INF [facility]; Protocol Last Admin: 06/17/19 16:52 Dose: 101 mls Dextrose/Water (D5w) 1,000 mls @ 0 mls/hr IV INF PRN PRN Reason: PRN HYPOGLYCEMIC PROTOCOL Phenylephrine HCl 20 mg/ (Sodium Chloride) 502 mls @ 0 mls/hr IV INF [facility]; Protocol Last Admin: 06/22/19 02:00 Dose: 502 mls Morphine Sulfate (Morphine) 2 mg SLOW IVP Q15MIN PRN PRN Reason: Severe Pain (7-10) Last Admin: 06/17/19 13:06 Dose: 2 mg Ondansetron HCl (Zofran) 4 mg IVP Q6H PRN PRN Reason: Nausea/Vomiting Last Admin: 06/18/19 05:41 Dose: 4 mg Potassium Chloride (Kcl) 20 meq IVPB PRN PRN PRN Reason: K level </= 4.0 Potassium Chloride (Klor-Con 10) 10 meq PO QAM-WM [facility] Last Admin: 06/21/19 09:25 Dose: 10 meq Promethazine HCl (Phenergan) 6.25 mg IM Q4H PRN PRN Reason: Nausea/Vomiting Simvastatin (Zocor) 40 mg PO QPM [facility] Last Admin: 06/21/19 20:54 Dose: 40 mg Sodium Chloride (Flush - Normal Saline) 10 ml IVF Q12HR [facility] Last Admin: 06/21/19 21:44 Dose: Not Given Sodium Chloride (Flush - Normal Saline) 10 ml IVF PRN PRN PRN Reason: Saline Flush Last Admin: 06/19/19 11:51 Dose: 10 ml Vital Signs & Weight: Vital Signs Temp Pulse Ox 06/22/19 04:00 97.9 F 06/22/19 02:22 94 L 06/22/19 00:00 97.7 F 06/21/19 20:00 98.5 F 06/21/19 19:56 96 Weight 289 lb 7.471 oz - Physical Exam General: alert & oriented x3 Neck: supple neck, midline trachea Cardiac: no murmur, regular rate, regular rhythm Lungs: normal exam Neuro: grossly intact Abdomen: non-tender, no masses Extremities: no clubbing, no edema - Labs Result Diagrams: 06/22/19 04:25 06/22/19 04:25 - Assessment/Plan Assessment/Plan: CAD s/p CABG Hypotension Plan 06/22 Transfuse wean off aubrie Add digoxin hold BB, ACEI, ARB till BP more stable If not tolerating stopping aubrie, JEANIE tomorrow Plan 06/21 Wean off aubrie Cortisol level WNL Echo difficult to see Consider JEANIE on sunday if not able to wean off aubrie to assess the LV; will dicuss with CV Plan 06/20 remains hypotension requiring neosyneprhine Contiue to wean off aubrie Check cortisol level checek echo CXR yesterday without pneumo CXR this am pending Plan 06/19 Consider adding dobutrex EF 45-50% in the past but difficult to quantify secondary to poor endocardial definition NS 500cc bolus Hb stable (not anemia as cause of hypotension)
[2019-06-22] MEDS: Potassium Chloride 10 MEQ TAB PO SCH (08:09)
[2019-06-22] MEDS: Digoxin 0.25 MG TAB PO SCH ×3 (08:09→20:03)
[2019-06-22] MEDS ORDERED: Potassium Chloride 20 MEQ in Premix Bag 1 BAG IVPB SCH (09:45)
[2019-06-22] MEDS: Famotidine/PF 20 mg/2ml Vial SLOW IVP SCH ×2 (09:54→21:17)
[2019-06-22] MEDS: Albumin 25% 25 GM/100 ML BOT IVPB SCH (09:54)
[2019-06-22] MEDS: Aspirin Chewable 81 MG TAB PO SCH (09:54)
[2019-06-22] MEDS: Furosemide 40 MG/4 ML VIAL SLOW IVP SCH (09:54)
[2019-06-22] MEDS ORDERED: Hetastarch 6% 500 ML 500 ML IVPB SCH (10:00)
[2019-06-22] MEDS: Guaifenesin DM 100-10/5 ML UDCUP PO PRN ×2 (10:01→16:43)
[2019-06-22] MEDS: Benzonatate 100 MG CAP PO SCH ×2 (15:03→21:17)
[2019-06-22] MEDS: Simvastatin 40 MG TAB PO SCH (21:17)
[2019-06-23] MEDS: Digoxin 0.25 MG TAB PO SCH (02:03)
[2019-06-23] MEDS: Guaifenesin DM 100-10/5 ML UDCUP PO PRN ×2 (02:21→13:01)
[2019-06-23 05:10] LABS: #Eosinphils 0.1 thou/uL (0.0-0.7); #Monocytes 0.5 thou/uL (0.11-0.59); #Neutrophils 4.5 thou/uL (1.40-6.50); %Eosinophils 2.3 % (0.0-10.0); %Lymphocytes 17.1 % (21.0-51.0); %Monocytes 7.3 % (0.0-10.0); %Neutrophils 73.3 % (42.0-75.0); Hemoglobin 8.5 g/dL (14.0-18.0); Mean Corpuscular HGB CONC 33.1 g/dL (32.0-36.0); Mean Corpuscular Hemoglobin 30.3 pg (27.0-31.0); Mean Corpuscular Volume 91.6 fL (78.0-98.0); Mean Platelet Volume 7.4 fL (7.4-10.4); Platelet Count 163 thou/uL (130-400); RBC Distribution Width 16.2 % (11.5-14.5); White Blood Cell (WBC) Count 6.1 thou/uL (4.8-10.8)
[2019-06-23 05:28] LABS: Anion Gap 8 mmol/L (10-20); BUN (Urea Nitrogen) 11 mg/dL (8.4-25.7); Calc. Creatinine Clearance 165 mL/min (70-130); Calcium 7.8 mg/dL (7.8-10.44); Carbon Dioxide 29 mmol/L (23-31); Chloride 103 mmol/L (98-107); Estimated GFR-MDRD Greater than 90; Glucose 99 mg/dL (83-110); Potassium 3.3 mmol/L (3.5-5.1); Sodium 137 mmol/L (136-145)
[2019-06-23] MEDS ORDERED: Ondansetron PF 4 MG/2 ML Vial IVP PRN (07:14)
[2019-06-23] MEDS ORDERED: HYDROcodone/Acetaminophen 5/325 mg Tablet PO PRN (07:14)
[2019-06-23] MEDS ORDERED: Mag-Al 1200 mg/1200 mg/30 ML UDCUP PO PRN (07:14)
[2019-06-23] MEDS ORDERED: Nitroglycerin 0.4 MG TAB (25 Tab Bottle) SL PRN (07:14)
[2019-06-23] MEDS ORDERED: Mineral Oil ENEMA PR PRN (07:14)
[2019-06-23] MEDS: Potassium Chloride 20 MEQ TAB PO SCH (07:39)
--- NOTE | 2019-06-23 07:45 | PDOC.CPN ---
- Subjective Date: 06/23/19 Time: 07:44 Interval history: Doing much better. Off pressors. No complaints. In SR. - Review of Systems General: denies: fever/chills, weight/appetite/sleep changes, night sweats, fatigue Respiratory: denies: cough, congestion, shortness of breath, exercise intolerance Cardiovascular: denies: chest pain, palpitation, edema, paroxysmal nocturnal dyspnea, orthopnea Gastrointestinal: denies: nausea, vomiting, diarrhea, constipation, abd pain, GI bleeding - Objective Allergies/Adverse Reactions: Allergies Allergy/AdvReac Type Severity Reaction Status Date / Time No Known Allergies Allergy Verified 06/11/19 10:36 Visit Medications: Current Medications Hydrocodone Bitart/Acetaminophen ([place] 5/325) 1 tab PO Q4H PRN PRN Reason: Moderate Pain (4-6) Al Hydroxide/Mg Hydroxide (Maalox) 30 ml PO Q4H PRN PRN Reason: Indigestion Benzonatate (Tessalon) 200 mg PO TID [facility] Last Admin: 06/22/19 21:17 Dose: 200 mg Bisacodyl (Dulcolax) 10 mg PO Q12H PRN PRN Reason: Constipation Last Admin: 06/19/19 22:15 Dose: 10 mg Bisacodyl (Dulcolax) 10 mg RI Q12H PRN PRN Reason: Constipation Finasteride (Proscar) 5 mg PO DAILY [facility] Furosemide (Lasix) 40 mg SLOW IVP DAILY [facility] Last Admin: 06/22/19 09:54 Dose: 40 mg Guaifenesin/Dextromethorphan (Robitussin Dm) 15 ml PO Q4H PRN PRN Reason: Cough Mineral Oil (Fleet Mineral Oil) 133 ml [place] DAILYPRN PRN PRN Reason: Constipation Nitroglycerin (Nitrostat) 0.4 mg SL Q5MIN PRN PRN Reason: Chest Pain Ondansetron HCl (Zofran) 4 mg IVP Q6H PRN PRN Reason: Nausea/Vomiting Polyethylene Glycol (Miralax) 17 gm PO DAILY [facility] Potassium Chloride (K-Dur) 20 meq PO QAM-WM [facility] Last Admin: 06/23/19 07:39 Dose: 20 meq Simvastatin (Zocor) 40 mg PO QPM [facility] Last Admin: 06/22/19 21:17 Dose: 40 mg Tamsulosin HCl (Flomax) 0.4 mg PO DAILY [facility] Vital Signs & Weight: Vital Signs Temp Pulse Pulse Ox 06/23/19 02:03 81 06/23/19 00:00 98.3 F 06/22/19 20:03 81 06/22/19 20:00 95 Weight 283 lb 11.759 oz - Physical Exam General: alert & oriented x3 Neck: no masses, no bruit Cardiac: no murmur, regular rate, regular rhythm Lungs: normal exam, no wheezes Neuro: grossly intact - Labs Result Diagrams: 06/23/19 04:53 06/23/19 04:53 - Assessment/Plan Assessment/Plan: CAD PAF s/p CABG Hypotension PLAN 06/23 АННА ligation Doing better Off pressors transfer to floor Hold BB, ACEI, ARB till BP more stable over 24 hours statin, IS and PT Plan 06/22 Transfuse wean off aubrie Add digoxin hold BB, ACEI, ARB till BP more stable If not tolerating stopping aubrie, JEANIE tomorrow Plan 06/21 Wean off aubrie Cortisol level WNL Echo difficult to see Consider JEANIE on sunday if not able to wean off aubrie to assess the LV; will dicuss with CV Plan 06/20 remains hypotension requiring neosyneprhine Contiue to wean off aubrie Check cortisol level checek echo CXR yesterday without pneumo CXR this am pending Plan 06/19 Consider adding dobutrex EF 45-50% in the past but difficult to quantify secondary to poor endocardial definition NS 500cc bolus Hb stable (not anemia as cause of hypotension)
[2019-06-23] MEDS: Furosemide 40 MG/4 ML VIAL SLOW IVP SCH (09:15)
[2019-06-23] MEDS: Tamsulosin HCl 0.4 MG CAP PO SCH (09:15)
[2019-06-23] MEDS: Benzonatate 100 MG CAP PO SCH ×3 (09:15→20:17)
[2019-06-23] MEDS: Finasteride 5 MG TAB PO SCH (09:15)
[2019-06-23] MEDS: Polyethylene Glycol 3350 17 GM Packet PO SCH (09:16)
[2019-06-23] MEDS: Simvastatin 40 MG TAB PO SCH (20:18)
[2019-06-24] MEDS: Guaifenesin DM 100-10/5 ML UDCUP PO PRN ×3 (10:04→19:25)
[2019-06-24] MEDS: Benzonatate 100 MG CAP PO SCH ×3 (10:05→20:04)
[2019-06-24] MEDS: Finasteride 5 MG TAB PO SCH (10:05)
[2019-06-24] MEDS: Polyethylene Glycol 3350 17 GM Packet PO SCH (10:05)
[2019-06-24] MEDS: Furosemide 40 MG/4 ML VIAL SLOW IVP SCH (10:05)
[2019-06-24] MEDS: Potassium Chloride 20 MEQ TAB PO SCH (10:05)
[2019-06-24] MEDS: Tamsulosin HCl 0.4 MG CAP PO SCH (10:06)
[2019-06-24] MEDS: Simvastatin 40 MG TAB PO SCH (20:04)
[2019-06-25] MEDS: Guaifenesin DM 100-10/5 ML UDCUP PO PRN ×4 (04:03→20:01)
[2019-06-25] MEDS: Potassium Chloride 20 MEQ TAB PO SCH (08:42)
[2019-06-25] MEDS: Benzonatate 100 MG CAP PO SCH ×3 (08:42→20:02)
[2019-06-25] MEDS: Finasteride 5 MG TAB PO SCH (08:43)
[2019-06-25] MEDS: Tamsulosin HCl 0.4 MG CAP PO SCH (08:43)
[2019-06-25] MEDS: Polyethylene Glycol 3350 17 GM Packet PO SCH (08:43)
[2019-06-25 13:49] VITALS: BMI 38.9
[2019-06-25] MEDS: Simvastatin 40 MG TAB PO SCH (20:02)
--- NOTE | 2019-06-26 06:41 | PDOC.CPN ---
- Subjective Date: 06/24/19 Time: 09:00 Interval history: No overnight events. Doing well. - Review of Systems General: denies: fever/chills, weight/appetite/sleep changes, night sweats, fatigue Respiratory: reports: cough Cardiovascular: reports: chest pain (chest wall pain) Gastrointestinal: denies: nausea, vomiting, diarrhea, constipation, abd pain, GI bleeding Musculoskeletal: denies: pain, tenderness, stiffness, swelling, arthritis/ arthralgias Neurological: denies: numbness, syncope, seizure, weakness - Objective Allergies/Adverse Reactions: Allergies Allergy/AdvReac Type Severity Reaction Status Date / Time No Known Allergies Allergy Verified 06/11/19 10:36 Visit Medications: Current Medications Hydrocodone Bitart/Acetaminophen ([place] 5/325) 1 tab PO Q4H PRN PRN Reason: Moderate Pain (4-6) Al Hydroxide/Mg Hydroxide (Maalox) 30 ml PO Q4H PRN PRN Reason: Indigestion Last Admin: 06/25/19 20:01 Dose: 30 ml Benzonatate (Tessalon) 200 mg PO TID [facility] Last Admin: 06/25/19 20:02 Dose: 200 mg Bisacodyl (Dulcolax) 10 mg PO Q12H PRN PRN Reason: Constipation Last Admin: 06/19/19 22:15 Dose: 10 mg Bisacodyl (Dulcolax) 10 mg [place] Q12H PRN PRN Reason: Constipation Finasteride (Proscar) 5 mg PO DAILY [facility] Last Admin: 06/25/19 08:43 Dose: 5 mg Guaifenesin/Dextromethorphan (Robitussin Dm) 15 ml PO Q4H PRN PRN Reason: Cough Last Admin: 06/25/19 20:01 Dose: 15 ml Mineral Oil (Fleet Mineral Oil) 133 ml [place] DAILYPRN PRN PRN Reason: Constipation Nitroglycerin (Nitrostat) 0.4 mg SL Q5MIN PRN PRN Reason: Chest Pain Ondansetron HCl (Zofran) 4 mg IVP Q6H PRN PRN Reason: Nausea/Vomiting Polyethylene Glycol (Miralax) 17 gm PO DAILY [facility] Last Admin: 06/25/19 08:43 Dose: Not Given Potassium Chloride (K-Dur) 20 meq PO QAM-[facility] Last Admin: 06/25/19 08:42 Dose: 20 meq Simvastatin (Zocor) 40 mg PO QPM [facility] Last Admin: 06/25/19 20:02 Dose: 40 mg Tamsulosin HCl (Flomax) 0.4 mg PO DAILY [facility] Last Admin: 06/25/19 08:43 Dose: 0.4 mg Vital Signs & Weight: Vital Signs Temp Pulse Resp BP Pulse Ox 06/26/19 04:00 98.4 F 73 16 112/75 96 06/25/19 20:00 96 06/25/19 19:56 98.1 F 80 18 124/77 94 L Admit Weight 273 lb Weight 271 lb - Physical Exam General: alert & oriented x3, appears well HEENT: mucus membranes moist Cardiac: regular rate and rhythm Lungs: clear to auscultation, other (decreased BS at bases) Neuro: grossly intact Abdomen: soft Extremities: 1+ LE edema Skin: clear Musculoskeletal: normal range of motion - Labs Result Diagrams: 06/23/19 04:53 06/23/19 04:53 - Assessment/Plan Assessment/Plan: 1. CAD s/p CABG and АННА ligation 2. Paroxysmal AFib 3. HTN Overall doing well. Continue increased activity. Add bblockers when BP tolerates.
--- NOTE | 2019-06-26 06:44 | PDOC.CPN ---
- Subjective Date: 06/25/19 Time: 08:50 Interval history: Resting comfortably. No new complaints. - Review of Systems General: denies: fever/chills, weight/appetite/sleep changes, night sweats, fatigue Respiratory: denies: cough, congestion, shortness of breath, exercise intolerance Cardiovascular: denies: chest pain, palpitation, edema, paroxysmal nocturnal dyspnea, orthopnea Gastrointestinal: denies: nausea, vomiting, diarrhea, constipation, abd pain, GI bleeding Musculoskeletal: denies: pain, tenderness, stiffness, swelling, arthritis/ arthralgias Neurological: denies: numbness, syncope, seizure, weakness - Objective Allergies/Adverse Reactions: Allergies Allergy/AdvReac Type Severity Reaction Status Date / Time No Known Allergies Allergy Verified 06/11/19 10:36 Visit Medications: Current Medications Hydrocodone Bitart/Acetaminophen ([place] 5/325) 1 tab PO Q4H PRN PRN Reason: Moderate Pain (4-6) Al Hydroxide/Mg Hydroxide (Maalox) 30 ml PO Q4H PRN PRN Reason: Indigestion Last Admin: 06/25/19 20:01 Dose: 30 ml Benzonatate (Tessalon) 200 mg PO TID [facility] Last Admin: 06/25/19 20:02 Dose: 200 mg Bisacodyl (Dulcolax) 10 mg PO Q12H PRN PRN Reason: Constipation Last Admin: 06/19/19 22:15 Dose: 10 mg Bisacodyl (Dulcolax) 10 mg [place] Q12H PRN PRN Reason: Constipation Finasteride (Proscar) 5 mg PO DAILY [facility] Last Admin: 06/25/19 08:43 Dose: 5 mg Guaifenesin/Dextromethorphan (Robitussin Dm) 15 ml PO Q4H PRN PRN Reason: Cough Last Admin: 06/25/19 20:01 Dose: 15 ml Mineral Oil (Fleet Mineral Oil) 133 ml [place] DAILYPRN PRN PRN Reason: Constipation Nitroglycerin (Nitrostat) 0.4 mg SL Q5MIN PRN PRN Reason: Chest Pain Ondansetron HCl (Zofran) 4 mg IVP Q6H PRN PRN Reason: Nausea/Vomiting Polyethylene Glycol (Miralax) 17 gm PO DAILY [facility] Last Admin: 06/25/19 08:43 Dose: Not Given Potassium Chloride (K-Dur) 20 meq PO QAM-WM [facility] Last Admin: 06/25/19 08:42 Dose: 20 meq Simvastatin (Zocor) 40 mg PO QPM [facility] Last Admin: 06/25/19 20:02 Dose: 40 mg Tamsulosin HCl (Flomax) 0.4 mg PO DAILY [facility] Last Admin: 06/25/19 08:43 Dose: 0.4 mg Vital Signs & Weight: Vital Signs Temp Pulse Resp BP Pulse Ox 06/26/19 04:00 98.4 F 73 16 112/75 96 06/25/19 20:00 96 06/25/19 19:56 98.1 F 80 18 124/77 94 L Admit Weight 273 lb Weight 271 lb - Physical Exam General: alert & oriented x3, appears well HEENT: mucus membranes moist Neck: supple neck Cardiac: regular rate and rhythm Lungs: clear to auscultation Neuro: grossly intact Abdomen: soft Extremities: no cyanosis, no edema Skin: clear Musculoskeletal: normal range of motion - Labs Result Diagrams: 06/23/19 04:53 06/23/19 04:53 - Assessment/Plan Assessment/Plan: 1. CAD s/p CABG and АННА ligation 2. Paroxysmal AF 3. HTN BP remains mildly on the low side. Will try to add metoprolol 12.5mg at night only and see if tolerated. Continue PT.
[2019-06-26] MEDS: Finasteride 5 MG TAB PO SCH (08:23)
[2019-06-26] MEDS: Benzonatate 100 MG CAP PO SCH (08:23)
[2019-06-26] MEDS: Potassium Chloride 20 MEQ TAB PO SCH (08:23)
[2019-06-26] MEDS: Tamsulosin HCl 0.4 MG CAP PO SCH (08:24)
[2019-06-26] MEDS: Guaifenesin DM 100-10/5 ML UDCUP PO PRN (08:24)
[2019-06-26] MEDS: Polyethylene Glycol 3350 17 GM Packet PO SCH (08:24)
[2019-06-26 12:28] VITALS: BP 94/55; TEMP 98.7
--- NOTE | 2019-06-26 14:38 | DIS ---
DATE OF ADMISSION: 06/17/2019 DATE OF DISCHARGE: 06/26/2019 HOSPITAL COURSE: The patient was admitted for coronary artery bypass grafting following a cardiac cath in April. He underwent grafting to the LAD with MATIAS and then a rather large saphenous vein to an OM, right PDA, and a diagonal and underwent left atrial appendage ligation. He received a unit of platelets at the end of the case due to bleeding. Postoperatively, his hemoglobin drifted down to about 8.5 over the course of his hospital stay. He required a prolonged stay in the ICU due to low blood pressure managed primarily with a Sebastián-Synephrine drip. Cardiac echo was obtained. However, due to the quality, much could be said about his left ventricular systolic function. He was ambulating the halls independently and his most recent weight was 231 pounds. DISCHARGE MEDICATIONS: He will be discharged home on: 1. Metoprolol succinate 12.5 q.h.s. 2. Proscar 5 a day. 3. Flomax 0.4 a day. 4. Atorvastatin 40 a day. 5. Tessalon Per[place] 200 t.i.d. for 10 days. 6. Protonix 40 mg a day. He remained in sinus rhythm throughout the postoperative course. Discharge and followup instructions have been given. Job ID: [id number]
[2019-06-26] MEDS ORDERED: Metoprolol Tartrate 25 MG TAB PO SCH (21:00)
== END 2019-06-26 13:29 | disposition home or self-care (01) | DRG 236 ==
LOC: EDSTATUS 06-12 10:30 → SURG A 06-17 05:40 → CCU 06-17 12:35 → 2NO 06-23 11:14
PROVIDERS: ADMIT Thoracic Surgery (Cardiothoracic Vascular Surgery); ATTEND Thoracic Surgery (Cardiothoracic Vascular Surgery)
PROC: 02100Z9 Bypass Coronary Artery, One Artery from Left Internal Mammary, Open Approach (ICD-10-PCS; principal; 2019-06-17)
PROC: 021309W Bypass Coronary Artery, Four or More Arteries from Aorta with Autologous Venous Tissue, Open Approach (ICD-10-PCS; 2019-06-17)
PROC: 06BQ0ZZ Excision of Left Saphenous Vein, Open Approach (ICD-10-PCS; 2019-06-17)
PROC: 5A1221Z Performance of Cardiac Output, Continuous (ICD-10-PCS; 2019-06-17)
PROC: 02L70ZK Occlusion of Left Atrial Appendage, Open Approach (ICD-10-PCS; 2019-06-17)
PROC: 30233R1 Transfusion of Nonautologous Platelets into Peripheral Vein, Percutaneous Approach (ICD-10-PCS; 2019-06-17)
PROC: 3E033XZ Introduction of Vasopressor into Peripheral Vein, Percutaneous Approach (ICD-10-PCS; 2019-06-18)
PROC: 30233N1 Transfusion of Nonautologous Red Blood Cells into Peripheral Vein, Percutaneous Approach (ICD-10-PCS; 2019-06-22)
DX: I25.10 Atherosclerotic heart disease of native coronary artery without angina pectoris (principal); E66.01 Morbid (severe) obesity due to excess calories; I10 Essential (primary) hypertension; E78.5 Hyperlipidemia, unspecified; F41.9 Anxiety disorder, unspecified; J30.2 Other seasonal allergic rhinitis; D64.9 Anemia, unspecified; I48.0 Paroxysmal atrial fibrillation; I95.9 Hypotension, unspecified; Z68.38 Body mass index [BMI] 38.0-38.9, adult; Z79.01 Long term (current) use of anticoagulants; Z79.899 Other long term (current) drug therapy; Z87.891 Personal history of nicotine dependence; Z95.5 Presence of coronary angioplasty implant and graft
CPT/HCPCS: 36416; 36430; 71045; 80048; 82533; 82805; 85025; 85027; 85610; 85730; 86850; 86900; 86901; 93005; 93010; 93306; 93798; 94002; J0690; J1250; J1265; J1642; J1644; J1815; J1885; J1940; J2001; J2250; J2270; J2370; J2405; J2440; J2704; J2720; J3010; J3370; J3475; J3480; J3490; J7050; P9016; P9035; P9045; P9047; S0017; S0028

== ENCOUNTER 2019-10-10 08:36 | Outpatient (CLI) | payer MEDICARE ==
--- NOTE | 2019-10-10 10:26 | CT ---
Exam: CT angiogram of the chest HISTORY: Gasless left atrial appendage ligation. Assess flow in the left atrial appendage. COMPARISON: None TECHNIQUE: CT angiogram of the chest is performed in the axial plane. Three-dimensional reformatted i mages are submitted for interpretation FINDINGS: Mediastinum: No mass or hematoma. Nonspecific mediastinal lymph nodes are noted. There does appear to be enlarged subcarinal lymph node measuring 2.0 x 1.8 cm. There is also fullness in the right infrahilar region. Heart: Normal size. No significant pericardial fluid. Small focus of enhancement is still noted in th e left atrial appendage measuring 1.2 x 1.3 cm suggesting a small remnant. Aorta: No aneurysm or dissection Upper solid abdominal viscera: No acute abnormality. Cholelithiasis, without evidence of cholecystiti s. Trachea and central bronchi: Patent Pleural spaces: Small left-sided pleural effusion. Lung parenchyma: Scattered lung parenchymal changes suggesting component of emphysema and scar. Bronc hiectasis in both lower lobes. Pneumothorax: None Osseous structures: No lytic or blastic lesions Pulmonary arteries: Adequate contrast opacification pulmonary arterial system to the level of segment al arteries. No filling defect to suggest pulmonary embolism IMPRESSION: 1. Small left-sided effusion. Emphysema and chronic lung parenchymal changes 2. Small focus of enhancement of the left atrium suggesting a remnant of the left atrial appendage, a s disc above 3. Enlarged subcarinal lymph node, nonspecific. Consider PET imaging. CODE T
[2019-10-10] MEDS ORDERED: Iopamidol-370 76% 500 ML 1 ML ONE (11:41)
== END 2019-10-10 08:37 | disposition home or self-care (01) ==
LOC: BICCT 08:36
PROVIDERS: ATTEND Internal Medicine Cardiovascular Disease
DX: Z48.812 Encounter for surgical aftercare following surgery on the circulatory system (principal); J90 Pleural effusion, not elsewhere classified; R59.0 Localized enlarged lymph nodes; Z98.890 Other specified postprocedural states
CPT/HCPCS: 71275; 82565; Q9967

== ENCOUNTER 2019-12-08 10:00 | Outpatient (CLI) | payer MEDICARE ==
--- NOTE | 2019-12-08 10:25 | RAD ---
XR Chest Pa Lat STANDARD HISTORY: Dyspnea COMPARISON: Chest x-ray of 06/20/2019 06/19/2019 06/18/2019 FINDINGS: Heart size is borderline with postop sternotomy changes. Parenchymal lung changes are felt to be fairly similar to the previous exam questionable slight increase to some of the right midlung field parenchymal changes. IMPRESSION: Chronic appearing lung changes the parenchyma changes in the right midlung field are slig htly more prominent than the prior exams some of this may just be technique related clinical correlation is recommended
== END 2019-12-08 10:01 | disposition home or self-care (01) ==
LOC: BICRAD 10:00
PROVIDERS: ATTEND Internal Medicine Critical Care Medicine
DX: R06.00 Dyspnea, unspecified (principal); J98.4 Other disorders of lung
CPT/HCPCS: 71046

== ENCOUNTER 2020-04-22 09:52 | Outpatient (CLI) | payer MEDICARE ==
[2020-04-22] MEDS ORDERED: Iopamidol-370 76% 500 ML 1 ML ONE (13:00)
--- NOTE | 2020-04-22 13:07 | CT ---
CT OF CHEST PERFORMED WITH CONTRAST ENHANCEMENT: Date: 04/22/2020 HISTORY: Follow-up of lymphadenopathy. COMPARISON: CT angio of chest that was performed on 10/10/2019. FINDINGS: Lungs are clear of any infiltrative process. There is some parenchymal scarring present with bronchie ctatic changes in the lower lobes. Left-sided pleural effusion noted on the prior examination has res olved. The mediastinal adenopathy is stable. There are prominent prevascular nodes that are subcentimeter in short axis dimension. Similar size right paratracheal nodes are present. One of the larger nodes is a node in the azygoesophageal recess which measures approximately 1.9 cm. It is stable. There are rig ht hilar nodes also stable. Postop sternotomy changes are noted. The visualized liver parenchyma shows no focal findings. Area of increased attenuation in the gallbla dder lumen may represent a small stone. IMPRESSION: 1. Chronic lung changes with bronchiectatic changes in the lower lobes. 2. Stable mediastinal and hilar adenopathy. 3. Possible small gallstones. POS: [facility]
== END 2020-04-22 09:53 | disposition home or self-care (01) ==
LOC: BICCT 09:52
PROVIDERS: ATTEND Internal Medicine Critical Care Medicine
DX: R59.1 Generalized enlarged lymph nodes (principal); J98.4 Other disorders of lung
CPT/HCPCS: 71260; 82565; Q9967

== ENCOUNTER 2020-11-09 12:27 | Outpatient (CLI) | payer MEDICARE | END 2020-11-09 12:28 | disposition home or self-care (01) | LOC: BICRAD 12:27 | PROVIDERS: ATTEND Family Medicine | DX: M54.5 Low back pain (principal); M47.816 Spondylosis without myelopathy or radiculopathy, lumbar region | CPT/HCPCS: 72110 ==

== ENCOUNTER 2021-05-26 07:45 | Outpatient (CLI) | payer MEDICARE | END 2021-05-26 07:46 | disposition home or self-care (01) | LOC: BICCT 07:45 | PROVIDERS: ATTEND Internal Medicine Cardiovascular Disease | DX: I48.0 Paroxysmal atrial fibrillation (principal); R59.0 Localized enlarged lymph nodes | CPT/HCPCS: 71275; 82565 ==